=== PATIENT | male | born 1950 | race Caucasian/White ===

== ENCOUNTER 2018-08-16 22:58 | Inpatient (IN) ==
[2018-08-17] LABS: Basophils # 0.1 K/mcL (0.0-0.2); Basophils % 0.5 %; Eosinophils # 0.3 K/mcL (0.0-0.6); Eosinophils % 2.2 %; Hematocrit 41.7 % (37.5-50.1); Hemoglobin 14.4 g/dL (12.9-16.9); Immature Granulocytes % 0.6 % (0-4); Lymphocytes # 2.1 K/mcL (0.6-4.6); Lymphocytes % 16.5 %; Mean Corpuscular HGB Conc 34.5 g/dL (31.6-35.5); Mean Corpuscular Hemoglobin 29.8 pg (28.0-33.3); Mean Corpuscular Volume 86.3 fL (83.0-100.0); Mean Platelet Volume 9.1 fL (9.4-12.4); Monocytes # 1.1 K/mcL (0.0-1.3); Monocytes % 8.7 %; Neutrophils # 9.3 K/mcL (1.6-8.9); Platelet Count 305 K/mcL (140-400); Red Blood Count 4.83 M/mcL (4.19-5.50); Red Cell Distribution Width 12.6 % (11.5-14.5); Segmented Neutrophils % 71.5 %
[2018-08-17 00:06] LABS: Prothrombin Time 11.3 Seconds (9.4-12.1)
[2018-08-17 00:09] LABS: Activated Partial Thrombo Time 36.3 Seconds (26.0-36.0)
[2018-08-17] MEDS ORDERED: Aspirin 325 MG TABLET PO ONE (00:11)
[2018-08-17] MEDS ORDERED: Isovue-370 500 ML BOTTLE IVP ONE (00:12)
[2018-08-17 00:19] LABS: BUN/Creatinine Ratio 14 (6-26); Blood Urea Nitrogen 13 mg/dL (8-23); Calcium 9.4 mg/dL (8.6-10.3); Carbon Dioxide 23 mEq/L (23-29); Chloride 102 mEq/L (98-107); Glucose 218 mg/dL (70-105); Osmolality,Calculated 285 (280-300); Sodium 134 mEq/L (136-145); eGFR For Non-African Americans > 60 (> 60)
[2018-08-17 00:24] LABS: Troponin I 0.05 ng/mL (< 0.04)
--- NOTE | 2018-08-17 00:48 | Emergency Department Note ---
Disposition Clinical Impression: Chest pain Qualifiers: Chest pain type: unspecified Qualified Code(s): R07.9 - Chest pain, unspecified COPD (chronic obstructive pulmonary disease) Qualifiers: COPD type: unspecified COPD Qualified Code(s): J44.9 - Chronic obstructive pulmonary disease, unspecified Disposition: Admitted As Inpatient Condition: Good Chest Pain HPI - General Chief Complaint: ED Chest Pain Stated Complaint: CP/SOB Time Seen by Provider: 08/16/18 23:10 Source: patient, family Limitations: no limitations Vital Signs Reviewed: Yes Nursing Notes Reviewed: Yes - History of Present Illness HPI Narrative: 67-year-old male history of hypertension, diabetes, and coronary arterial disease presents to the emergency department with chest pain and shortness of breath. Patient reports earlier this evening around 2100 experiencing left chest pain. Prior to the episode he was feeling short of breath. 10 minutes later he took 1 nitro which completely resolved his symptoms. He reports a heaviness over the left chest without any radiation. Denies any recent illness fever cough or congestion. 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 He was recently evaluated here the emergency department and found to have elevated troponin with a heart catheterization sh owing severe vessel disease. No intervention was performed at that time. He took an 81 mg aspirin earlier this morning. Denies history of blood clots. Pt complaint: chest pain Severity scale (1-10): 2 - Related Data Home Medications Medication Instructions Recorded Confirmed Diltiazem HCl [Diltiazem 24Hr Cd] 240 mg PO DAILY 08/04/18 08/04/18 Etodolac 400 mg PO BID 08/04/18 08/04/18 Lisinopril [Zestril] 20 mg PO DAILY 08/04/18 08/04/18 Metformin HCl 1,000 mg PO BID 08/04/18 08/04/18 Ranitidine HCl [Acid Auto Refinisher] 150 mg PO BID 08/04/18 08/04/18 Simvastatin [Zocor] 40 mg PO DAILY 08/04/18 08/04/18 Tamsulosin [Flomax] 0.4 mg PO DAILY 08/04/18 08/04/18 glipiZIDE [Glipizide] 10 mg PO DAILY 08/04/18 08/04/18 Previous Rx's Medication Instructions Recorded Aspirin 81 mg PO DAILY 30 Days #30 tab.chew 08/05/18 Clopidogrel [Plavix] 75 mg PO DAILY 30 Days #30 tablet 08/05/18 Metoprolol [Lopressor] 12.5 mg PO BID 30 Days #30 tablet 08/05/18 Nitroglycerin 0.4 mg SL Q8HR PRN 30 Days #90 08/05/18 tab.subl Allergies Allergy/AdvReac Type Severity Reaction Status Date / Time No Known Allergies Allergy Verified 08/16/18 23:08 All systems ED: reviewed and negative except as stated. Review of Systems: As Per HPI Constitutional: Denies: fever, chills ENT ED: Denies: congestion Cardiovascular: Reports: chest pain Respiratory: Reports: dyspnea. Denies: cough Gastrointestinal: Denies: abdominal pain, nausea, vomiting Musculoskeletal: Denies: back pain Integumentary: Denies: rash, abrasion Neurological: Denies: headache, confusion Chest Pain PMH - Past Medical History Medical history: Reports: diabetes, hypertension, other - Social History Smoking Status: Former smoker Alcohol use: Reports: rarely Drug use: Reports: none Physical Exam - General Limitations: no limitations General appearance: alert, in no apparent distress - Head Head exam: atraumatic, normocephalic, normal inspection - Eye Eye exam: Present: normal appearance, PERRL, EOMI - ENT ENT exam: normal exam, normal oropharynx, mucous membranes moist - Neck Neck exam: Present: normal inspection, full ROM, trachea midline - Chest Chest inspection: Present: symmetric chest wall rise, tenderness (Left chest wall) - Respiratory Respiratory exam: Present: normal lung sounds bilaterally. Absent: respiratory distress, wheezes - Cardiovascular Cardiovascular exam: Present: regular rate, normal rhythm, normal heart sounds - Abdominal Exam Abdominal exam: Present: soft, Non-Tender, normal bowel sounds. Absent: tenderness, distention, guarding, rebound, rigidity - Extremities Exam Extremities exam: Present: normal inspection, full ROM, normal capillary refill. Absent: tenderness, pedal edema, calf tenderness - Neurological Exam Neurological exam: Present: alert, oriented X3 - Psychiatric Psychiatric exam: Present: normal affect, normal mood - Skin Skin exam: Present: warm, dry, intact, normal color. Absent: rash, cyanosis, diaphoresis Course Course Narrative: Patient with history of cardiac ischemic disease presenting with chest pain or shortness of breath. Chest pain workup initiated here. EKG without any ischemic findings. Review of his prior hospitalization which showed severe 3 vessel disease including up to 100% occlusion with collaterals. There was no mention of any additional interventions. He denies history of stent placement. Aspirin here. - Reevaluation(s) Reevaluation #1: Chest x-ray with concern for pneumonia. CT scan to evaluate for possible pulmonary embolism was negative. He did have elevated troponin 0.5. BNP was not significantly elevated. Given the associated shortness of breath will treat him for possible healthcare associated pneumonia as he does have a leukocytosis. She will be given IV vancomycin and Zosyn. He will also be admitted for his elevated troponin and chest pain. Patients in agreement with this plan. - Consultations Consultation #1: Spoke with on-call hospitalist sivakumar Reese to admit for HCAP and elevated trop. No further orders at this time Vital Signs Temperature 97.4 F L 08/16/18 23:10 Pulse Rate 93 08/16/18 23:10 Respiratory Rate 16 08/16/18 23:10 Blood Pressure 167/79 08/16/18 23:10 O2 Sat by Pulse Oximetry 98 08/16/18 23:10 Temperature 97.4 F L 08/16/18 23:10 Pulse Rate 67 08/17/18 04:04 Respiratory Rate 19 08/17/18 04:04 Blood Pressure 137/81 08/17/18 04:04 O2 Sat by Pulse Oximetry 97 08/17/18 04:04 Oxygen Delivery Oxygen Delivery Room Air Chest Pain - MDM Narrative Medical decision making narrative: Patient was discussed with my attending physician who agrees with ED management and final disposition. They independently evaluated the patient. Please refer to their attestation to this encounter for additional information. This note was generated by [employer] voice recognition software and as a result grammatical or spelling errors may occur using this program. - Medical Records Medical records reviewed: Yes I reviewed the patient's medical records. - Lab Data Lab results reviewed: Yes I reviewed the patient's lab results. Result diagrams: 08/17/18 04:13 08/16/18 23:48 Lab Results 08/16/18 08/16/18 08/16/18 Range/Units 23:48 23:48 23:48 WBC 13.0 H (4.3-11.1) K/mcL RBC 4.83 (4.19-5.50) M/mcL Hgb 14.4 (12.9-16.9) g/dL Hct 41.7 (37.5-50.1) % MCV 86.3 (83.0-100.0) fL MCH 29.8 (28.0-33.3) pg MCHC 34.5 (31.6-35.5) g/dL RDW 12.6 (11.5-14.5) % Plt Count 305 (140-400) K/mcL MPV 9.1 L (9.4-12.4) fL Immature Gran % 0.6 (0-4) % Seg Neutrophils % 71.5 % Lymphocytes % 16.5 % Monocytes % 8.7 % Eosinophils % 2.2 % Basophils % 0.5 % Neutrophils # 9.3 H (1.6-8.9) K/mcL Lymphocytes # 2.1 (0.6-4.6) K/mcL Monocytes # 1.1 (0.0-1.3) K/mcL Eosinophils # 0.3 (0.0-0.6) K/mcL Basophils # 0.1 (0.0-0.2) K/mcL PT 11.3 (9.4-12.1) Seconds INR 1.0 APTT 36.3 H (26.0-36.0) Seconds Sodium 134 L (136-145) mEq/L Potassium 4.0 (3.5-5.1) mEq/L Chloride 102 (98-107) mEq/L Carbon Dioxide 23 (23-29) mEq/L BUN 13 (8-23) mg/dL Creatinine 0.95 (0.70-1.30) mg/dL Est GFR ( Amer) > 60 (> 60) Est GFR (Non-Af Amer) > 60 (> 60) BUN/Creatinine Ratio 14 (6-26) Glucose 218 H (70-105) mg/dL Calculated Osmolality 285 (280-300) Calcium 9.4 (8.6-10.3) mg/dL Troponin I 0.05 H* (< 0.04) ng/mL B-Natriuretic Peptide (Less than 100) pg/mL 08/17/18 Range/Units 00:39 WBC (4.3-11.1) K/mcL RBC (4.19-5.50) M/mcL Hgb (12.9-16.9) g/dL Hct (37.5-50.1) % MCV (83.0-100.0) fL MCH (28.0-33.3) pg MCHC (31.6-35.5) g/dL RDW (11.5-14.5) % Plt Count (140-400) K/mcL MPV (9.4-12.4) fL Immature Gran % (0-4) % Seg Neutrophils % % Lymphocytes % % Monocytes % % Eosinophils % % Basophils % % Neutrophils # (1.6-8.9) K/mcL Lymphocytes # (0.6-4.6) K/mcL Monocytes # (0.0-1.3) K/mcL Eosinophils # (0.0-0.6) K/mcL Basophils # (0.0-0.2) K/mcL PT (9.4-12.1) Seconds INR APTT (26.0-36.0) Seconds Sodium (136-145) mEq/L Potassium (3.5-5.1) mEq/L Chloride (98-107) mEq/L Carbon Dioxide (23-29) mEq/L BUN (8-23) mg/dL Creatinine (0.70-1.30) mg/dL Est GFR ( Amer) (> 60) Est GFR (Non-Af Amer) (> 60) BUN/Creatinine Ratio (6-26) Glucose (70-105) mg/dL Calculated Osmolality (280-300) Calcium (8.6-10.3) mg/dL Troponin I (< 0.04) ng/mL B-Natriuretic Peptide 31 (Less than 100) pg/mL - Radiology Data Radiology results reviewed: Yes I reviewed the patient's radiology results. Chest X-Ray 08/16/18 23:10 IMPRESSION: Left basilar pulmonary opacity may represent atelectasis, and/or pneumonia. Recommend radiographic follow-up to complete resolution. RECOMMENDATION: Consider follow-up chest radiograph in 6 weeks. D/ / Jeffrey Spencer MD / Jeffrey Spencer MD Interpreting Provider: Jeffrey Spencer MD Chest CTA 08/17/18 00:12 IMPRESSION: No evidence of pulmonary embolism or acute pulmonary abnormality. Coronary artery disease. D/ / Rivera Cameron MD / Rivera Cameron MD Interpreting Provider: Rivera Cameron MD - EKG Data EKG attestation: Yes I reviewed and interpreted this EKG. EKG results narrative: EKG performed 07/16/1990 beats per minute, good R wave progression, no ST elevation or depression, T wave inversion seen in the lateral leads. Compared to prior EKG performed 08/03/2018 with similar consistent findings. No acute ischemic changes. Heart Score - Score History: Moderately Suspicious EKG: Normal Age: Greater than 65 Risk Factors: Equal/Greater than 3 risk factor or history of atherosclerotic disease Troponin: 1-3x normal limit HEART Score Total: 6
[2018-08-17] MEDS ORDERED: Piperacillin/Tazobactam 3.375 GM in 0.9 % Sodium Chloride Mini Bag 100 ML IVPB ONE (03:01)
[2018-08-17] MEDS ORDERED: *HR* Heparin 5,000 UNIT/ML VIAL IVP PRN ×3 (03:15→13:56)
[2018-08-17] MEDS ORDERED: *HR* Heparin 5,000 UNIT/ML VIAL IVP ONE ×2 (03:15→13:56)
[2018-08-17] MEDS ORDERED: Heparin 25,000 UNIT/250 ML D5W 25,000 UNIT/250 ML IV.SOLN IVC SCH (03:15)
--- NOTE | 2018-08-17 03:20 | Emergency Department Note ---
Disposition Clinical Impression: Chest pain Qualifiers: Chest pain type: unspecified Qualified Code(s): R07.9 - Chest pain, unspecified COPD (chronic obstructive pulmonary disease) Qualifiers: COPD type: unspecified COPD Qualified Code(s): J44.9 - Chronic obstructive pulmonary disease, unspecified Disposition: Admitted As Inpatient Condition: Good Forms: ED Satisfaction Letter General Adult HPI - General Chief complaint: ED Chest Pain Stated complaint: CP/SOB Time Seen by Provider: 08/16/18 23:10 Source: patient, family Limitations: no limitations - History of Present Illness Pain Scale: 2 - Related Data Home Medications Medication Instructions Recorded Confirmed Diltiazem HCl [Diltiazem 24Hr Cd] 240 mg PO DAILY 08/04/18 08/04/18 Etodolac 400 mg PO BID 08/04/18 08/04/18 Lisinopril [Zestril] 20 mg PO DAILY 08/04/18 08/04/18 Metformin HCl 1,000 mg PO BID 08/04/18 08/04/18 Ranitidine HCl [Acid Middleware Solutions Architect] 150 mg PO BID 08/04/18 08/04/18 Simvastatin [Zocor] 40 mg PO DAILY 08/04/18 08/04/18 Tamsulosin [Flomax] 0.4 mg PO DAILY 08/04/18 08/04/18 glipiZIDE [Glipizide] 10 mg PO DAILY 08/04/18 08/04/18 Previous Rx's Medication Instructions Recorded Aspirin 81 mg PO DAILY 30 Days #30 tab.chew 08/05/18 Clopidogrel [Plavix] 75 mg PO DAILY 30 Days #30 tablet 08/05/18 Metoprolol [Lopressor] 12.5 mg PO BID 30 Days #30 tablet 08/05/18 Nitroglycerin 0.4 mg SL Q8HR PRN 30 Days #90 08/05/18 tab.subl Allergies Allergy/AdvReac Type Severity Reaction Status Date / Time No Known Allergies Allergy Verified 08/16/18 23:08 Constitutional: Denies: fever, chills ENT ED: Denies: congestion Cardiovascular: Reports: chest pain Respiratory: Reports: dyspnea. Denies: cough Gastrointestinal: Denies: abdominal pain, nausea, vomiting Musculoskeletal: Denies: back pain Integumentary: Denies: rash, abrasion Neurological: Denies: headache, confusion Past Medical History - Past Medical History Medical history: Reports: diabetes, hypertension, other - Social History Smoking Status: Former smoker Smokeless Tobacco Status: Yes (dip) Alcohol use: Reports: rarely Drug use: Reports: none Physical Exam - General Limitations: no limitations General appearance: alert, in no apparent distress Course Vital Signs Temperature 97.4 F L 08/16/18 23:10 Pulse Rate 93 08/16/18 23:10 Respiratory Rate 16 08/16/18 23:10 Blood Pressure 167/79 08/16/18 23:10 O2 Sat by Pulse Oximetry 98 08/16/18 23:10 Temperature 97.4 F L 08/16/18 23:10 Pulse Rate 78 08/17/18 01:45 Respiratory Rate 20 08/17/18 01:45 Blood Pressure 144/73 08/17/18 01:45 O2 Sat by Pulse Oximetry 96 08/17/18 01:45 Oxygen Delivery Oxygen Delivery Room Air Medical Decision Making - Lab Data Result diagrams: 08/16/18 23:48 08/16/18 23:48 Lab Results 08/16/18 08/16/18 08/16/18 Range/Units 23:48 23:48 23:48 WBC 13.0 H (4.3-11.1) K/mcL RBC 4.83 (4.19-5.50) M/mcL Hgb 14.4 (12.9-16.9) g/dL Hct 41.7 (37.5-50.1) % MCV 86.3 (83.0-100.0) fL MCH 29.8 (28.0-33.3) pg MCHC 34.5 (31.6-35.5) g/dL RDW 12.6 (11.5-14.5) % Plt Count 305 (140-400) K/mcL MPV 9.1 L (9.4-12.4) fL Immature Gran % 0.6 (0-4) % Seg Neutrophils % 71.5 % Lymphocytes % 16.5 % Monocytes % 8.7 % Eosinophils % 2.2 % Basophils % 0.5 % Neutrophils # 9.3 H (1.6-8.9) K/mcL Lymphocytes # 2.1 (0.6-4.6) K/mcL Monocytes # 1.1 (0.0-1.3) K/mcL Eosinophils # 0.3 (0.0-0.6) K/mcL Basophils # 0.1 (0.0-0.2) K/mcL PT 11.3 (9.4-12.1) Seconds INR 1.0 APTT 36.3 H (26.0-36.0) Seconds Sodium 134 L (136-145) mEq/L Potassium 4.0 (3.5-5.1) mEq/L Chloride 102 (98-107) mEq/L Carbon Dioxide 23 (23-29) mEq/L BUN 13 (8-23) mg/dL Creatinine 0.95 (0.70-1.30) mg/dL Est GFR ( Amer) > 60 (> 60) Est GFR (Non-Af Amer) > 60 (> 60) BUN/Creatinine Ratio 14 (6-26) Glucose 218 H (70-105) mg/dL Calculated Osmolality 285 (280-300) Calcium 9.4 (8.6-10.3) mg/dL Troponin I 0.05 H* (< 0.04) ng/mL B-Natriuretic Peptide (Less than 100) pg/mL 08/17/18 Range/Units 00:39 WBC (4.3-11.1) K/mcL RBC (4.19-5.50) M/mcL Hgb (12.9-16.9) g/dL Hct (37.5-50.1) % MCV (83.0-100.0) fL MCH (28.0-33.3) pg MCHC (31.6-35.5) g/dL RDW (11.5-14.5) % Plt Count (140-400) K/mcL MPV (9.4-12.4) fL Immature Gran % (0-4) % Seg Neutrophils % % Lymphocytes % % Monocytes % % Eosinophils % % Basophils % % Neutrophils # (1.6-8.9) K/mcL Lymphocytes # (0.6-4.6) K/mcL Monocytes # (0.0-1.3) K/mcL Eosinophils # (0.0-0.6) K/mcL Basophils # (0.0-0.2) K/mcL PT (9.4-12.1) Seconds INR APTT (26.0-36.0) Seconds Sodium (136-145) mEq/L Potassium (3.5-5.1) mEq/L Chloride (98-107) mEq/L Carbon Dioxide (23-29) mEq/L BUN (8-23) mg/dL Creatinine (0.70-1.30) mg/dL Est GFR ( Amer) (> 60) Est GFR (Non-Af Amer) (> 60) BUN/Creatinine Ratio (6-26) Glucose (70-105) mg/dL Calculated Osmolality (280-300) Calcium (8.6-10.3) mg/dL Troponin I (< 0.04) ng/mL B-Natriuretic Peptide 31 (Less than 100) pg/mL Attestation Statement - Attestation Attestation: I examined this patient and my medical decision-making was reviewed with the R amol Physician. I agree with the documented findings, disposition and treatment plan as described except to the extent set forth below. 67 year old male presnts to the ED with complanits of chest pain and SOB and has a histroy fo known blockages which have been determind for medial management although there is consideration for him to be a candidate for CABG. PAtinet has a possible pnuemoina which we have covered with HAP ABX, in addition to hperain therpay for his elevated troponin which is down trending from 2.1. admitted to [facility] accepted by Dr. Delaney
[2018-08-17 04:23] LABS: Hematocrit 43.1 % (37.5-50.1); Hemoglobin 14.7 g/dL (12.9-16.9); Mean Corpuscular HGB Conc 34.1 g/dL (31.6-35.5); Mean Corpuscular Hemoglobin 29.8 pg (28.0-33.3); Mean Corpuscular Volume 87.4 fL (83.0-100.0); Mean Platelet Volume 9.1 fL (9.4-12.4); Platelet Count 312 K/mcL (140-400); Red Blood Count 4.93 M/mcL (4.19-5.50); Red Cell Distribution Width 12.6 % (11.5-14.5)
[2018-08-17 04:31] LABS: Prothrombin Time 10.9 Seconds (9.4-12.1)
[2018-08-17] MEDS ORDERED: MOM Conc 10 ML UD.LIQ PO PRN (08:00)
[2018-08-17] MEDS ORDERED: traMADol 50 MG TABLET PO PRN (08:00)
[2018-08-17] MEDS ORDERED: Mag Hydrox/Al Hydrox/Simeth 30 ML UDC PO PRN (08:00)
[2018-08-17] MEDS ORDERED: Naloxone 0.4 MG/ML INJ IVP PRN (08:00)
[2018-08-17] MEDS ORDERED: Ondansetron 4 MG/2 ML VIAL IVP PRN (08:00)
[2018-08-17] MEDS ORDERED: Acetaminophen 325 MG TABLET PO PRN (08:00)
[2018-08-17] MEDS ORDERED: D5% in Water 1,000 ML IVC PRN (08:04)
[2018-08-17] MEDS ORDERED: Dextrose Gel 15 GM/37.5 ML TUBE PO PRN ×2 (08:04)
[2018-08-17] MEDS ORDERED: *HR* Dextrose 50 % in Water (Syg) 50 ML SYRINGE IVP PRN (08:04)
--- NOTE | 2018-08-17 08:15 | Internal Med History&Physical ---
Date of Encounter: 08/17/18 Time of Encounter: 08:07 Internal Medicine - H&P: HPI Admitted From: Home Plans for Post Hospital Care: Home History of present illness: Mr. Rogers is a 67 year old male with past medical history of hypertension, hyper lipidemia, diabetes, recent diagnosed non-STEMI status post [facility] presented with intermittent chest pain. He was admitted to this hospital on 08/04 for chest pain, troponin was elevated at that time, he underwent cardiac catheter on 08/05 which revealed 35% proximal LAD stenosis, 70% distal LAD stenosis, 90% proximal circumflex stenosis with left to left collateral, 90% OM1, 100% proximal RCA stenosis with left to right collateralization. Echocardiogram that time showed preserved ejection fraction with mild diastolic dysfunction, LV apical outpouching representing diverticulum, no wall motion abnormalities noted. Patient was seen by cardiology and medical management was recommended at that time. He was discharged home with aspirin and Plavix. Patient reported that his chest pain never went away completely after discharge, he still suffering intermittent mild left-sided chest pain, worsened with exertion, relieved by Nitrol, he presented to the ED today, his VS were stable, labs showed mild troponin elevation at 0.05, non-STEMI was suspected, heparin drip was started, patient is admitted for further evaluation and management. CODE STATUS discussed with patient, he wishes for code. Past Med Surg Social Fam HX - Past Medical History Medical history: diabetes, hypertension, other Additional medical history: chronic back pain - Past Surgical History Additional surgical history: bilateral knee replacement, heart cath, - Social History Smoking Status: Former smoker Smokeless Tobacco Status: Yes (dip) Alcohol use: rarely Drug use: none - Family History Mother Family Member Ethnicity: Non- Living Status: Cause of : cancer Hx Family Cancer: Yes (Reproductive cancer) Hx Family Endocrine Disorder: Yes (DM) Father Family Member Ethnicity: Non- Living Status: Cause of : heart attack Hx Family Cardiac Disorders: Yes (OK) Brother Age: 78 Family Member Ethnicity: Non- Living Status: Still Living Hx Family Cardiac Disorders: Yes (Open heart, stents) Hx Family Cancer: Yes (Bone, brain, lung) Hx Family Endocrine Disorder: Yes (DM) Sister Family Member Ethnicity: Non- Living Status: Hx Family Respiratory Disorders: Yes (Asthma) Hx Family Endocrine Disorder: Yes (DM) Internal Medicine - H&P: Meds Diltiazem HCl [Diltiazem 24Hr Cd] 240 mg PO DAILY 08/04/18 [History] Etodolac 400 mg PO BID 08/04/18 [History] Lisinopril [Zestril] 20 mg PO DAILY 08/04/18 [History] Metformin HCl 1,000 mg PO BID 08/04/18 [History] Ranitidine HCl [Acid Society Editor] 150 mg PO BID 08/04/18 [History] Simvastatin [Zocor] 40 mg PO DAILY 08/04/18 [History] Tamsulosin [Flomax] 0.4 mg PO DAILY 08/04/18 [History] glipiZIDE [Glipizide] 10 mg PO DAILY 08/04/18 [History] Aspirin 81 mg PO DAILY 30 Days #30 tab.chew 08/05/18 [Rx] Clopidogrel [Plavix] 75 mg PO DAILY 30 Days #30 tablet 08/05/18 [Rx] Metoprolol [Lopressor] 12.5 mg PO BID 30 Days #30 tablet 08/05/18 [Rx] Nitroglycerin 0.4 mg SL Q8HR PRN 30 Days #90 tab.subl 08/05/18 [Rx] Allergy/AdvReac Type Severity Reaction Status Date / Time No Known Allergies Allergy Verified 08/16/18 23:08 All Systems PM: A 10-system review of systems was performed and is negative for pertinent findings except as documented above in the HPI. Review of systems: REVIEW OF SYSTEMS: CONSTITUTIONAL: No weight loss, fever, chills, weakness or fatigue. HEENT: Eyes: No visual loss, blurred vision, double vision or yellow sclerae. Ears, Nose, Throat: No hearing loss, sneezing, congestion, runny nose or sore throat. SKIN: No rash or itching. CARDIOVASCULAR: see HPI. RESPIRATORY: No shortness of breath, cough or sputum. GASTROINTESTINAL: No anorexia, nausea, vomiting or diarrhea. No abdominal pain or blood. GENITOURINARY: No dysuria, urgency, or frequency. NEUROLOGICAL: No headache, dizziness, syncope, paralysis, ataxia, numbness or tingling in the extremities. No change in bowel or bladder control. MUSCULOSKELETAL: No muscle, back pain, joint pain or stiffness. HEMATOLOGIC: No anemia, bleeding or bruising. LYMPHATICS: No enlarged nodes. No history of splenectomy. PSYCHIATRIC: No history of depression or anxiety. ENDOCRINOLOGIC: No reports of sweating, cold or heat intolerance. No polyuria or polydipsia. - Constitutional Vitals: Temp Pulse Resp BP Pulse Ox 98.1 F 71 18 147/84 94 08/17/18 07:37 08/17/18 07:37 08/17/18 07:37 08/17/18 07:37 08/17/18 07:37 General appearance: Present: A&O X 3 Exam: PHYSICAL EXAMINATION: GENERAL APPEARANCE: The patient is alert, oriented and in no acute distress. HEENT: Head is normocephalic. The sinuses are nontender. Pupils are equal and reactive. The nares are patent. Oropharynx clear without lesions. NECK: Supple without lymphadenopathy. HEART: Regular rate and rhythm. LUNGS: No crackles or wheezes are heard. ABDOMEN: Soft, nontender, nondistended with good bowel sounds heard. Inguinal area is normal. EXTREMITIES: Without cyanosis, clubbing or edema. NEUROLOGICAL: Gross nonfocal. SKIN: Warm and dry without any rash. Internal Med - H&P Results - Labs CBC & Chem 7: 08/17/18 04:13 08/16/18 23:48 Labs: Short CBC 08/16/18 08/17/18 Range/Units 23:48 04:13 WBC 13.0 H 10.9 (4.3-11.1) K/mcL Hgb 14.4 14.7 (12.9-16.9) g/dL Hct 41.7 43.1 (37.5-50.1) % Plt Count 305 312 (140-400) K/mcL Neutrophils # 9.3 H (1.6-8.9) K/mcL BMP 08/16/18 23:48 Sodium 134 L Potassium 4.0 Chloride 102 Carbon Dioxide 23 BUN 13 Creatinine 0.95 Glucose 218 H Calcium 9.4 Cardiac Enzymes 08/16/18 Range/Units 23:48 Troponin I 0.05 H* (< 0.04) ng/mL - Impressions ITS Impressions Chest X-Ray 08/16/18 23:10 IMPRESSION: Left basilar pulmonary opacity may represent atelectasis, and/or pneumonia. Recommend a radiographic follow-up to complete resolution. RECOMMENDATION: Consider follow-up chest radiograph in 6 weeks. D/ / 08/17/2018 07:08:10 Jeffrey Spencer MD / [email or web address] Interpreting Provider: Jeffrey Spencer MD Chest CTA 08/17/18 00:12 IMPRESSION: No evidence of pulmonary embolism or acute pulmonary abnormality. Coronary artery disease. D/ / Rivera Cameron MD / Rivera Cameron MD Interpreting Provider: Rivera Cameron MD - Assessment and Plan (1) Chest pain Current Visit: Yes Status: Acute Assessment and plan: 67-year-old old male with past medical history of diabetes, hypertension, hyperlipidemia, and recent diagnosis nonsystemic presented with intermittent chest pain. His recent LHC showed diffuse vessel disease with good collaterals, stent was placed, medical management was recommended. Per patient, after discharge, his chest pain never completely went away, typically it lasted 5 minutes, exacerbated by exertion, and relieved by nitroglycerin. Given his risk factors for CAD, microvascular disease is likely. Based on the history, this is chest pain is more chronic rather than acute. The borderline elevation of troponin is most likely the residual of recent non- STEMI. Therefore heparin drip was DC'd. Continue cycling troponin, telemetry monitoring, and EKG as needed. Cardiology was consulted, appreciate help. Qualifiers: Chest pain type: chest pain due to myocardial ischemia Ischemic chest pain type: unspecified angina pectoris type Qualified Code(s): I25.9 - Chronic ischemic heart disease, unspecified (2) NSTEMI (non-ST elevated myocardial infarction) Current Visit: No Status: Chronic Assessment and plan: Patient was recently diagnosed with non-STEMI, cardiac catheter showed diffused coronary artery stenosis with good collaterals. No stent was placed at that time, patient was placed on aspirin and Plavix. We will continue cycle troponin, telemetry monitoring. (3) Diabetes Current Visit: No Status: Chronic Assessment and plan: Hold metformin for now, started patient on insulin sliding scale. Qualifiers: Diabetes mellitus type: type 2 Diabetes mellitus intermediate insulin use: without intermediate use Diabetes mellitus complication status: with unspecified complications Qualified Code(s): E11.8 - Type 2 diabetes mellitus with unspecified complications (4) HTN (hypertension) Current Visit: No Status: Chronic Assessment and plan: BP controlled, continue home medications. Qualifiers: Hypertension type: essential hypertension Qualified Code(s): I10 - Essential (primary) hypertension (5) HLD (hyperlipidemia) Current Visit: No Status: Chronic Assessment and plan: Continue home medications. Qualifiers: Hyperlipidemia type: pure hypercholesterolemia Qualified Code(s): E78.00 - Pure hypercholesterolemia, unspecified; E78.0 - Pure hypercholesterolemia (6) COPD (chronic obstructive pulmonary disease) Current Visit: Yes Status: Acute Assessment and plan: Respiratory status stable, continue home medications. Qualifiers: COPD type: unspecified COPD Qualified Code(s): J44.9 - Chronic obstructive pulmonary disease, unspecified (7) DVT prophylaxis Current Visit: No Status: Chronic Assessment and plan: Heparin subcutaneous. - Time Spent With Patient Total time spent is greater than 50% in coordination of care (as documented) at patient's floor/unit and/or counseling patient: Greater than 35 minutes
[2018-08-17] MEDS: Aspirin 81 MG TAB.CHEW PO SCH (08:50)
[2018-08-17] MEDS: Insulin LISPRO 300 UNITS/3 ML VIAL SQ SCH ×3 (13:04→20:25)
[2018-08-17 14:45] LABS: Hematocrit 43.2 % (37.5-50.1); Hemoglobin 14.9 g/dL (12.9-16.9); Mean Corpuscular HGB Conc 34.5 g/dL (31.6-35.5); Mean Corpuscular Volume 87.1 fL (83.0-100.0); Mean Platelet Volume 9.1 fL (9.4-12.4); Platelet Count 318 K/mcL (140-400); Red Blood Count 4.96 M/mcL (4.19-5.50); Red Cell Distribution Width 12.7 % (11.5-14.5)
[2018-08-17 14:53] LABS: Prothrombin Time 11.3 Seconds (9.4-12.1)
--- NOTE | 2018-08-17 14:55 | Cardiology Consult Note ---
<Ezequiel Carbajal Brittanie - Last Filed: 08/17/18 14:48> Date of Encounter: 08/17/18 Time of Encounter: 14:48 Assessment and Plan (1) NSTEMI (non-ST elevated myocardial infarction) Current Visit: No Status: Chronic S/p recent [place] and [facility] 08/04/18 with no intervention medical management recommended. [facility] 08/04/18 35% prox LAD, 70% distal LAD, 90% prox circ, with left to left collaterals, 90% OM1, 100% prox RCA with Left to right collaterals. Medical man agement was recommended. TTE with LVEF preserved, mild diastolic dysfunction, LV apical outpouching representing diverticulum, no wall motion abnormalities noted. EKG this admission wih no acute ST changes. Troponin elevated at 0.05, 0.76. Continue to trend. We will continue to optimize medical management. Increase imdur. We will have interventionalist review films in the morning to discuss continued medical management or possible PCI. NPO after midnight. Patient and family agree with plan. Continue asa, plavix, lopressor. Heparin gtt. Discussion w patient/family: The assessment and plan as outlined above was discussed with the patient and/or family members who expressed understanding and agreement. All questions were answered. Thank you for involving us in the care of your patient. Please call with any questions. History of Present Illness Consult date: 08/17/18 Requesting physician: Darius Lindsey Consult reason: recurrent chest pain, elevated troponin Chief complaint: Intermittent chest pain History of present illness: Mr. Rogers is a 67 year old male s/p recent NSTEMI troponin up to 2.51 on 08/04/18, DM, HTN, and CVA who presents with recurrent chest pain. C/o intermittent chest pain since discharge. Pain is left sided radiating to his back and usually occurs at night or after eating. [facility] 08/04/18 35% prox LAD, 70% distal LAD, 90% prox circ, with left to left collaterals, 90% OM1, 100% prox RCA with Left to right collaterals. Medical management was recommended. He was seen in the cardiology office last and started on imdur 30 mg daily for his symptoms. He unfortunately continued to have symptoms and used his SL NTG last night for increasing pain. Past Med Surg Social Fam HX - Past Medical History Medical history: coronary artery disease, CVA, diabetes, hypertension, myocardial infarction, other Additional medical history: chronic back pain - Past Surgical History Additional surgical history: bilateral knee replacement, heart cath, - Social History Smoking Status: Former smoker Smokeless Tobacco Status: Yes (dip) Alcohol use: rarely Drug use: none - Family History Brother Age: 78 Family Member Ethnicity: Non- Living Status: Still Living Hx Family Cardiac Disorders: Yes (Open heart, stents) Hx Family Cancer: Yes (Bone, brain, lung) Hx Family Endocrine Disorder: Yes (DM) Father Family Member Ethnicity: Non- Living Status: Cause of : heart attack Hx Family Cardiac Disorders: Yes (NC) Mother Family Member Ethnicity: Non- Living Status: Cause of : cancer Hx Family Cancer: Yes (Reproductive cancer) Hx Family Endocrine Disorder: Yes (DM) Sister Family Member Ethnicity: Non- Living Status: Hx Family Respiratory Disorders: Yes (Asthma) Hx Family Endocrine Disorder: Yes (DM) Medications and Allergies RX: Diltiazem HCl [Diltiazem 24Hr Cd] 240 mg PO DAILY 08/04/18 [History] RX: Etodolac 400 mg PO BID 08/04/18 [History] RX: Lisinopril [Zestril] 20 mg PO DAILY 08/04/18 [History] RX: Metformin HCl 1,000 mg PO BID 08/04/18 [History] RX: Ranitidine HCl [Acid Storage Manager] 150 mg PO BID 08/04/18 [History] RX: Simvastatin [Zocor] 40 mg PO DAILY 08/04/18 [History] RX: Tamsulosin [Flomax] 0.4 mg PO BID 08/04/18 [History] RX: glipiZIDE [Glipizide] 10 mg PO DAILY 08/04/18 [History] RX: Aspirin 81 mg PO DAILY 30 Days #30 tab.chew 08/05/18 [Rx] RX: Clopidogrel [Plavix] 75 mg PO DAILY 30 Days #30 tablet 08/05/18 [Rx] Isosorbide MONOnitrate [Isosorbide Mononitrate ER] 30 mg PO DAILY 08/18/18 [History] RX: Metoprolol [Lopressor] 25 mg PO DAILY 08/18/18 [History] RX: Nitroglycerin 0.4 mg SL Q5M PRN 08/18/18 [History] Allergy/AdvReac Type Severity Reaction Status Date / Time No Known Allergies Allergy Verified 08/18/18 10:09 All Systems Review: The remainder of the systems were reviewed and are negative Physical Examination Vital Signs, Last 4 Hours Temp Pulse Resp BP Pulse Ox 08/17/18 11:14 97.4 F L 78 17 151/85 95 General: Conversant, No Apparent Distress HEENT: Atraumatic, Normocephaly, Mucus Membranes Moist Neck: No JVD, Normal carotid pulses Cardiac: Reg Rate and Rhythm, Normal S1 and S2, No Murmur Lungs: Normal Breath Sounds, No Wheeze, Rales, Rhonchi Neuro: Alert and responsive, No focal deficits noted Abdomen: Soft, Non-Tender Skin: No rashes noted on visualized skin Musculoskeletal: No Chest Wall Tenderness Extremities: No Clubbing, No Cyanosis, No Edema, Normal Pulses Results 08/17/18 14:14 08/16/18 23:48 Lab Results 08/16/18 08/16/18 08/16/18 23:48 23:48 23:48 WBC 13.0 H Hgb 14.4 Hct 41.7 Plt Count 305 INR 1.0 APTT 36.3 H Sodium 134 L Potassium 4.0 Chloride 102 Carbon Dioxide 23 BUN 13 Creatinine 0.95 Glucose 218 H Calcium 9.4 Troponin I 0.05 H* B-Natriuretic Peptide 08/17/18 08/17/18 08/17/18 00:39 04:13 04:13 WBC 10.9 Hgb 14.7 Hct 43.1 Plt Count 312 INR 1.0 APTT Sodium Potassium Chloride Carbon Dioxide BUN Creatinine Glucose Calcium Troponin I B-Natriuretic Peptide 31 08/17/18 08/17/18 12:16 14:14 WBC 9.5 Hgb 14.9 Hct 43.2 Plt Count 318 INR APTT Sodium Potassium Chloride Carbon Dioxide BUN Creatinine Glucose Calcium Troponin I 0.76 H* B-Natriuretic Peptide - Imaging and Cardiology Echo: report reviewed Cardiac cath: report reviewed Consult Discharge Plan - Plan Referrals: Kendall Garcia DO [Primary Care Provider] - 08/24/18 1:00 pm (You will see Elly Blanco due to appointment availability) <Get Griffiths - Last Filed: 08/18/18 16:07> Date of Encounter: 08/18/18 - Attending Attestation I have personally performed a face to face evaluation on this patient. I have reviewed and agree with the care plan. History and Exam by me shows: 67-year-old male presents to the emergency department with chest pain. Patient had recent LHC found to have severe disease of the proximal circumflex and 100% occlusion of the RCA both receiving collaterals from the LAD. Discussed options with the patient including optimization of medical management versus possible CABG and Dr. Zamorano from cardiothoracic surgery will discuss further with the patient. Assessment and Plan Discussion w patient/family: The assessment and plan as outlined above was discussed with the patient and/or family members who expressed understanding and agreement. All questions were answered. Thank you for involving us in the care of your patient. Please call with any questions. History of Present Illness History of present illness: Mr. Rogers is a 67 year old male All Systems Review: The remainder of the systems were reviewed and are negative Results 08/18/18 05:02 08/18/18 05:02 Lab Results 08/17/18 08/17/18 08/18/18 18:02 20:59 05:02 WBC 8.3 Hgb 14.0 Hct 41.5 Plt Count 291 Sodium Potassium Chloride Carbon Dioxide BUN Creatinine Glucose Calcium Troponin I 0.57 H* 0.40 H* 08/18/18 05:02 WBC Hgb Hct Plt Count Sodium 136 Potassium 4.1 Chloride 101 Carbon Dioxide 25 BUN 11 Creatinine 0.97 Glucose 157 H Calcium 9.5 Troponin I
[2018-08-17] MEDS: Heparin 25,000 UNIT/250 ML D5W 25,000 UNIT/250 ML IV.SOLN IVC SCH (14:57)
[2018-08-17] MEDS: Isosorbide MONOnitrate (24 HR) 60 MG TAB.ER.24H PO SCH (14:58)
--- NOTE | 2018-08-17 16:17 | Electrocardiograph Report ---
[employer] Test Date: 2018-08-16 Pat Name: Leo Rogers Department: [id number] Room: 3B49 Gender: M Learning Support Specialist: Ivone : 1950 Requested By: Angela Carvalho Order Number: [id number] Reading MD: Toribio Brannon Measurements Intervals [place] Rate: 91 P: 37 OR: 184 QRS: -12 QRSD: 98 T: 85 QT: 351 QTc: 399 Interpretive Statements SINUS RHYTHM MODERATE ST DEPRESSION Electronically Signed On 08-17-2018 16:16:00 EDT by Toribio Brannon
[2018-08-17] MEDS ORDERED: *HR* Heparin 5,000 UNIT/ML VIAL SQ SCH (18:00)
[2018-08-18 05:43] LABS: Hematocrit 41.5 % (37.5-50.1); Mean Corpuscular HGB Conc 33.7 g/dL (31.6-35.5); Mean Corpuscular Hemoglobin 29.5 pg (28.0-33.3); Mean Corpuscular Volume 87.6 fL (83.0-100.0); Mean Platelet Volume 9.4 fL (9.4-12.4); Platelet Count 291 K/mcL (140-400); Red Blood Count 4.74 M/mcL (4.19-5.50); Red Cell Distribution Width 12.7 % (11.5-14.5)
[2018-08-18] MEDS: Heparin 25,000 UNIT/250 ML D5W 25,000 UNIT/250 ML IV.SOLN IVC SCH (05:56)
[2018-08-18 06:03] LABS: BUN/Creatinine Ratio 11 (6-26); Blood Urea Nitrogen 11 mg/dL (8-23); Calcium 9.5 mg/dL (8.6-10.3); Carbon Dioxide 25 mEq/L (23-29); Chloride 101 mEq/L (98-107); Glucose 157 mg/dL (70-105); Osmolality,Calculated 285 (280-300); Potassium 4.1 mEq/L (3.5-5.1); Sodium 136 mEq/L (136-145); eGFR For Non-African Americans > 60 (> 60)
[2018-08-18] MEDS: Insulin LISPRO 300 UNITS/3 ML VIAL SQ SCH ×4 (07:58→20:35)
[2018-08-18] MEDS: Isosorbide MONOnitrate (24 HR) 60 MG TAB.ER.24H PO SCH (10:04)
[2018-08-18] MEDS: Aspirin 81 MG TAB.CHEW PO SCH (10:04)
--- NOTE | 2018-08-18 14:26 | Cardiology Progress Note ---
Date of Encounter: 08/18/18 Time of Encounter: 12:30 Assessment and Plan (1) NSTEMI (non-ST elevated myocardial infarction) Current Visit: No Status: Chronic Per cardiology: -S/p recent [place] and [facility] 08/04/18 with no intervention medical management recommend ed. -[facility] 08/04/18 35% prox LAD, 70% distal LAD, 90% prox circ, with left to left collaterals, 90% OM1, 100% prox RCA with Left to right collaterals. Medical management was recommended. -TTE with LVEF preserved, mild diastolic dysfunction, LV apical outpouching representing diverticulum, no wall motion abnormalities noted. -EKG this admission wih no acute ST changes. -Troponin elevated at 0.05, 0.76, 0.57, 0.4. -[facility] films were reviewed by interventionalist, who recommended consult to CT surgery. Consult order placed, spoke with . Discussed and reviewed with patient and family. Will hold plavix, until evaluated by CT surgery. Discussion w patient/family: The assessment and plan as outlined above was discussed with the patient and/or family members who expressed understanding and agreement. All questions were answered. Thank you for involving us in the care of your patient. Please call with any questions. Discussed and reviewed with Subjective Principal diagnosis: NSTEMI Interval history: Patient denies chest pain. Reports he is has been up walking today without chest pain. Objective Vital Signs, Last 4 Hours Temp Pulse Resp BP Pulse Ox 08/18/18 10:34 98.0 F 79 16 135/91 96 General: Conversant, No Apparent Distress HEENT: Atraumatic, Normocephaly, Mucus Membranes Moist Neck: No JVD, Normal carotid pulses Cardiac: Reg Rate and Rhythm, Normal S1 and S2, No Murmur Lungs: Normal Breath Sounds, No Wheeze, Rales, Rhonchi Neuro: Alert and responsive, No focal deficits noted Abdomen: Soft, Non-Tender Skin: No rashes noted on visualized skin Musculoskeletal: No Chest Wall Tenderness Extremities: No Clubbing, No Cyanosis, No Edema, Normal Pulses Results 08/18/18 05:02 08/18/18 05:02 Lab Results Impressions Chest X-Ray 08/16/18 23:10 IMPRESSION: Left basilar pulmonary opacity may represent atelectasis, and/or pneumonia. Recommend a radiographic follow-up to complete resolution. RECOMMENDATION: Consider follow-up chest radiograph in 6 weeks. D/ / 08/17/2018 07:08:10 Jeffrey Spencer MD / [email or web address] Interpreting Provider: Jeffrey Spencer MD Active Medications Acetaminophen (Tylenol) 650 mg PO Q6HR PRN PRN Reason: Mild Pain/Fever Stop: 02/16/19 08:01 Al Hydrox/Mg Hydrox/Simethicone (Maalox) 15 ml PO Q6HR PRN PRN Reason: Dyspepsia Stop: 02/16/19 08:01 Aspirin (Aspirin) 81 mg PO DAILY NAMRATA Stop: 02/16/19 09:01 Last Admin: 08/18/18 10:04 Dose: 81 mg Clopidogrel Bisulfate (Plavix) 75 mg PO DAILY NAMRATA Stop: 02/16/19 09:01 Last Admin: 08/18/18 10:05 Dose: 75 mg Dextrose/Water (Dextrose 50% (Syg)) 25 ml IVP AD PRN PRN Reason: Hypoglycemia Stop: 02/16/19 08:05 Glucagon (Glucagen) 1 mg IM ONCE PRN PRN Reason: Hypoglycemia Stop: 02/16/19 08:05 Glucose (Gluctose) 15 gm PO ONCE PRN PRN Reason: Hypoglycemia Stop: 02/16/19 08:05 Glucose (Gluctose) 30 gm PO ONCE PRN PRN Reason: Hypoglycemia Stop: 02/16/19 08:05 Heparin Sodium (Porcine) (Heparin) 8,700 unit 70 unit/kg (8700 unit) IVP Q6HR PRN PRN Reason: SEE COMMENTS Stop: 02/16/19 13:57 Heparin Sodium (Porcine) (Heparin) 4,300 unit 35 unit/kg (4300 unit) IVP Q6H PRN PRN Reason: SEE COMMENTS Stop: 02/16/19 13:57 Dextrose (Dextrose 5%) 1,000 mls @ 100 mls/hr IVC .Q10H PRN PRN Reason: HYPOGLYCEMIA Stop: 02/16/19 08:05 Heparin Sodium/Dextrose (Heparin 25,000 Unit/250 Ml D5w) 25,000 unit in 250 mls @ 17.318 mls/hr IVC .[id number] [facility]; Protocol Stop: 02/16/19 14:01 Last Admin: 08/18/18 05:56 Dose: 10.99 unit/kg/hr, 13.6 mls/hr Insulin Human Lispro (Humalog) 0 units SQ HS [facility]; Protocol Stop: 02/16/19 21:01 Last Admin: 08/17/18 20:25 Dose: Not Given Insulin Human Lispro (Humalog) 0 units SQ TIDAC [facility]; Protocol Stop: 02/16/19 11:31 Last Admin: 08/18/18 12:24 Dose: Not Given Isosorbide Mononitrate (Imdur) 60 mg PO DAILY [facility] Stop: 02/16/19 15:01 Last Admin: 08/18/18 10:04 Dose: 60 mg Magnesium Hydroxide (Milk Of Magnesia Conc) 10 ml PO DAILY PRN PRN Reason: Constipation Stop: 02/16/19 08:01 Metoprolol Tartrate (Lopressor) 12.5 mg PO BID [facility] Stop: 02/16/19 09:01 Last Admin: 08/18/18 10:04 Dose: 12.5 mg Naloxone HCl (Narcan) 0.4 mg IVP Q2M PRN PRN Reason: SEE COMMENTS Stop: 02/16/19 08:01 Ondansetron HCl (Zofran) 4 mg IVP Q8HR PRN PRN Reason: Nausea And Vomiting Stop: 02/16/19 08:01 Promethazine HCl (Phenergan) 12.5 mg PO Q6HR PRN PRN Reason: Nausea And Vomiting Stop: 02/16/19 08:01 Tramadol HCl (Ultram) 50 mg PO Q6HR PRN PRN Reason: Moderate Pain Stop: 02/16/19 08:01 Laboratory Tests 08/16/18 08/17/18 08/17/18 23:48 12:16 18:02 Hgb Creatinine Troponin I 0.05 H* 0.76 H* 0.57 H* 08/17/18 08/18/18 08/18/18 20:59 05:02 05:02 Hgb 14.0 Creatinine 0.97 Troponin I 0.40 H* - Imaging and Cardiology Chest Xray: report reviewed Echo: report reviewed Cardiac cath: report reviewed - EKG Interpretation EKG results cardiology: other (Telemetry reviewed with average HR previous 12 hours noted to be 67, SR. PVCs and PACs noted.) Consult Discharge Plan - Plan Referrals: Kendall Garcia DO [Primary Care Provider] - 08/24/18 1:00 pm (You will see Elly Blanco due to appointment availability)
--- NOTE | 2018-08-18 15:00 | Internal Med Progress Note ---
Hospitalist Progress Note - Encounter Date of Encounter: 08/18/18 Time of Encounter: 15:00 - Subjective Interval History: Patient was seen and examined at bedside. Currently patient is a bleeding around any difficulty denies any chest pain or shortness of breath. I did discuss this case with cardiology recommending evaluation by cardiothoracic surgeon. Discussed cardiothoracic consult with patient and family were bedside verbalized understanding. - Exam Vitals: Temp Pulse Resp BP Pulse Ox 98.0 F 79 16 135/91 96 08/18/18 10:34 08/18/18 10:34 08/18/18 10:34 08/18/18 10:34 08/18/18 10:34 Exam: PHYSICAL EXAMINATION: GENERAL APPEARANCE: The patient is alert, oriented and in no acute distress. HEENT: Head is normocephalic. The sinuses are nontender. Pupils are equal and reactive. The nares are patent. Oropharynx clear without lesions. NECK: Supple without lymphadenopathy. HEART: Regular rate and rhythm. LUNGS: No crackles or wheezes are heard. ABDOMEN: Soft, nontender, nondistended with good bowel sounds heard. Inguinal area is normal. EXTREMITIES: Without cyanosis, clubbing or edema. NEUROLOGICAL: Gross nonfocal. SKIN: Warm and dry without any rash. - Assessment and Plan (1) Chest pain Current Visit: Yes Status: Acute Assessment and Plan: 67-year-old old male with past medical history of diabetes, hypertension, h yperlipidemia, and recent diagnosis nonsystemic presented with intermittent chest pain. His recent LHC showed diffuse vessel disease with good collaterals, stent was placed, medical management was recommended. Per patient, after discharge, his chest pain never completely went away, typically it lasted 5 minutes, exacerbated by exertion, and relieved by nitroglycerin. Given his risk factors for CAD, microvascular disease is likely. Currently denies any chest pain troponin has been [id number] currently on heparin drip cardiology has been consulted recommending cardio thoracic consultation for possible open heart Continue cardiac monitoring-nitroglycerin as needed for chest pain (2) Diabetes Current Visit: No Status: Chronic Assessment and Plan: Hold metformin for now, started patient on insulin sliding scale. Accu-Cheks before meals at bedtime (3) HTN (hypertension) Current Visit: No Status: Chronic Assessment and Plan: BP controlled, continue home medications. (4) HLD (hyperlipidemia) Current Visit: No Status: Chronic Assessment and Plan: Continue home medications. (5) DVT prophylaxis Current Visit: No Status: Chronic Assessment and Plan: Heparin drip (6) NSTEMI (non-ST elevated myocardial infarction) Current Visit: No Status: Chronic Assessment and Plan: Patient was recently diagnosed with non-STEMI, cardiac catheter showed diffused coronary artery stenosis with good collaterals. No stent was placed at that time, patient was placed on aspirin and Plavix. Troponins continue to be elevated cardiology has been consulted awaiting cardiothoracic recommendations Continue with heparin drip (7) COPD (chronic obstructive pulmonary disease) Current Visit: Yes Status: Acute Assessment and Plan: Respiratory status stable, continue home medications. - Time Spent with Patient Total time spent is greater than 50% in coordination of care (as documented) at patient's floor/unit and/or counseling patient: Internal Medicine: Result - Labs CBC & Chem 7: 08/18/18 05:02 08/18/18 05:02 Labs: Short CBC 08/18/18 Range/Units 05:02 WBC 8.3 (4.3-11.1) K/mcL Hgb 14.0 (12.9-16.9) g/dL Hct 41.5 (37.5-50.1) % Plt Count 291 (140-400) K/mcL BMP 08/18/18 05:02 Sodium 136 Potassium 4.1 Chloride 101 Carbon Dioxide 25 BUN 11 Creatinine 0.97 Glucose 157 H Calcium 9.5 Cardiac Enzymes 08/17/18 08/17/18 Range/Units 18:02 20:59 Troponin I 0.57 H* 0.40 H* (< 0.04) ng/mL - ABG Interpretation ABG results: PT/INR, D-dimer PT 11.3 Seconds (9.4-12.1) 08/17/18 14:14 - Impressions Impressions Chest X-Ray 08/16/18 23:10 IMPRESSION: Left basilar pulmonary opacity may represent atelectasis, and/or pneumonia. Recommend a radiographic follow-up to complete resolution. RECOMMENDATION: Consider follow-up chest radiograph in 6 weeks. D/ / 08/17/2018 07:08:10 Jeffrey Spencer MD / kimmie Interpreting Provider: Jeffrey Spencer MD Consult Discharge Plan - Plan Referrals: Kendall Garcia DO [Primary Care Provider] - 08/24/18 1:00 pm (You will see Elly Blanco due to appointment availability) (1) Chest pain Qualifiers: Chest pain type: chest pain due to myocardial ischemia Ischemic chest pain type: unspecified angina pectoris type Qualified Code(s): I25.9 - Chronic ische wili heart disease, unspecified (2) Diabetes Qualifiers: Diabetes mellitus type: type 2 Diabetes mellitus alf insulin use: without case manager specialist use Diabetes mellitus complication status: with unspecified complications Qualified Code(s): E11.8 - Type 2 diabetes mellitus with unspecified complications (3) HTN (hypertension) Qualifiers: Hypertension type: essential hypertension Qualified Code(s): I10 - Essential (primary) hypertension (4) HLD (hyperlipidemia) Qualifiers: Hyperlipidemia type: pure hypercholesterolemia Qualified Code(s): E78.00 - Pure hypercholesterolemia, unspecified; E78.0 - Pure hypercholesterolemia (7) COPD (chronic obstructive pulmonary disease) Qualifiers: COPD type: unspecified COPD Qualified Code(s): J44.9 - Chronic obstructive pulmonary disease, unspecified
[2018-08-19] MEDS: Heparin 25,000 UNIT/250 ML D5W 25,000 UNIT/250 ML IV.SOLN IVC SCH ×2 (01:00→20:30)
[2018-08-19 06:02] LABS: Basophils # 0.1 K/mcL (0.0-0.2); Basophils % 0.6 %; Eosinophils # 0.3 K/mcL (0.0-0.6); Eosinophils % 3.6 %; Hematocrit 42.5 % (37.5-50.1); Hemoglobin 14.4 g/dL (12.9-16.9); Immature Granulocytes % 0.5 % (0-4); Lymphocytes # 2.1 K/mcL (0.6-4.6); Mean Corpuscular HGB Conc 33.9 g/dL (31.6-35.5); Mean Corpuscular Hemoglobin 29.6 pg (28.0-33.3); Mean Corpuscular Volume 87.4 fL (83.0-100.0); Mean Platelet Volume 9.3 fL (9.4-12.4); Monocytes # 0.9 K/mcL (0.0-1.3); Monocytes % 10.9 %; Platelet Count 305 K/mcL (140-400); Red Blood Count 4.86 M/mcL (4.19-5.50); Red Cell Distribution Width 12.6 % (11.5-14.5); Segmented Neutrophils % 59.4 %
[2018-08-19 06:23] LABS: BUN/Creatinine Ratio 10 (6-26); Blood Urea Nitrogen 9 mg/dL (8-23); Calcium 9.6 mg/dL (8.6-10.3); Carbon Dioxide 25 mEq/L (23-29); Chloride 100 mEq/L (98-107); Glucose 130 mg/dL (70-105); Osmolality,Calculated 282 (280-300); Potassium 3.8 mEq/L (3.5-5.1); Sodium 136 mEq/L (136-145); eGFR For Non-African Americans > 60 (> 60)
[2018-08-19] MEDS: Insulin LISPRO 300 UNITS/3 ML VIAL SQ SCH ×4 (08:52→22:13)
[2018-08-19] MEDS: Aspirin 81 MG TAB.CHEW PO SCH (08:53)
[2018-08-19] MEDS: Isosorbide MONOnitrate (24 HR) 60 MG TAB.ER.24H PO SCH (08:53)
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
--- NOTE | 2018-08-19 12:37 | Cardiology Progress Note ---
Date of Encounter: 08/19/18 Time of Encounter: 12:35 Assessment and Plan (1) NSTEMI (non-ST elevated myocardial infarction) Current Visit: No Status: Chronic Per cardiology: -S/p recent [place] [facility] 08/04/18 with no intervention medical management recommend ed. -C 08/04/18 35% prox LAD, 70% distal LAD, 90% prox circ, with left to left collaterals, 90% OM1, 100% prox RCA with Left to right collaterals. Medical management was recommended. -TTE with LVEF preserved, mild diastolic dysfunction, LV apical outpouching representing diverticulum, no wall motion abnormalities noted. -EKG this admission wih no acute ST changes. -Troponin elevated at 0.05, 0.76, 0.57, 0.4. -CT surgery was consulted and recommend CABG. Plan for CABG Thursday to allow plavix wash out. -Discussed and reviewed with , recommend inpatient CABG with recurrent NSTEMI. Continue heparin drip. -Cardiology will sign off, will arrange follow up after CABG. Discussion w patient/family: The assessment and plan as outlined above was discussed with the patient and/or family members who expressed understanding and agreement. All questions were answered. Thank you for involving us in the care of your patient. Please call with any questions. Discussed and reviewed with Subjective Principal diagnosis: NSTEMI Interval history: Patient denies chest pain. Reports he is has been up walking today without chest pain. Objective Vital Signs, Last 4 Hours Temp Pulse Resp BP Pulse Ox 08/19/18 10:48 97.7 F 78 20 148/82 99 General: Conversant, No Apparent Distress HEENT: Atraumatic, Normocephaly, Mucus Membranes Moist Neck: No JVD, Normal carotid pulses Cardiac: Reg Rate and Rhythm, Normal S1 and S2, No Murmur Lungs: Normal Breath Sounds, No Wheeze, Rales, Rhonchi Neuro: Alert and responsive, No focal deficits noted Abdomen: Soft, Non-Tender Skin: No rashes noted on visualized skin Musculoskeletal: No Chest Wall Tenderness Extremities: No Clubbing, No Cyanosis, No Edema, Normal Pulses Results 08/19/18 05:13 08/19/18 05:13 Lab Results 08/19/18 08/19/18 05:13 05:13 WBC 8.4 Hgb 14.4 Hct 42.5 Plt Count 305 Sodium 136 Potassium 3.8 Chloride 100 Carbon Dioxide 25 BUN 9 Creatinine 0.93 Glucose 130 H Calcium 9.6 Active Medications Acetaminophen (Tylenol) 650 mg PO Q6HR PRN PRN Reason: Mild Pain/Fever Stop: 02/16/19 08:01 Al Hydrox/Mg Hydrox/Simethicone (Maalox) 15 ml PO Q6HR PRN PRN Reason: Dyspepsia Stop: 02/16/19 08:01 Aspirin (Aspirin) 81 mg PO DAILY NAMRATA Stop: 02/16/19 09:01 Last Admin: 08/19/18 08:53 Dose: 81 mg Atorvastatin Calcium (Lipitor) 40 mg PO HS [facility] Stop: 02/17/19 21:01 Last Admin: 08/18/18 20:33 Dose: 40 mg Clopidogrel Bisulfate (Plavix) 75 mg PO DAILY [facility] Stop: 02/16/19 09:01 Last Admin: 08/18/18 10:05 Dose: 75 mg Dextrose/Water (Dextrose 50% (Syg)) 25 ml IVP AD PRN PRN Reason: Hypoglycemia Stop: 02/16/19 08:05 Glucagon (Glucagen) 1 mg IM ONCE PRN PRN Reason: Hypoglycemia Stop: 02/16/19 08:05 Glucose (Gluctose) 15 gm PO ONCE PRN PRN Reason: Hypoglycemia Stop: 02/16/19 08:05 Glucose (Gluctose) 30 gm PO ONCE PRN PRN Reason: Hypoglycemia Stop: 02/16/19 08:05 Heparin Sodium (Porcine) (Heparin) 8,700 unit 70 unit/kg (8700 unit) IVP Q6HR PRN PRN Reason: SEE COMMENTS Stop: 02/16/19 13:57 Heparin Sodium (Porcine) (Heparin) 4,300 unit 35 unit/kg (4300 unit) IVP Q6H PRN PRN Reason: SEE COMMENTS Stop: 02/16/19 13:57 Dextrose (Dextrose 5%) 1,000 mls @ 100 mls/hr IVC .Q10H PRN PRN Reason: HYPOGLYCEMIA Stop: 02/16/19 08:05 Heparin Sodium/Dextrose (Heparin 25,000 Unit/250 Ml D5w) 25,000 unit in 250 mls @ 17.318 mls/hr IVC .[id number] NAMRATA; Protocol Stop: 02/16/19 14:01 Last Admin: 08/19/18 01:00 Dose: 10.99 unit/kg/hr, 13.6 mls/hr Insulin Human Lispro (Humalog) 0 units SQ HS [facility]; Protocol Stop: 02/16/19 21:01 Last Admin: 08/18/18 20:35 Dose: Not Given Insulin Human Lispro (Humalog) 0 units SQ TIDAC [facility]; Protocol Stop: 02/16/19 11:31 Last Admin: 08/19/18 08:52 Dose: Not Given Isosorbide Mononitrate (Imdur) 60 mg PO DAILY [facility] Stop: 02/16/19 15:01 Last Admin: 08/19/18 08:53 Dose: 60 mg Magnesium Hydroxide (Milk Of Magnesia Conc) 10 ml PO DAILY PRN PRN Reason: Constipation Stop: 02/16/19 08:01 Metoprolol Tartrate (Lopressor) 12.5 mg PO BID [facility] Stop: 02/16/19 09:01 Last Admin: 08/19/18 08:53 Dose: 12.5 mg Naloxone HCl (Narcan) 0.4 mg IVP Q2M PRN PRN Reason: SEE COMMENTS Stop: 02/16/19 08:01 Ondansetron HCl (Zofran) 4 mg IVP Q8HR PRN PRN Reason: Nausea And Vomiting Stop: 02/16/19 08:01 Promethazine HCl (Phenergan) 12.5 mg PO Q6HR PRN PRN Reason: Nausea And Vomiting Stop: 02/16/19 08:01 Tramadol HCl (Ultram) 50 mg PO Q6HR PRN PRN Reason: Moderate Pain Stop: 02/16/19 08:01 Laboratory Tests 08/19/18 08/19/18 05:13 05:13 Hgb 14.4 Creatinine 0.93 - Imaging and Cardiology Chest Xray: report reviewed Echo: report reviewed Cardiac cath: report reviewed - EKG Interpretation EKG results cardiology: other (Telemetry reviewed with average HR previous 12 hours noted to be 71, SR. PVCs and PACs noted.) Consult Discharge Plan - Plan Referrals: Kendall Garcia DO [Primary Care Provider] - 08/24/18 1:00 pm (You will see Elly Blanco due to appointment availability)
[2018-08-19] MEDS: *HR* Heparin 5,000 UNIT/ML VIAL IVP PRN (15:33)
--- NOTE | 2018-08-19 16:18 | Internal Med Progress Note ---
Hospitalist Progress Note - Encounter Date of Encounter: 08/19/18 Time of Encounter: 16:14 - Subjective Interval History: His sodium was seen and examined at bedside currently denies any chest pain patient's evaluated by cardiothoracic surgery recommending open heart surgery which will be completed on Thursday. Patient will continue inpatient status on he khoa drip. Patient verbalized understanding - Exam Vitals: Temp Pulse Resp BP Pulse Ox 98.0 F 75 20 147/76 96 08/19/18 15:53 08/19/18 15:53 08/19/18 15:53 08/19/18 15:53 08/19/18 15:53 Exam: PHYSICAL EXAMINATION: GENERAL APPEARANCE: The patient is alert, oriented and in no acute distress. HEENT: Head is normocephalic. The sinuses are nontender. Pupils are equal and reactive. The nares are patent. Oropharynx clear without lesions. NECK: Supple without lymphadenopathy. HEART: Regular rate and rhythm. LUNGS: No crackles or wheezes are heard. ABDOMEN: Soft, nontender, nondistended with good bowel sounds heard. Inguinal area is normal. EXTREMITIES: Without cyanosis, clubbing or edema. NEUROLOGICAL: Gross nonfocal. SKIN: Warm and dry without any rash. - Assessment and Plan (1) Chest pain Current Visit: Yes Status: Acute Assessment and Plan: S/p recent NH and LHC 08/04/18 with no intervention medical management recommended. -C 08/04/18 35% prox LAD, 70% distal LAD, 90% prox circ, with left to left collaterals, 90% OM1, 100% prox RCA with Left to right collaterals. Medical management was recommended. -TTE with LVEF preserved, mild diastolic dysfunction, LV apical outpouching representing diverticulum, no wall motion abnormalities noted. -Presented with chest pain and seen by cardiology -EKG this admission wih no acute ST changes. -Troponin elevated at 0.05, 0.76, 0.57, 0.4. -CT surgery was consulted and recommend CABG. Plan for CABG Thursday to allow plavix wash out. (2) Diabetes Current Visit: No Status: Chronic Assessment and Plan: Hold metformin for now, started patient on insulin sliding scale. Accu-Cheks before meals at bedtime (3) HTN (hypertension) Current Visit: No Status: Chronic Assessment and Plan: BP controlled, continue home medications. (4) HLD (hyperlipidemia) Current Visit: No Status: Chronic Assessment and Plan: Continue home medications. (5) DVT prophylaxis Current Visit: No Status: Chronic Assessment and Plan: Heparin drip (6) NSTEMI (non-ST elevated myocardial infarction) Current Visit: No Status: Chronic Assessment and Plan: S/p recent NH and [facility] 08/04/18 with no intervention medical management recommended. -[facility] 08/04/18 35% prox LAD, 70% distal LAD, 90% prox circ, with left to left collaterals, 90% OM1, 100% prox RCA with Left to right collaterals. Medical management was recommended. -TTE with LVEF preserved, mild diastolic dysfunction, LV apical outpouching representing diverticulum, no wall motion abnormalities noted. -EKG this admission wih no acute ST changes. -Troponin elevated at 0.05, 0.76, 0.57, 0.4. -CT surgery was consulted and recommend CABG. Plan for CABG Thursday to allow plavix wash out. (7) COPD (chronic obstructive pulmonary disease) Current Visit: Yes Status: Acute Assessment and Plan: Respiratory status stable, continue home medications. Oxygen as needed - Time Spent with Patient Total time spent is greater than 50% in coordination of care (as documented) at patient's floor/unit and/or counseling patient: Internal Medicine: Result - Labs CBC & Chem 7: 08/19/18 05:13 08/19/18 05:13 Labs: Short CBC 08/19/18 Range/Units 05:13 WBC 8.4 (4.3-11.1) K/mcL Hgb 14.4 (12.9-16.9) g/dL Hct 42.5 (37.5-50.1) % Plt Count 305 (140-400) K/mcL Neutrophils # 5.0 (1.6-8.9) K/mcL BMP 08/19/18 05:13 Sodium 136 Potassium 3.8 Chloride 100 Carbon Dioxide 25 BUN 9 Creatinine 0.93 Glucose 130 H Calcium 9.6 - ABG Interpretation ABG results: PT/INR, D-dimer PT 11.3 Seconds (9.4-12.1) 08/17/18 14:14 Consult Discharge Plan - Plan Referrals: Kendall Garcia DO [Primary Care Provider] - 08/24/18 1:00 pm (You will see Elly Blanco due to appointment availability) __ (1) Chest pain Qualifiers: Chest pain type: chest pain due to myocardial ischemia Ischemic chest pain type: unspecified angina pectoris type Qualified Code(s): I25.9 - Chronic ischemic heart disease, unspecified (2) Diabetes Qualifiers: Diabetes mellitus type: type 2 Diabetes mellitus shelter insulin use: without coater slate use Diabetes mellitus complication status: with unspecified complications Qualified Code(s): E11.8 - Type 2 diabetes mellitus with unspecified complications (3) HTN (hypertension) Qualifiers: Hypertension type: essential hypertension Qualified Code(s): I10 - Essential (primary) hypertension (4) HLD (hyperlipidemia) Qualifiers: Hyperlipidemia type: pure hypercholesterolemia Qualified Code(s): E78.00 - Pure hypercholesterolemia, unspecified; E78.0 - Pure hypercholesterolemia (7) COPD (chronic obstructive pulmonary disease) Qualifiers: COPD type: unspecified COPD Qualified Code(s): J44.9 - Chronic obstructive pulmonary disease, unspecified
[2018-08-19] MEDS: Famotidine 20 MG TABLET PO SCH (20:34)
[2018-08-20] MEDS: Insulin LISPRO 300 UNITS/3 ML VIAL SQ SCH ×4 (07:35→21:39)
[2018-08-20] MEDS: Famotidine 20 MG TABLET PO SCH ×2 (09:10→21:39)
[2018-08-20] MEDS: Aspirin 81 MG TAB.CHEW PO SCH (09:10)
[2018-08-20] MEDS: Isosorbide MONOnitrate (24 HR) 60 MG TAB.ER.24H PO SCH (09:11)
[2018-08-20] MEDS: Lisinopril 20 MG TABLET PO SCH (09:11)
--- NOTE | 2018-08-20 09:42 | Cardiothoracic Progress Note ---
Date of Encounter: 08/20/18 Time of Encounter: 09:39 - Assessment and plan (1) NSTEMI (non-ST elevated myocardial infarction) Current Visit: No Status: Chronic The assessment and plan as outlined above was discussed with the patient and/or family members who expressed understanding and agreement. All questions were answered. I will check a carotid duplex as the patient states that he has had a prior stroke. He has been on Plavix and this has been stopped. He is presently on a heparin drip. Open heart surgery is scheduled for Thursday. Risks of surgery include , infection, stroke, myocardial infarction, clots around the heart, renal or respiratory failure, acute or chronic graft closure, phrenic nerve injury and sternal dehiscence. The procedure, its risks, benefits and alternatives were explained and he does wish to proceed. He has no questions. I will stop the heparin drip at 05 100 on Thursday - Subjective Interval history: The patient has had no angina. Vital Signs, Last 4 Hours Temp Pulse Resp BP Pulse Ox 08/20/18 07:49 98.4 F 88 17 145/85 94 Oxgyen Flow Rate Oxygen Flow Rate (LPM) 2 Weight 08/18/18 08/19/18 08/20/18 23:59 23:59 23:59 Weight 123.7 kg 122.8 kg Lungs are clear to percussion and auscultation. Heart is in a normal sinus rhythm. - Labs 08/19/18 05:13 08/19/18 05:13 Consult Discharge Plan - Plan Referrals: Kendall Garcia DO [Primary Care Provider] - 08/24/18 1:00 pm (You will see Elly Blanco due to appointment availability)
[2018-08-20] MEDS ORDERED: CeFAZolin Syr 3,000MG/30 ML 3,000 MG/30 ML SYRINGE IVPB ONE (09:43)
[2018-08-20 10:35] LABS: Chol/HDL Ratio 2.5 (0-4.9)
--- NOTE | 2018-08-20 11:03 | Anesthesia Evaluation PreOp ---
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: CVA Other Medical History: Diabetes Type II Anesthesia History: No Prior Anesthetic Complications, Past Anesthesia (bilateral TKA, cataracts) Alcohol Use: rarely Drug use: none Medications and Allergies Diltiazem HCl [Diltiazem 24Hr Cd] 240 mg PO DAILY 08/04/18 [History] Etodolac 400 mg PO BID 08/04/18 [History] Lisinopril [Zestril] 20 mg PO DAILY 08/04/18 [History] Metformin HCl 1,000 mg PO BID 08/04/18 [History] Ranitidine HCl [Acid Margin Trimmer] 150 mg PO BID 08/04/18 [History] Simvastatin [Zocor] 40 mg PO DAILY 08/04/18 [History] Tamsulosin [Flomax] 0.4 mg PO BID 08/04/18 [History] glipiZIDE [Glipizide] 10 mg PO DAILY 08/04/18 [History] Aspirin 81 mg PO DAILY 30 Days #30 tab.chew 08/05/18 [Rx] Clopidogrel [Plavix] 75 mg PO DAILY 30 Days #30 tablet 08/05/18 [Rx] Isosorbide MONOnitrate [Isosorbide Mononitrate ER] 30 mg PO DAILY 08/18/18 [History] Metoprolol [Lopressor] 25 mg PO DAILY 08/18/18 [History] Nitroglycerin 0.4 mg SL Q5M PRN 08/18/18 [History] Allergy/AdvReac Type Severity Reaction Status Date / Time No Known Allergies Allergy Verified 08/18/18 10:09 - Meds/Allergy Pre-op Review Medications Reviewed: Yes Allergies Reviewed: Yes Beta Blockers on Current Med List: Yes If Beta Blockers taken, Date/Time (Last Dose taken): today 517 Anesthesia Results - Labs 08/23/18 04:39 08/23/18 04:39 - Imaging Additional studies: Cath report: Procedures Performed: LEFT HEART CATH Indications: Non-Stemi Impressions: There is severe three vessel coronary artery disease. The left ventricle is normal and has normal contractility EF 55%. Diverticulum noted. There is good quality collateral vessel/vessels from the Mid LAD to the Circumflex that are visualized. There is good quality collateral vessel/vessels from the Distal LAD to the RCA that are visualized. Recommendations: Optimal medical therapy of patient's disease. Aggressive risk factor modification. LV Ventriculography Ejection Method: LV Gram Ejection Fraction: 50% Wall Motion: WOODRUFF Anterobasal Normal Anterolateral Normal Apical: Normal Inferoapical Akinesis Inferobasal Severe Hypokinesis Coronary Dominance: right Lesion Findings/Interventions * Left Main Coronary Artery The LMCA is angiographically free of disease. * Left Anterior Descending There is a 35% stenosis in the Proximal LAD. The lesion has a RAYNA flow of 3 and has severely calcification noted. There is a 70% stenosis in the Distal LAD. The lesion has a RAYNA flow of 3. * Circumflex There is a 90% stenosis in the Proximal Circumflex. The lesion has a RAYNA flow of 3 and has collaterals which feed from left to left. There is a 90% stenosis in the Mid Circumflex. The lesion has a RAYNA flow of 3. There is a 90% stenosis in the 1st Marginal. The lesion has a RAYNA flow of 3. * Right Coronary Artery There is a 100% stenosis in the Proximal RCA. The lesion has a RAYNA flow of 0 and has collaterals which feed from left to right. Echo: Impressions: LVEF 55-60%. Mild left ventricular diastolic dysfunction. Definity echo contrast was used. Small LV apical outpouching may represent diverticulum (reported on [facility] 08/04/2018). RV is not optimally visualized. Size and function grossly normal. No significant valvular dysfunction. No pulmonary hypertension. Anesthesia Exam Selected Entries 08/23/18 06:35 Temperature 97.8 F Pulse Rate 78 Respiratory Rate 19 Blood Pressure 146/73 O2 Sat by Pulse Oximetry 95 Oxygen Delivery Method Room Air Weight: 121kg BMI 37 NPO (# of Hours): 8 - HEENT Pupil (Motor): EOMI Mallampati: II Teeth: Missing Oral Opening: Greater than 3 - BIT SHAVER LOC: Oriented BIT SHAVER Motor: Normal RUE, Normal LUE, Normal RLE, Normal LLE, Normal Face BIT SHAVER Sensory: Normal: RUE, LUE, RLE, LLE, Face - Cardiac Rhythm: Regular Murmur: None - Pulmonary Breath Sounds: bilateral Clear Respiratory Effort: Symmetrical Anesthesia Assess/Plan ASA Score: 4 Level of consciousness: Cooperative, Oriented, Tranquil Anesthetic Plan: General Monitoring Plan: Standard Monitors, A-Line, PAC, MONIQUE Recovery Plan: ICU (agrees to GA, lines, MONIQUE and blood products)
[2018-08-20 11:12] LABS: Estimated Average Glucose 194 mg/dl; Hemoglobin A1C 8.4 %
[2018-08-20] MEDS: Heparin 25,000 UNIT/250 ML D5W 25,000 UNIT/250 ML IV.SOLN IVC SCH (13:24)
--- NOTE | 2018-08-20 16:23 | Internal Med Progress Note ---
Hospitalist Progress Note - Encounter Date of Encounter: 08/20/18 Time of Encounter: 16:23 - Subjective Interval History: She was seen and examined at bedside currently denies any chest pain or shortness of breath. He is scheduled to undergo CABG on Thursday. Cardiothoracic surgery recommending carotid duplex this patient does have a history of stroke in the past - Exam Vitals: Temp Pulse Resp BP Pulse Ox 98.0 F 103 19 119/76 96 08/20/18 10:50 08/20/18 10:50 08/20/18 10:50 08/20/18 10:50 08/20/18 10:50 Exam: PHYSICAL EXAMINATION: GENERAL APPEARANCE: The patient is alert, oriented and in no acute distress. HEENT: Head is normocephalic. The sinuses are nontender. Pupils are equal and reactive. The nares are patent. Oropharynx clear without lesions. NECK: Supple without lymphadenopathy. HEART: Regular rate and rhythm. LUNGS: No crackles or wheezes are heard. ABDOMEN: Soft, nontender, nondistended with good bowel sounds heard. Inguinal area is normal. EXTREMITIES: Without cyanosis, clubbing or edema. NEUROLOGICAL: Gross nonfocal. SKIN: Warm and dry without any rash. - Assessment and Plan (1) Chest pain Current Visit: Yes Status: Acute Assessment and Plan: S/p recent [place] and [facility] 08/04/18 with no intervention medical management recommended. -C 08/04/18 35% prox LAD, 70% distal LAD, 90% prox circ, with left to left col laterals, 90% OM1, 100% prox RCA with Left to right collaterals. Medical management was recommended. -TTE with LVEF preserved, mild diastolic dysfunction, LV apical outpouching representing diverticulum, no wall motion abnormalities noted. -Presented with chest pain and seen by cardiology -EKG this admission wih no acute ST changes. -Troponin elevated at 0.05, 0.76, 0.57, 0.4. -CT surgery was consulted and recommend CABG. Plan for CABG Thursday to allow plavix wash out. -Carotid duplex history of CVA (2) Diabetes Current Visit: No Status: Chronic Assessment and Plan: Hold metformin for now, started patient on insulin sliding scale. Accu-Cheks before meals at bedtime (3) HTN (hypertension) Current Visit: No Status: Chronic Assessment and Plan: BP controlled, continue home medications. (4) HLD (hyperlipidemia) Current Visit: No Status: Chronic Assessment and Plan: Continue home medications. (5) DVT prophylaxis Current Visit: No Status: Chronic Assessment and Plan: Heparin drip (6) NSTEMI (non-ST elevated myocardial infarction) Current Visit: No Status: Chronic Assessment and Plan: S/p recent [place] and [facility] 08/04/18 with no intervention medical management recommended. -[facility] 08/04/18 35% prox LAD, 70% distal LAD, 90% prox circ, with left to left collaterals, 90% OM1, 100% prox RCA with Left to right collaterals. Medical management was recommended. -TTE with LVEF preserved, mild diastolic dysfunction, LV apical outpouching representing diverticulum, no wall motion abnormalities noted. -EKG this admission wih no acute ST changes. -Troponin elevated at 0.05, 0.76, 0.57, 0.4. -CT surgery was consulted and recommend CABG. Plan for CABG Thursday to allow plavix wash out. (7) COPD (chronic obstructive pulmonary disease) Current Visit: Yes Status: Acute Assessment and Plan: Respiratory status stable, continue home medications. Oxygen as needed - Time Spent with Patient Total time spent is greater than 50% in coordination of care (as documented) at patient's floor/unit and/or counseling patient: Internal Medicine: Result - Labs CBC & Chem 7: 08/19/18 05:13 08/19/18 05:13 - ABG Interpretation ABG results: PT/INR, D-dimer PT 11.3 Seconds (9.4-12.1) 08/17/18 14:14 Consult Discharge Plan - Plan Referrals: Kendall Garcia DO [Primary Care Provider] - 08/24/18 1:00 pm (You will see Elly Blanco due to appointment availability) (1) Chest pain Qualifiers: Chest pain type: chest pain due to myocardial ischemia Ischemic chest pain type: unspecified angina pectoris type Qualified Code(s): I25.9 - Chronic ischemic heart disease, unspecified (2) Diabetes Qualifiers: Diabetes mellitus type: type 2 Diabetes mellitus fdc insulin use: without intermediate manager use Diabetes mellitus complication status: with unspecified complications Qualified Code(s): E11.8 - Type 2 diabetes mellitus with unspecified complications (3) HTN (hypertension) Qualifiers: Hypertension type: essential hypertension Qualified Code(s): I10 - Essential (primary) hypertension (4) HLD (hyperlipidemia) Qualifiers: Hyperlipidemia type: pure hypercholesterolemia Qualified Code(s): E78.00 - Pure hypercholesterolemia, unspecified; E78.0 - Pure hypercholesterolemia (7) COPD (chronic obstructive pulmonary disease) Qualifiers: COPD type: unspecified COPD Qualified Code(s): J44.9 - Chronic obstructive pulmonary disease, unspecified
[2018-08-20] MEDS: Chlorhexidine Rinse 15 ML MOUTHWASH MM SCH (23:29)
[2018-08-21] MEDS: Heparin 25,000 UNIT/250 ML D5W 25,000 UNIT/250 ML IV.SOLN IVC SCH ×3 (04:10→20:17)
[2018-08-21] MEDS: Insulin LISPRO 300 UNITS/3 ML VIAL SQ SCH ×4 (08:02→21:17)
[2018-08-21] MEDS: Isosorbide MONOnitrate (24 HR) 60 MG TAB.ER.24H PO SCH (10:15)
[2018-08-21] MEDS: Famotidine 20 MG TABLET PO SCH ×2 (10:16→21:17)
[2018-08-21] MEDS: Aspirin 81 MG TAB.CHEW PO SCH (10:16)
[2018-08-21] MEDS: Lisinopril 20 MG TABLET PO SCH (10:17)
--- NOTE | 2018-08-21 12:02 | Internal Med Progress Note ---
Hospitalist Progress Note - Encounter Date of Encounter: 08/21/18 Time of Encounter: 12:02 - Subjective Interval History: Patient was seen and examined at bedside currently denies any chest pain he is awaiting CABG scheduled for Thursday continue to hold Plavix for Plavix washout - Exam Vitals: Temp Pulse Resp BP Pulse Ox 97.5 F L 76 14 114/72 96 08/21/18 06:31 08/21/18 06:31 08/21/18 06:31 08/21/18 06:31 08/21/18 06:31 Exam: PHYSICAL EXAMINATION: GENERAL APPEARANCE: The patient is alert, oriented and in no acute distress. HEENT: Head is normocephalic. The sinuses are nontender. Pupils are equal and reactive. The nares are patent. Oropharynx clear without lesions. NECK: Supple without lymphadenopathy. HEART: Regular rate and rhythm. LUNGS: No crackles or wheezes are heard. ABDOMEN: Soft, nontender, nondistended with good bowel sounds heard. Inguinal area is normal. EXTREMITIES: Without cyanosis, clubbing or edema. NEUROLOGICAL: Gross nonfocal. SKIN: Warm and dry without any rash. - Assessment and Plan (1) Chest pain Current Visit: Yes Status: Acute Assessment and Plan: S/p recent [place] and [facility] 08/04/18 with no intervention medical management recommended. -[facility] 08/04/18 35% prox LAD, 70% distal LAD, 90% prox circ, with left to left collaterals, 90% OM1, 100% prox RCA with Left to right collaterals. Medical management was recommended. -TTE with LVEF preserved, mild diastolic dysfunction, LV apical outpouching representing diverticulum, no wall motion abnormalities noted. -Presented with chest pain and seen by cardiology -EKG this admission wih no acute ST changes. -Troponin elevated at 0.05, 0.76, 0.57, 0.4. -CT surgery was consulted and recommend CABG. Plan for CABG Thursday to allow plavix wash out. -Carotid duplex history of CVA (2) Diabetes Current Visit: No Status: Chronic Assessment and Plan: Hold metformin for now, started patient on insulin sliding scale. Accu-Cheks before meals at bedtime (3) HTN (hypertension) Current Visit: No Status: Chronic Assessment and Plan: BP controlled, continue home medications. (4) HLD (hyperlipidemia) Current Visit: No Status: Chronic Assessment and Plan: Continue home medications. (5) DVT prophylaxis Current Visit: No Status: Chronic Assessment and Plan: Heparin drip (6) NSTEMI (non-ST elevated myocardial infarction) Current Visit: No Status: Chronic Assessment and Plan: S/p recent [place] and [facility] 08/04/18 with no intervention medical management recommended. -[facility] 08/04/18 35% prox LAD, 70% distal LAD, 90% prox circ, with left to left collaterals, 90% OM1, 100% prox RCA with Left to right collaterals. Medical management was recommended. -TTE with LVEF preserved, mild diastolic dysfunction, LV apical outpouching representing diverticulum, no wall motion abnormalities noted. -EKG this admission wih no acute ST changes. -Troponin elevated at 0.05, 0.76, 0.57, 0.4. -CT surgery was consulted and recommend CABG. Plan for CABG Thursday to allow plavix wash out. (7) COPD (chronic obstructive pulmonary disease) Current Visit: Yes Status: Acute Assessment and Plan: Respiratory status stable, continue home medications. Oxygen as needed - Time Spent with Patient Total time spent is greater than 50% in coordination of care (as documented) at patient's floor/unit and/or counseling patient: Internal Medicine: Result - Labs CBC & Chem 7: 08/19/18 05:13 08/19/18 05:13 - ABG Interpretation ABG results: PT/INR, D-dimer PT 11.3 Seconds (9.4-12.1) 08/17/18 14:14 Consult Discharge Plan - Plan Referrals: Kendall Garcia DO [Primary Care Provider] - 08/24/18 1:00 pm (You will see Elly Blanco due to appointment availability) (1) Chest pain Qualifiers: Chest pain type: chest pain due to myocardial ischemia Ischemic chest pain type: unspecified angina pectoris type Qualified Code(s): I25.9 - Chronic ischemic heart disease, unspecified (2) Diabetes Qualifiers: Diabetes mellitus type: type 2 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: without ad terminal makeup operator use Diabetes mellitus complication status: with unspecified complications Qualified Code(s): E11.8 - Type 2 diabetes mellitus with unspecified complications (3) HTN (hypertension) Qualifiers: Hypertension type: essential hypertension Qualified Code(s): I10 - Essential (primary) hypertension (4) HLD (hyperlipidemia) Qualifiers: Hyperlipidemia type: pure hypercholesterolemia Qualified Code(s): E78.00 - Pure hypercholesterolemia, unspecified; E78.0 - Pure hypercholesterolemia (7) COPD (chronic obstructive pulmonary disease) Qualifiers: COPD type: unspecified COPD Qualified Code(s): J44.9 - Chronic obstructive pulmonary disease, unspecified
[2018-08-21] MEDS: Chlorhexidine Rinse 15 ML MOUTHWASH MM SCH (20:06)
[2018-08-22] MEDS: *HR* Heparin 5,000 UNIT/ML VIAL IVP PRN ×2 (06:57→16:36)
[2018-08-22] MEDS: Nitroglycerin 0.4 MG TAB.SUBL SL PRN ×4 (09:32→21:16)
[2018-08-22] MEDS: Lisinopril 20 MG TABLET PO SCH (09:35)
[2018-08-22] MEDS: Isosorbide MONOnitrate (24 HR) 60 MG TAB.ER.24H PO SCH (09:35)
[2018-08-22] MEDS: Famotidine 20 MG TABLET PO SCH ×2 (09:35→21:26)
[2018-08-22] MEDS: Aspirin 81 MG TAB.CHEW PO SCH (09:41)
[2018-08-22] MEDS: Insulin LISPRO 300 UNITS/3 ML VIAL SQ SCH ×4 (09:42→21:25)
--- NOTE | 2018-08-22 09:47 | Cardiothoracic Progress Note ---
Date of Encounter: 08/22/18 Time of Encounter: 09:45 - Assessment and plan (1) NSTEMI (non-ST elevated myocardial infarction) Current Visit: No Status: Chronic The assessment and plan as outlined above was discussed with the patient and/or family members who expressed understanding and agreement. All questions were answered. surgery scheduled for tomorrow. - Subjective Interval history: remains chest pain free yesterday and today Vital Signs, Last 4 Hours Temp Pulse Resp BP Pulse Ox 08/22/18 07:08 98.0 F 73 13 115/77 97 Oxgyen Flow Rate Oxygen Flow Rate (LPM) 2 Clinical Data, last 8 Hours Output, Urine Amount 550 Output, Urine Amount 200 Weight 08/20/18 08/21/18 08/22/18 23:59 23:59 23:59 Weight 122.8 kg 124.738 kg 122.8 kg - Physical Examination General: Conversant, No Apparent Distress, Well developed, Well nourished HEENT: Atraumatic, Normocephaly Neuro: Alert and responsive, No focal deficits noted, Cranial nerves intact, Motor nerves intact Musculoskeletal: Other (ambulated with patient in the henry 5/5mm strength ) Extremities: No Clubbing, No Cyanosis, No Edema - Labs 08/19/18 05:13 08/19/18 05:13 Consult Discharge Plan - Plan Referrals: Kendall Garcia DO [Primary Care Provider] - 08/24/18 1:00 pm (You will see Elly Blanco due to appointment availability)
[2018-08-22 11:38] LABS: Basophils % 0.4 %; Eosinophils # 0.1 K/mcL (0.0-0.6); Eosinophils % 1.2 %; Hematocrit 41.3 % (37.5-50.1); Hemoglobin 14.2 g/dL (12.9-16.9); Immature Granulocytes % 0.6 % (0-4); Lymphocytes # 1.7 K/mcL (0.6-4.6); Lymphocytes % 17.9 %; Mean Corpuscular HGB Conc 34.4 g/dL (31.6-35.5); Mean Corpuscular Hemoglobin 30.1 pg (28.0-33.3); Mean Corpuscular Volume 87.5 fL (83.0-100.0); Mean Platelet Volume 9.3 fL (9.4-12.4); Monocytes # 0.8 K/mcL (0.0-1.3); Monocytes % 8.1 %; Neutrophils # 6.7 K/mcL (1.6-8.9); Platelet Count 266 K/mcL (140-400); Red Blood Count 4.72 M/mcL (4.19-5.50); Red Cell Distribution Width 12.5 % (11.5-14.5); Segmented Neutrophils % 71.8 %
[2018-08-22 11:57] LABS: BUN/Creatinine Ratio 10 (6-26); Blood Urea Nitrogen 11 mg/dL (8-23); Calcium 9.8 mg/dL (8.6-10.3); Carbon Dioxide 26 mEq/L (23-29); Chloride 100 mEq/L (98-107); Glucose 230 mg/dL (70-105); Osmolality,Calculated 283 (280-300); Sodium 133 mEq/L (136-145); eGFR For Non-African Americans > 60 (> 60)
[2018-08-22] MEDS: Heparin 25,000 UNIT/250 ML D5W 25,000 UNIT/250 ML IV.SOLN IVC SCH (14:04)
--- NOTE | 2018-08-22 15:09 | Internal Med Progress Note ---
Hospitalist Progress Note - Encounter Date of Encounter: 08/22/18 Time of Encounter: 15:06 - Subjective Interval History: Patient seen and examined at bedside-he did have some chest pain this morning which was relieved with nitroglycerin. He is to undergo a CABG in the a.m.- patient will be nothing by mouth after midnight - Exam Vitals: Temp Pulse Resp BP Pulse Ox 97.5 F L 75 14 99/58 96 08/22/18 12:43 08/22/18 12:43 08/22/18 12:43 08/22/18 12:43 08/22/18 12:43 Exam: PHYSICAL EXAMINATION: GENERAL APPEARANCE: The patient is alert, oriented and in no acute distress. HEENT: Head is normocephalic. The sinuses are nontender. Pupils are equal and reactive. The nares are patent. Oropharynx clear without lesions. NECK: Supple without lymphadenopathy. HEART: Regular rate and rhythm. LUNGS: No crackles or wheezes are heard. ABDOMEN: Soft, nontender, nondistended with good bowel sounds heard. Inguinal area is normal. EXTREMITIES: Without cyanosis, clubbing or edema. NEUROLOGICAL: Gross nonfocal. SKIN: Warm and dry without any rash. - Assessment and Plan (1) Chest pain Current Visit: Yes Status: Acute Assessment and Plan: S/p recent [place] and [facility] 08/04/18 with no intervention medical management recommended. -C 08/04/18 35% prox LAD, 70% distal LAD, 90% prox circ, with left to left collaterals, 90% OM1, 100% prox RCA with Left to right collaterals. Medical management was recommended. -TTE with LVEF preserved, mild diastolic dysfunction, LV apical outpouching representing diverticulum, no wall motion abnormalities noted. -Presented with chest pain and seen by cardiology -EKG this admission wih no acute ST changes. -Troponin elevated at 0.05, 0.76, 0.57, 0.4. -CT surgery was consulted and recommend CABG. Plan for CABG Thursday05/25/2018 to allow plavix wash out. Patient will be nothing by mouth after midnight-heparin drip will be stopped at 5 AM per cardiothoracic recommendations (2) Diabetes Current Visit: No Status: Chronic Assessment and Plan: Hold metformin for now, started patient on insulin sliding scale. Accu-Cheks before meals at bedtime (3) HTN (hypertension) Current Visit: No Status: Chronic Assessment and Plan: BP controlled, continue home medications. (4) HLD (hyperlipidemia) Current Visit: No Status: Chronic Assessment and Plan: Continue home medications. (5) DVT prophylaxis Current Visit: No Status: Chronic Assessment and Plan: Heparin drip (6) NSTEMI (non-ST elevated myocardial infarction) Current Visit: No Status: Chronic Assessment and Plan: S/p recent [place] and [facility] 08/04/18 with no intervention medical management recommended. -C 08/04/18 35% prox LAD, 70% distal LAD, 90% prox circ, with left to left col laterals, 90% OM1, 100% prox RCA with Left to right collaterals. Medical management was recommended. -TTE with LVEF preserved, mild diastolic dysfunction, LV apical outpouching representing diverticulum, no wall motion abnormalities noted. -EKG this admission wih no acute ST changes. -Troponin elevated at 0.05, 0.76, 0.57, 0.4. -CT surgery was consulted and recommend CABG. Plan for CABG Thursday to allow plavix wash out. (7) COPD (chronic obstructive pulmonary disease) Current Visit: Yes Status: Acute Assessment and Plan: Respiratory status stable, continue home medications. Oxygen as needed - Time Spent with Patient Total time spent is greater than 50% in coordination of care (as documented) at patient's floor/unit and/or counseling patient: Internal Medicine: Result - Labs CBC & Chem 7: 08/22/18 11:29 08/22/18 11:29 Labs: Short CBC 08/22/18 Range/Units 11:29 WBC 9.4 (4.3-11.1) K/mcL Hgb 14.2 (12.9-16.9) g/dL Hct 41.3 (37.5-50.1) % Plt Count 266 (140-400) K/mcL Neutrophils # 6.7 (1.6-8.9) K/mcL BMP 08/22/18 11:29 Sodium 133 L Potassium 4.0 Chloride 100 Carbon Dioxide 26 BUN 11 Creatinine 1.14 Glucose 230 H Calcium 9.8 - ABG Interpretation ABG results: PT/INR, D-dimer PT 11.3 Seconds (9.4-12.1) 08/17/18 14:14 Consult Discharge Plan - Plan Referrals: Kendall Garcia DO [Primary Care Provider] - 08/24/18 1:00 pm (You will see Elly Blanco due to appointment availability) (1) Chest pain Qualifiers: Chest pain type: chest pain due to myocardial ischemia Ischemic chest pain type: unspecified angina pectoris type Qualified Code(s): I25.9 - Chronic ischemic heart disease, unspecified (2) Diabetes Qualifiers: Diabetes mellitus type: type 2 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 insulin use: without half-way use Diabetes mellitus complication status: with unspecified complications Qualified Code(s): E11.8 - Type 2 diabetes mellitus with unspecified complications (3) HTN (hypertension) Qualifiers: Hypertension type: essential hypertension Qualified Code(s): I10 - Essential (primary) hypertension (4) HLD (hyperlipidemia) Qualifiers: Hyperlipidemia type: pure hypercholesterolemia Qualified Code(s): E78.00 - Pure hypercholesterolemia, unspecified; E78.0 - Pure hypercholesterolemia (7) COPD (chronic obstructive pulmonary disease) Qualifiers: COPD type: unspecified COPD Qualified Code(s): J44.9 - Chronic obstructive pulmonary disease, unspecified
[2018-08-22] MEDS: Chlorhexidine Rinse 15 ML MOUTHWASH MM SCH (21:25)
[2018-08-23] MEDS: Heparin 25,000 UNIT/250 ML D5W 25,000 UNIT/250 ML IV.SOLN IVC SCH (00:31)
[2018-08-23 05:30] LABS: Basophils # 0.1 K/mcL (0.0-0.2); Basophils % 0.7 %; Eosinophils # 0.3 K/mcL (0.0-0.6); Eosinophils % 2.8 %; Hematocrit 39.7 % (37.5-50.1); Hemoglobin 13.5 g/dL (12.9-16.9); Immature Granulocytes % 0.7 % (0-4); Mean Corpuscular Hemoglobin 29.9 pg (28.0-33.3); Mean Corpuscular Volume 87.8 fL (83.0-100.0); Mean Platelet Volume 9.5 fL (9.4-12.4); Monocytes # 0.9 K/mcL (0.0-1.3); Monocytes % 9.8 %; Neutrophils # 4.8 K/mcL (1.6-8.9); Platelet Count 283 K/mcL (140-400); Red Blood Count 4.52 M/mcL (4.19-5.50); Red Cell Distribution Width 12.9 % (11.5-14.5)
[2018-08-23 05:49] LABS: BUN/Creatinine Ratio 11 (6-26); Blood Urea Nitrogen 10 mg/dL (8-23); Calcium 9.6 mg/dL (8.6-10.3); Carbon Dioxide 25 mEq/L (23-29); Chloride 101 mEq/L (98-107); Glucose 186 mg/dL (70-105); Osmolality,Calculated 280 (280-300); Potassium 4.2 mEq/L (3.5-5.1); Sodium 133 mEq/L (136-145); eGFR For Non-African Americans > 60 (> 60)
[2018-08-23] MEDS ORDERED: Aspirin 81 MG TAB.CHEW PO ONE (06:00)
[2018-08-23] MEDS ORDERED: NiCARdipine 2.5 MG/10 ML Syringe IVPB ONE (06:18)
[2018-08-23] MEDS ORDERED: Nitroglycerin 25 MG/250 ML INFUS..BTL IVC ONE (06:18)
[2018-08-23] MEDS ORDERED: *HR* PHENYLEPHRINE 1,000 MCG/10 ML SYRINGE IVP ONE ×2 (06:26→09:58)
[2018-08-23] MEDS ORDERED: *HR* Rocuronium Bromide 50 MG/5 ML VIAL ONE (06:26)
[2018-08-23] MEDS ORDERED: *HR* Etomidate 20 MG/10 ML AMPUL IVP ONE (06:27)
[2018-08-23] MEDS ORDERED: Famotidine 20 MG/2 ML VIAL ONE (06:27)
[2018-08-23] MEDS ORDERED: *HR* Midazolam HCl 5 MG/5 ML VIAL IVP ONE (06:33)
[2018-08-23] MEDS ORDERED: *HR* FentaNYL (PF) 1,000 MCG/20 ML VIAL ONE (06:33)
[2018-08-23] MEDS ORDERED: Verapamil 5 MG/2 ML VIAL ONE (06:41)
[2018-08-23] MEDS ORDERED: CeFAZolin Syr 3,000MG/30 ML 3,000 MG/30 ML SYRINGE IVPB ONE (07:00)
--- NOTE | 2018-08-23 08:06 | Event Note ---
Date of Encounter: 08/23/18 Time of Encounter: 08:04 Patient was taken to preop for CABG prior to my arrival to floor. He will be transferred over to the care of cardiothoracic postoperatively
[2018-08-23] MEDS ORDERED: Heparin 15,000 UNIT in 0.9 % Sodium Chloride 500 ML IV ONE (08:15)
[2018-08-23] MEDS ORDERED: Norepinephrine 4 MG in D5% in Water 250 ML IVC PRN (08:15)
[2018-08-23] MEDS ORDERED: Dextrose 50 % in Water (Vial) 30 ML, Sodium Bicarbonate 20 MEQ, Potassium Chloride 15 M... TH ONE (08:15)
[2018-08-23] MEDS ORDERED: Dextrose 50 % in Water (Vial) 30 ML, Sodium Bicarbonate 20 MEQ, Lidocaine 1% 5 ML, Insu... TH ONE ×3 (08:15)
[2018-08-23] MEDS ORDERED: Insulin Human Regular 100 UNIT in 0.9 % Sodium Chloride 100 ML IV PRN (08:15)
[2018-08-23 08:31] LABS: ABG Base Excess -1 mEq/L (-2 to 3); ABG Chloride 102 mEq/L (98-107); ABG Glucose 210 mg/dL (60-95); ABG HCO3 27 mEq/L (21-27); ABG Ionized Calcium 1.25 mmol/L (1.15-1.35); ABG Oxygen Saturation 100 % (95-98); ABG PCO2 54 mmHg (35-45); ABG PO2 390 mmHg (85-104); ABG TCO2 28 mEq/L (20-26)
[2018-08-23] MEDS ORDERED: Tranexamic Acid 1,000 MG/10 ML VIAL ONE (09:13)
[2018-08-23 09:54] LABS: ABG Base Excess -2 mEq/L (-2 to 3); ABG Chloride 102 mEq/L (98-107); ABG Glucose 223 mg/dL (60-95); ABG HCO3 23 mEq/L (21-27); ABG Ionized Calcium 1.22 mmol/L (1.15-1.35); ABG Oxygen Saturation 100 % (95-98); ABG PCO2 39 mmHg (35-45); ABG PH 7.38 pH Units (7.32-7.45); ABG PO2 174 mmHg (85-104); ABG TCO2 24 mEq/L (20-26)
--- NOTE | 2018-08-23 10:11 | Anesthesia Procedures ---
Date of Encounter: 08/23/18 Time of Encounter: 08:15 Procedures: Anesthesia - Arterial Line Consent obtained: verbal consent Time out performed: Yes Sedation: Versed (mg): 2 Sedation: Fentanyl (mcg): 100 Supplemental Oxygen via Nasal Cannula (L/min): 2 Local Anesthetic: Lidocaine 1% Amount of Anesthetic used (mls): 1 Size (Gauge): 20 Length (inches): 5 Technique Used: sterile prep, guide wire technique, direct puncture technique Post-Procedure: line taped into place, dry sterile dressing placed Patient tolerated procedure: well, no complications Complications: none Site: Radial L - Central Line Placement Right IJ Consent obtained: written consent Time out performed: Yes Patient placed on monitor/pulse ox: Yes prep: mask, gown, gloves Central line prep: Chlorhexidine scrub Ultrasound used for placement: Yes Technique: Seldinger Lumen Inserted: Introducer Post procedure: sutured in place, good blood return, all ports aspirated, flushed, capped, sterile dressing applied Patient tolerated procedure: well, no complications Complications: none Comments: introducer placed easily, swan placed without arrythmia, wedge approx 55cm
[2018-08-23 10:28] LABS: ABG Base Excess -1 mEq/L (-2 to 3); ABG Chloride 102 mEq/L (98-107); ABG Glucose 249 mg/dL (60-95); ABG HCO3 23 mEq/L (21-27); ABG Ionized Calcium 1.07 mmol/L (1.15-1.35); ABG Oxygen Saturation 100 % (95-98); ABG PCO2 38 mmHg (35-45); ABG PO2 348 mmHg (85-104); ABG TCO2 25 mEq/L (20-26)
[2018-08-23 10:59] LABS: ABG Base Excess -2 mEq/L (-2 to 3); ABG Chloride 96 mEq/L (98-107); ABG Glucose 237 mg/dL (60-95); ABG HCO3 23 mEq/L (21-27); ABG Ionized Calcium 1.09 mmol/L (1.15-1.35); ABG Oxygen Saturation 100 % (95-98); ABG PCO2 40 mmHg (35-45); ABG PH 7.36 pH Units (7.32-7.45); ABG PO2 173 mmHg (85-104); ABG TCO2 24 mEq/L (20-26)
[2018-08-23 11:34] LABS: ABG Base Excess -3 mEq/L (-2 to 3); ABG Chloride 103 mEq/L (98-107); ABG Glucose 198 mg/dL (60-95); ABG HCO3 22 mEq/L (21-27); ABG Ionized Calcium 1.29 mmol/L (1.15-1.35); ABG Oxygen Saturation 98 % (95-98); ABG PCO2 35 mmHg (35-45); ABG PO2 99 mmHg (85-104); ABG TCO2 23 mEq/L (20-26)
[2018-08-23] MEDS ORDERED: Potassium Chloride 40 MEQ/200 ML BAG IVPB PRN (11:46)
[2018-08-23] MEDS ORDERED: Insulin Regular, Human 100 UNIT/ML IV PRN (11:46)
[2018-08-23] MEDS ORDERED: *HR* Promethazine 25 MG/ML VIAL IVP PRN (11:46)
[2018-08-23] MEDS ORDERED: *HR* Dextrose 50 % in Water (Syg) 50 ML SYRINGE IVP PRN (11:46)
[2018-08-23] MEDS ORDERED: niCARdipine 40 MG/200 ML MLS IVC SCH (12:00)
[2018-08-23] MEDS ORDERED: Norepinephrine 4 MG in D5% in Water 250 ML IVC SCH (12:00)
[2018-08-23 12:14] LABS: ABG Base Excess 0 mEq/L (-2 to 3); ABG HCO3 26 mEq/L (21-27); ABG Oxygen Saturation 98 % (95-98); ABG PCO2 48 mmHg (35-45); ABG PH 7.34 pH Units (7.32-7.45); ABG PO2 120 mmHg (85-104); ABG TCO2 27 mEq/L (20-26)
[2018-08-23 12:25] LABS: Basophils # 0.1 K/mcL (0.0-0.2); Basophils % 0.3 %; Eosinophils # 0.3 K/mcL (0.0-0.6); Eosinophils % 1.8 %; Hematocrit 34.7 % (37.5-50.1); Immature Granulocytes % 0.8 % (0-4); Lymphocytes % 12.9 %; Mean Corpuscular HGB Conc 34.6 g/dL (31.6-35.5); Mean Corpuscular Hemoglobin 30.2 pg (28.0-33.3); Mean Corpuscular Volume 87.4 fL (83.0-100.0); Monocytes # 1.2 K/mcL (0.0-1.3); Monocytes % 6.1 %; Neutrophils # 14.8 K/mcL (1.6-8.9); Platelet Count 156 K/mcL (140-400); Red Blood Count 3.97 M/mcL (4.19-5.50); Red Cell Distribution Width 12.7 % (11.5-14.5); Segmented Neutrophils % 78.1 %
[2018-08-23] MEDS ORDERED: niCARdipine 40 MG/200 ML MLS IVC ONE (12:25)
[2018-08-23 12:26] LABS: Lymphocytes # 2.4 K/mcL (0.6-4.6)
[2018-08-23] MEDS: *HR* FentaNYL (PF) 100 MCG/2 ML VIAL IVP PRN ×3 (12:40→17:07)
[2018-08-23 12:42] LABS: BUN/Creatinine Ratio 9 (6-26); Blood Urea Nitrogen 8 mg/dL (8-23); Calcium 9.5 mg/dL (8.6-10.3); Carbon Dioxide 26 mEq/L (23-29); Chloride 103 mEq/L (98-107); Glucose 182 mg/dL (70-105); Magnesium 2.5 mg/dL (1.6-2.6); Osmolality,Calculated 283 (280-300); Potassium 3.8 mEq/L (3.5-5.1); Sodium 135 mEq/L (136-145); eGFR For Non-African Americans > 60 (> 60)
[2018-08-23 12:43] LABS: INR 1.4; Prothrombin Time 15.3 Seconds (9.4-12.1)
[2018-08-23 12:46] LABS: Activated Partial Thrombo Time 33.7 Seconds (26.0-36.0)
[2018-08-23] MEDS: 0.9 % Sodium Chloride 1,000 ML IVC SCH (13:00)
[2018-08-23] MEDS: ceFAZolin 3,000 MG in 0.9 % Sodium Chloride 100 ML IVPB SCH ×2 (13:00→23:10)
[2018-08-23] MEDS: Insulin Human Regular 100 UNIT in 0.9 % Sodium Chloride 100 ML IVC SCH (13:00)
[2018-08-23] MEDS ORDERED: *HR* LORazepam 2 MG/ML VIAL ONE (13:12)
[2018-08-23] MEDS ORDERED: *HR* Metoprolol 5 MG/5 ML VIAL IVP ONE (13:13)
[2018-08-23] MEDS ORDERED: *HR* Metoprolol 5 MG/5 ML VIAL IVP SCH (13:15)
[2018-08-23] MEDS ORDERED: *HR* Metoprolol 5 MG/5 ML VIAL IVP PRN (14:21)
--- NOTE | 2018-08-23 14:37 | Operative Note ---
Date of procedure: 08/23/18 Pre-op diagnosis: Coronary artery disease Post-op diagnosis: same Procedure: Coronary artery bypass grafting 2 with the left internal mammary artery to the LAD and the aorta to obtuse marginal branch #2 of the circumflex with saphenous vein. Also, excision of chest wall mass. Anesthesia: GETA Surgeon: Clarke Carmona Was there an production assistant present: Yes [employer] Roustabout: Raleigh Alfredo Estimated blood loss (cc): 500 Specimen: chest wall mass Condition: stable Disposition: ICU Procedure in Detail: The patient is a 67-year-old gentleman who underwent cardiac catheterization which revealed severe coronary artery disease. He had had stents in the past and was on Plavix, which was stopped preoperatively. Carotid duplex revealed bilateral 60-79% internal carotid artery lesions which were asymptomatic. No recent strokes or TIAs. He was brought to the operating room where he was prepped and draped in standard fashion. The right greater saphenous vein was harvested from the knee to the groin. This was done through 2 small incisions using a scope. These incisions were closed using a 2-0 Vicryl subcutaneous stitch and a 3-0 Vicryl subcuticular stitch. A standard median sternotomy was performed. The left internal mammary artery retractor was inserted in the left internal mammary artery was harvested in standard fashion using the Bovie electrocoagulation. The mammary retractor was removed and the standard sternal enterprise systems engineer was inserted. Pericardium was opened in the midline and suspended with 2-0 silk stay sutures. A double pursestring of 20 Surgilon was placed in the aorta for the aortic cannulation site. A pursestring of 20 Surgilon was placed in the right atrial appendage for the venous uptake. The patient was heparinized. The aorta was cannulated without difficulty. 2 stage venous uptake cannula was inserted through the right atrial appendage. A pursestring of 3-0 silk was placed in the aorta and the cardioplegia needle was inserted through here. This was also used is an active and passive aortic vent. The patient was placed on cardial pony bypass and cooled to 35.1 degrees. At this point the aorta was crossclamped and a liter of antegrade cardioplegia was given. Topical cooling with iced saline slush was also used. Attention was turned to the right coronary artery. The main right coronary artery and posterior descending branches were too small and diffusely diseased for grafting . Attention was turned to the circumflex. Obtuse marginal branch #1 was too small and diffusely diseased for grafting. Obtuse marginal branch #2 was dissected free with a [place] blade and opened with a [place] blade and the Wong scissors. This did have a lumen of 1-1/2 mm with moderate plaquing throughout. A standard end to side anastomosis was constructed using the saphenous vein and a 7-0 Prolene. When this is completed, the patient received an additional dose of antegrade cardioplegia. The LAD was dissected free with the [place] blade and found to have diffuse disease in its distal third. It was opened with the [place] blade and the Wong scissors. It had a lumen of 1-1-1/2 mm with diffuse disease. A standard end to side anastomosis was constructed using the mammary artery and a 7-0 Prolene. When this is completed, the previously placed bulldog clamp was removed and the hemostasis was good. We did place 2 sutures of 5-0 silk to tack the pedicle to the heart. We also placed some FloSeal and fibrillar around the FERRO distal anastomosis. Cross-clamp was removed and rewarming was begun. Total cross-clamp time was 27 minutes. A side-biting clamp was placed on the aorta and the cardioplegia needle was removed. A hole was made in the aorta using the [place] blade and the 4.0 mm aortic punch. A standard end-to-side anastomosis was constructed using the saphenous vein and a 5-0 Prolene. When this is completed, the side-biting clamp was removed. The graft was de-aired using a 25-gauge needle and the previously placed bulldog clamp was removed. Distal anastomoses were inspected and found to be hemostatic. Proximal anastomosis was marked with a marker from [employer]. A pair of ventricular pacing wires was left. A 32 right angle chest tube to the left pleural space. A 32 right angle chest tube to the pericardial well. A 32 right angle chest tube to the right pleural space. A 42 mediastinal chest tube. The patient was weaned from bypass and decannulated. Protamine was given. Hemostasis was good and the hemodynamics were good. Pericardium was left open. Sternum was closed with #7 sternal wires in simple and [id number] fashion. We did use platelet rich and platelet poor plasma to the sternum and tissues above the sternum. Fascia was closed with a #1 Vicryl. Subcutaneous tissues with a 2-0 Vicryl. Skin was closed with a 3-0 Vicryl subcuticular stitch. The patient tolerated the procedure well and was returned to intensive care unit in satisfactory and stable condition. Total bypass time 59 minutes. Total cross- clamp time 27 minutes. He was cooled to 35.1 degrees. it should be noted that when we entered the chest there was a mass in the subcutaneous tissues on the lower part of his sternum which appeared to be a lipoma. This was excised using the Bovie electrocoagulation and sent for permanent pathology.
[2018-08-23 15:31] LABS: ABG Base Excess -3 mEq/L (-2 to 3); ABG HCO3 24 mEq/L (21-27); ABG Oxygen Saturation 90 % (95-98); ABG PCO2 49 mmHg (35-45); ABG PO2 65 mmHg (85-104); ABG TCO2 26 mEq/L (20-26); Blood Gas Modality CPAP/PS; Blood Gas PEEP 5 cm H2O; Blood Gas Pressure Support 8 cm H2O
[2018-08-23 16:32] LABS: ABG Base Excess -2 mEq/L (-2 to 3); ABG HCO3 24 mEq/L (21-27); ABG Oxygen Saturation 97 % (95-98); ABG PCO2 43 mmHg (35-45); ABG PH 7.35 pH Units (7.32-7.45); ABG PO2 94 mmHg (85-104); ABG TCO2 25 mEq/L (20-26)
--- NOTE | 2018-08-23 16:50 | Electrocardiograph Report ---
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
[2018-08-23] MEDS: Isosorbide MONOnitrate (24 HR) 60 MG TAB.ER.24H PO SCH (17:18)
[2018-08-23] MEDS: Famotidine 20 MG TABLET PO SCH ×2 (17:18→21:04)
[2018-08-23] MEDS: Aspirin 81 MG TAB.CHEW PO SCH (17:18)
[2018-08-23] MEDS: Chlorhexidine Rinse 15 ML MOUTHWASH MM SCH (17:18)
[2018-08-23] MEDS: Lisinopril 20 MG TABLET PO SCH (17:18)
[2018-08-23] MEDS: Nitroglycerin 25 MG/250 ML INFUS..BTL IVC SCH ×2 (17:29→19:00)
[2018-08-23] MEDS ORDERED: Chlorhexidine Rinse 15 ML MOUTHWASH MM SCH (21:00)
[2018-08-23] MEDS: *HR* LORazepam 2 MG/ML VIAL IVP SCH (21:03)
[2018-08-23] MEDS: *HR* OxyCODONE/APAP 5/325 TABLET PO PRN (21:03)
[2018-08-24] MEDS: *HR* FentaNYL (PF) 100 MCG/2 ML VIAL IVP PRN ×4 (00:10→06:10)
[2018-08-24] MEDS: Nitroglycerin 25 MG/250 ML INFUS..BTL IVC SCH (01:19)
[2018-08-24] MEDS: *HR* OxyCODONE/APAP 5/325 TABLET PO PRN (01:23)
[2018-08-24] MEDS: *HR* LORazepam 2 MG/ML VIAL IVP SCH (01:23)
[2018-08-24] MEDS: Insulin Human Regular 100 UNIT in 0.9 % Sodium Chloride 100 ML IVC SCH (02:05)
[2018-08-24 03:50] LABS: Basophils % 0.1 %; Hematocrit 34.5 % (37.5-50.1); Hemoglobin 11.8 g/dL (12.9-16.9); Immature Granulocytes % 0.5 % (0-4); Lymphocytes # 0.8 K/mcL (0.6-4.6); Lymphocytes % 5.6 %; Mean Corpuscular HGB Conc 34.2 g/dL (31.6-35.5); Mean Corpuscular Hemoglobin 30.3 pg (28.0-33.3); Mean Corpuscular Volume 88.7 fL (83.0-100.0); Mean Platelet Volume 9.4 fL (9.4-12.4); Monocytes # 1.7 K/mcL (0.0-1.3); Monocytes % 11.6 %; Platelet Count 147 K/mcL (140-400); Red Blood Count 3.89 M/mcL (4.19-5.50); Red Cell Distribution Width 13.2 % (11.5-14.5); Segmented Neutrophils % 82.2 %
[2018-08-24 03:58] LABS: INR 1.2; Prothrombin Time 13.8 Seconds (9.4-12.1)
[2018-08-24 04:01] LABS: Activated Partial Thrombo Time 35.3 Seconds (26.0-36.0)
[2018-08-24 04:08] LABS: BUN/Creatinine Ratio 12 (6-26); Blood Urea Nitrogen 11 mg/dL (8-23); Calcium 8.9 mg/dL (8.6-10.3); Carbon Dioxide 24 mEq/L (23-29); Chloride 105 mEq/L (98-107); Glucose 187 mg/dL (70-105); Magnesium 1.9 mg/dL (1.6-2.6); Osmolality,Calculated 286 (280-300); Potassium 4.6 mEq/L (3.5-5.1); Sodium 136 mEq/L (136-145); eGFR For Non-African Americans > 60 (> 60)
[2018-08-24] MEDS: 0.9 % Sodium Chloride 1,000 ML IVC SCH (06:55)
[2018-08-24] MEDS ORDERED: Furosemide 20 MG/2 ML VIAL IVP ONE ×2 (07:57→08:55)
--- NOTE | 2018-08-24 08:03 | Cardiothoracic Progress Note ---
Date of Encounter: 08/24/18 Time of Encounter: 08:01 - Assessment and plan (1) NSTEMI (non-ST elevated myocardial infarction) Current Visit: No Status: Chronic I will add Toradol for pain control. We will discontinue his IV fluids, Alton- Cory catheter, arterial line and Gary. We will write transfer orders to the floor. - Subjective Interval history: The patient is extubated and has moderate postoperative pain. Vital Signs, Last 4 Hours Temp Pulse Resp BP Pulse Ox 08/24/18 07:45 93 08/24/18 07:32 12 153/59 95 08/24/18 06:00 99.7 F H 100 16 139/56 95 08/24/18 05:00 99.7 F H 94 16 138/56 95 08/24/18 04:02 16 95 Oxgyen Flow Rate Oxygen Flow Rate (LPM) 4 Clinical Data, last 8 Hours Output, Chest Tube Drainage 0 Amount [Mediastinal #1] Output, Chest Tube Drainage 0 Amount [Mediastinal #1] Output, Chest Tube Drainage 0 Amount [Mediastinal #1] Output, Chest Tube Drainage 0 Amount [Mediastinal #1] Output, Chest Tube Drainage 0 Amount [Mediastinal #1] Output, Chest Tube Drainage 0 Amount [Mediastinal #1] Output, Chest Tube Drainage 0 Amount [Mediastinal #2] Output, Chest Tube Drainage 0 Amount [Mediastinal #2] Output, Chest Tube Drainage 0 Amount [Mediastinal #2] Output, Chest Tube Drainage 0 Amount [Mediastinal #2] Output, Chest Tube Drainage 10 Amount [Mediastinal #2] Output, Chest Tube Drainage 0 Amount [Mediastinal #2] Output, Chest Tube Drainage 0 Amount [Mediastinal #3] Output, Chest Tube Drainage 20 Amount [Mediastinal #3] Output, Chest Tube Drainage 60 Amount [Mediastinal #3] Output, Chest Tube Drainage 0 Amount [Mediastinal #3] Output, Chest Tube Drainage 0 Amount [Mediastinal #3] Output, Chest Tube Drainage 0 Amount [Mediastinal #3] Output, Chest Tube Drainage 0 Amount [Mediastinal #4] Output, Chest Tube Drainage 0 Amount [Mediastinal #4] Output, Chest Tube Drainage 0 Amount [Mediastinal #4] Output, Chest Tube Drainage 0 Amount [Mediastinal #4] Output, Chest Tube Drainage 0 Amount [Mediastinal #4] Output, Chest Tube Drainage 0 Amount [Mediastinal #4] Weight 08/22/18 08/23/18 08/24/18 23:59 23:59 23:59 Weight 122.8 kg 121 kg 121 kg Lungs have scattered wheezes. Heart is in a normal sinus rhythm. All incisions are healing well without signs of infection and the sternum is stable. Chest tube drainage is minimal and there is no air leak. The chest tubes and pacing wires were removed. - Labs 08/24/18 03:34 08/24/18 03:34 Lab Results, Last 24 hours 08/23/18 08/23/18 08/23/18 Unknown Unknown Unknown WBC 18.9 H D Hgb 12.0 L D Hct 34.7 L Plt Count 156 INR 1.4 APTT 33.7 Sodium 135 L Potassium 3.8 Chloride 103 Carbon Dioxide 26 BUN 8 Creatinine 0.90 Glucose 182 H Calcium 9.5 Magnesium 2.5 08/24/18 08/24/18 08/24/18 03:34 03:34 03:34 WBC 14.5 H Hgb 11.8 L Hct 34.5 L Plt Count 147 INR 1.2 APTT 35.3 Sodium 136 Potassium 4.6 Chloride 105 Carbon Dioxide 24 BUN 11 Creatinine 0.95 Glucose 187 H Calcium 8.9 Magnesium 1.9 Consult Discharge Plan - Plan Referrals: Kendall Garcia DO [Primary Care Provider] - 08/24/18 1:00 pm (You will see Elly Blanco due to appointment availability)
[2018-08-24] MEDS ORDERED: Nitroglycerin 0.4 MG TAB.SUBL SL PRN (08:55)
[2018-08-24] MEDS ORDERED: Naloxone 0.4 MG/ML INJ IVP PRN (08:55)
[2018-08-24] MEDS ORDERED: *HR* FentaNYL (PF) 100 MCG/2 ML VIAL IVP PRN (08:55)
[2018-08-24] MEDS ORDERED: *HR* Promethazine 25 MG/ML VIAL IVP PRN (08:55)
[2018-08-24] MEDS ORDERED: Ondansetron 4 MG/2 ML VIAL IVP PRN (08:55)
[2018-08-24] MEDS ORDERED: Acetaminophen 325 MG TABLET PO PRN (08:55)
[2018-08-24] MEDS ORDERED: MOM Conc 10 ML UD.LIQ PO PRN (08:55)
[2018-08-24] MEDS ORDERED: D5% in Water 1,000 ML IVC PRN (08:55)
[2018-08-24] MEDS ORDERED: Dextrose Gel 15 GM/37.5 ML TUBE PO PRN ×2 (08:55)
[2018-08-24] MEDS ORDERED: Mag Hydrox/Al Hydrox/Simeth 30 ML UDC PO PRN (08:55)
[2018-08-24] MEDS ORDERED: traMADol 50 MG TABLET PO PRN (08:55)
[2018-08-24] MEDS ORDERED: *HR* Dextrose 50 % in Water (Syg) 50 ML SYRINGE IVP PRN (08:55)
[2018-08-24] MEDS ORDERED: Isosorbide MONOnitrate (24 HR) 60 MG TAB.ER.24H PO SCH (09:00)
[2018-08-24] MEDS ORDERED: Pantoprazole 40 MG VIAL IVP SCH (09:00)
[2018-08-24] MEDS ORDERED: Lisinopril 20 MG TABLET PO SCH (09:00)
[2018-08-24] MEDS ORDERED: *HR* Magnesium Sulfate 2 GM/50 ML PIGGYBACK IVPB ONE (09:35)
[2018-08-24] MEDS ORDERED: Lidocaine 2% Syringe 100 MG/5 ML IV ONE (09:35)
[2018-08-24] MEDS ORDERED: Sodium Bicarbonate 50 MEQ/50 ML VIAL IVC ONE (09:35)
[2018-08-24] MEDS ORDERED: *HR* Phenylephrine 10 MG/ML VIAL IVC ONE (09:35)
[2018-08-24] MEDS ORDERED: *HR* Heparin 10,000 UNIT/10 ML VIAL IV ONE (09:35)
[2018-08-24] MEDS ORDERED: Mannitol 25% vial 12.5 GM/50 ML VIAL IVP ONE (09:35)
[2018-08-24] MEDS ORDERED: Tranexamic Acid 1,000 MG/10 ML VIAL IVPB ONE (09:35)
[2018-08-24] MEDS ORDERED: Albumin Human 25% 25 GM/100 ML IV.SOLN IV ONE (09:35)
[2018-08-24] MEDS ORDERED: Ketorolac 15 MG/ML VIAL IVP SCH (12:00)
[2018-08-24] MEDS: Insulin LISPRO 300 UNITS/3 ML VIAL SQ SCH ×3 (12:57→19:56)
[2018-08-24] MEDS: Ketorolac 15 MG/ML VIAL IVP SCH ×2 (12:59→17:38)
[2018-08-24] MEDS: Chlorhexidine Rinse 15 ML MOUTHWASH MM SCH ×2 (14:08→19:55)
[2018-08-24] MEDS: Famotidine 20 MG TABLET PO SCH ×2 (14:09→19:54)
[2018-08-24] MEDS: Pantoprazole 40 MG VIAL IVP SCH (15:21)
[2018-08-24] MEDS: Aspirin 81 MG TAB.CHEW PO SCH (15:22)
[2018-08-24] MEDS: *HR* Heparin 5,000 UNIT/ML VIAL SQ SCH (17:38)
[2018-08-25] MEDS: Ketorolac 15 MG/ML VIAL IVP SCH ×4 (00:37→17:18)
[2018-08-25] MEDS: *HR* Heparin 5,000 UNIT/ML VIAL SQ SCH ×2 (05:22→17:19)
--- NOTE | 2018-08-25 07:24 | Cardiothoracic Progress Note ---
Date of Encounter: 08/25/18 Time of Encounter: 07:22 - Assessment and plan (1) NSTEMI (non-ST elevated myocardial infarction) Current Visit: No Status: Chronic We will start to ambulate the patient. I will add low-dose Lasix. - Subjective Interval history: The patient is tolerating his diet. He was able to urinate after his Gary catheter was removed. Vital Signs, Last 4 Hours Temp Pulse Resp BP Pulse Ox 08/25/18 05:15 80 08/25/18 03:54 97.7 F 86 20 94/51 98 08/25/18 03:37 16 98 Oxgyen Flow Rate Oxygen Flow Rate (LPM) 4.5 Clinical Data, last 8 Hours Output, Urine Amount 50 Output, Urine Amount 150 Weight 08/23/18 08/24/18 08/25/18 23:59 23:59 23:59 Weight 121 kg 121.8 kg 125.1 kg Lungs are clear to percussion and auscultation. Heart is in a normal sinus rhythm. All incisions are healing well without signs of infection and the sternum is stable. - Labs 08/24/18 03:34 08/24/18 03:34 Consult Discharge Plan - Plan Referrals: Elly Rubio CNP [Advanced Practice Nurse] - 09/03/18 9:30 am (Dr. Garcia is out of the office is the reason you are seeing Ramiro) Phoebe Bui CNP [Advanced Practice Nurse] - (sent web request on 08-24-18 @ [phone]) Clarke Carmona MD [Partnered Physician] - (Per Anila in Dr. Shaffer office they will call the patient at home with follow up appointment)
[2018-08-25] MEDS: Aspirin 81 MG TAB.CHEW PO SCH (08:22)
[2018-08-25] MEDS: Pantoprazole 40 MG VIAL IVP SCH (08:22)
[2018-08-25] MEDS: Chlorhexidine Rinse 15 ML MOUTHWASH MM SCH ×2 (08:22→21:14)
[2018-08-25] MEDS: Famotidine 20 MG TABLET PO SCH ×2 (08:23→21:14)
[2018-08-25] MEDS: Insulin LISPRO 300 UNITS/3 ML VIAL SQ SCH ×4 (08:25→21:15)
--- NOTE | 2018-08-25 08:57 | Anesthesia Evaluation Post Op ---
Date of Encounter: 08/25/18 Time of Encounter: 06:30 - Vital Signs Vital Signs: Selected Entries 08/25/18 03:54 08/25/18 05:15 Pulse Rate 80 Blood Pressure 94/51 O2 Sat by Pulse Oximetry 98 Oxygen Flow Rate (LPM) 2 - Lungs Lungs: Clear Ascult./Percussion - Airway Airway: Non-obstructed - Cardiovascular Regular Rate - Mental Status Mental Status: Alert & Oriented, Answers Appropriately - Pain Pain Scale: 3 Pain Scale used: Numeric (1 - 10) - Nausea Vomiting Nausea Vomiting: Not Present - Hydration Hydration: Tolerates oral liquids, Able to void (POD #2 s/p CABG, doing well, no apparent anesthesia issues)
[2018-08-25] MEDS ORDERED: Furosemide 20 MG/2 ML VIAL IVP SCH (09:00)
[2018-08-25] MEDS: *HR* OxyCODONE/APAP 5/325 TABLET PO PRN ×2 (11:38→21:13)
[2018-08-26] MEDS: Ketorolac 15 MG/ML VIAL IVP SCH ×5 (00:47→23:28)
[2018-08-26] MEDS: *HR* Heparin 5,000 UNIT/ML VIAL SQ SCH ×2 (05:06→17:17)
[2018-08-26 06:44] LABS: Basophils % 0.2 %; Eosinophils # 0.3 K/mcL (0.0-0.6); Eosinophils % 3.2 %; Hematocrit 30.5 % (37.5-50.1); Hemoglobin 10.4 g/dL (12.9-16.9); Immature Granulocytes % 0.6 % (0-4); Lymphocytes # 1.3 K/mcL (0.6-4.6); Lymphocytes % 12.4 %; Mean Corpuscular HGB Conc 34.1 g/dL (31.6-35.5); Mean Corpuscular Hemoglobin 30.1 pg (28.0-33.3); Mean Corpuscular Volume 88.2 fL (83.0-100.0); Mean Platelet Volume 9.8 fL (9.4-12.4); Monocytes % 9.2 %; Neutrophils # 7.7 K/mcL (1.6-8.9); Platelet Count 130 K/mcL (140-400); Red Blood Count 3.46 M/mcL (4.19-5.50); Red Cell Distribution Width 13.1 % (11.5-14.5); Segmented Neutrophils % 74.4 %
[2018-08-26 07:03] LABS: BUN/Creatinine Ratio 23 (6-26); Blood Urea Nitrogen 19 mg/dL (8-23); Calcium 8.9 mg/dL (8.6-10.3); Carbon Dioxide 25 mEq/L (23-29); Chloride 97 mEq/L (98-107); Glucose 171 mg/dL (70-105); Osmolality,Calculated 272 (280-300); Potassium 3.8 mEq/L (3.5-5.1); Sodium 128 mEq/L (136-145); eGFR For Non-African Americans > 60 (> 60)
--- NOTE | 2018-08-26 07:18 | Cardiothoracic Progress Note ---
Date of Encounter: 08/26/18 Time of Encounter: 07:16 - Assessment and plan (1) NSTEMI (non-ST elevated myocardial infarction) Current Visit: No Status: Chronic We will plan to discharge the patient tomorrow. - Subjective Interval history: The patient is tolerating his diet and ambulating. He has no complaints. Vital Signs, Last 4 Hours Temp Pulse Resp BP Pulse Ox 08/26/18 04:22 97.9 F 83 18 120/87 95 08/26/18 03:39 16 94 Oxgyen Flow Rate Oxygen Flow Rate (LPM) 2 Clinical Data, last 8 Hours Output, Urine Amount 0 Output, Urine Amount 200 Output, Urine Amount 0 Weight 08/24/18 08/25/18 08/26/18 23:59 23:59 23:59 Weight 121.8 kg 125.1 kg Lungs are clear to percussion and auscultation. Heart is in a normal sinus r hythm. All incisions are healing well without signs of infection and the sternum is stable. - Labs 08/26/18 06:14 08/26/18 06:14 Lab Results, Last 24 hours 08/26/18 08/26/18 06:14 06:14 WBC 10.3 Hgb 10.4 L Hct 30.5 L Plt Count 130 L Sodium 128 L Potassium 3.8 Chloride 97 L Carbon Dioxide 25 BUN 19 Creatinine 0.83 Glucose 171 H Calcium 8.9 - VTE Documentation of Mechanical Device: Graduated compression elastic hosiery Consult Discharge Plan - Plan Referrals: Elly Rubio CNP [Advanced Practice Nurse] - 09/03/18 9:30 am (Dr. Garcia is out of the office is the reason you are seeing Ramiro) Phoebe Bui CNP [Advanced Practice Nurse] - (sent web request on 08-24-18 @ [phone]) Clarke Carmona MD [Partnered Physician] - 09/23/18 1:00 pm ()
[2018-08-26] MEDS: Insulin LISPRO 300 UNITS/3 ML VIAL SQ SCH ×4 (08:57→21:31)
[2018-08-26] MEDS: Famotidine 20 MG TABLET PO SCH ×2 (08:58→19:29)
[2018-08-26] MEDS: Chlorhexidine Rinse 15 ML MOUTHWASH MM SCH ×2 (08:58→19:30)
[2018-08-26] MEDS: Aspirin 81 MG TAB.CHEW PO SCH (08:58)
[2018-08-26] MEDS: Pantoprazole 40 MG VIAL IVP SCH (08:58)
[2018-08-26] MEDS: *HR* OxyCODONE/APAP 5/325 TABLET PO PRN ×2 (14:43→19:30)
[2018-08-27 00:31] LABS: BUN/Creatinine Ratio 21 (6-26); Blood Urea Nitrogen 18 mg/dL (8-23); Calcium 8.7 mg/dL (8.6-10.3); Carbon Dioxide 27 mEq/L (23-29); Chloride 98 mEq/L (98-107); Glucose 124 mg/dL (70-105); Osmolality,Calculated 273 (280-300); Potassium 3.7 mEq/L (3.5-5.1); Sodium 130 mEq/L (136-145); eGFR For Non-African Americans > 60 (> 60)
[2018-08-27 00:40] LABS: Basophils % 0.4 %; Eosinophils # 0.5 K/mcL (0.0-0.6); Eosinophils % 4.9 %; Hematocrit 28.8 % (37.5-50.1); Hemoglobin 9.9 g/dL (12.9-16.9); Immature Granulocytes % 0.6 % (0-4); Lymphocytes % 20.8 %; Mean Corpuscular HGB Conc 34.4 g/dL (31.6-35.5); Mean Corpuscular Hemoglobin 29.9 pg (28.0-33.3); Mean Platelet Volume 9.8 fL (9.4-12.4); Monocytes % 10.5 %; Neutrophils # 6.1 K/mcL (1.6-8.9); Platelet Count 173 K/mcL (140-400); Red Blood Count 3.31 M/mcL (4.19-5.50); Red Cell Distribution Width 12.9 % (11.5-14.5); Segmented Neutrophils % 62.8 %
[2018-08-27] MEDS: Ketorolac 15 MG/ML VIAL IVP SCH (05:56)
[2018-08-27] MEDS: *HR* Heparin 5,000 UNIT/ML VIAL SQ SCH (05:56)
[2018-08-27] MEDS: *HR* OxyCODONE/APAP 5/325 TABLET PO PRN (05:56)
[2018-08-27 07:47] VITALS: BP 133/76
[2018-08-27] MEDS: Pantoprazole 40 MG VIAL IVP SCH (07:59)
[2018-08-27] MEDS: Insulin LISPRO 300 UNITS/3 ML VIAL SQ SCH (07:59)
[2018-08-27] MEDS: Chlorhexidine Rinse 15 ML MOUTHWASH MM SCH (07:59)
[2018-08-27] MEDS: Famotidine 20 MG TABLET PO SCH (07:59)
[2018-08-27] MEDS: Aspirin 81 MG TAB.CHEW PO SCH (07:59)
--- NOTE | 2018-08-27 09:40 | Discharge Summary ---
Orders not resulted at time of discharge: Pending orders 08/20/18 10:04 Red Blood Cells [BBK] Routine Type and Screen [BBK] Routine Date of Encounter: 08/27/18 Time of Encounter: 09:33 - Discharge Diagnosis (1) NSTEMI (non-ST elevated myocardial infarction) Priority: Primary Status: Chronic - Hospital Course Hospital course: Mr. Rogers is a 67 year old male The patient is a 67-year-old gentleman who has a history of diabetes, hypertension and hypercholesterolemia. He presented with elevated troponin and a non-ST elevation myocardial infarction. Cardiac catheterization revealed severe coronary artery disease and he was referred for surgery. He had been on Plavix and this was stopped. On 08/23/2018, I took the patient to the operating room for wearing artery bypass grafting 2, utilizing the left internal mammary artery. Also, we excised a chest wall mass. This was present over the lower end of the sternum. Pathology returned with a lipoma. On 08/24/2018, the chest tubes and pacing wires were removed. The patient was transferred to the floor. Patient otherwise did well with discharge on August 27. At that time he was afebrile. Lungs were clear to percussion and auscultation. Heart was in a normal sinus rhythm. All incisions were healing well without signs of infection and the sternum was stable. Discharge medications are on the med rec can include narcotics for pain. I did check the [place] automated Rx reporting system. The patient was postoperative and was given a one-week supply. Appropriate precautions were given. He was to return to his previous and regular diet. He was to avoid heavy lifting for a total of 3 months after surgery, but to walk as much as possible. He was to avoid driving for 1 month. He was to follow up and see me in the office in 4 weeks as directed. He was to follow-up with his primary care doctor and basin operator as directed. He was to call sooner for any difficulties. - Time Spent with Patient Total time spent providing and/or coordinating discharge services: - Discharge Medications Prescriptions: New OxyCODONE/APAP 5/325 [Percocet 5/325 MG] 1 each PO Q4HR PRN 7 Days #20 tablet PRN Reason: Severe Pain Metoprolol [Lopressor] 50 mg PO BID #60 tablet Continue Tamsulosin [Flomax] 0.4 mg PO BID Simvastatin [Zocor] 40 mg PO DAILY Ranitidine HCl [Acid Display And Banner Designer] 150 mg PO BID Metformin HCl 1,000 mg PO BID Lisinopril [Zestril] 20 mg PO DAILY glipiZIDE [Glipizide] 10 mg PO DAILY Etodolac 400 mg PO BID Diltiazem HCl [Diltiazem 24Hr Cd] 240 mg PO DAILY Aspirin 81 mg PO DAILY 30 Days #30 tab.chew Clopidogrel [Plavix] 75 mg PO DAILY 30 Days #30 tablet Nitroglycerin 0.4 mg SL Q5M PRN PRN Reason: Chest Pain Isosorbide MONOnitrate [Isosorbide Mononitrate ER] 30 mg PO DAILY Discontinued Metoprolol [Lopressor] 25 mg PO DAILY Home Medications: Diltiazem HCl [Diltiazem 24Hr Cd] 240 mg PO DAILY 08/04/18 [History] Etodolac 400 mg PO BID 08/04/18 [History] Lisinopril [Zestril] 20 mg PO DAILY 08/04/18 [History] Metformin HCl 1,000 mg PO BID 08/04/18 [History] Ranitidine HCl [Acid Display And Banner Designer] 150 mg PO BID 08/04/18 [History] Simvastatin [Zocor] 40 mg PO DAILY 08/04/18 [History] Tamsulosin [Flomax] 0.4 mg PO BID 08/04/18 [History] glipiZIDE [Glipizide] 10 mg PO DAILY 08/04/18 [History] Aspirin 81 mg PO DAILY 30 Days #30 tab.chew 08/05/18 [Rx] Clopidogrel [Plavix] 75 mg PO DAILY 30 Days #30 tablet 08/05/18 [Rx] Isosorbide MONOnitrate [Isosorbide Mononitrate ER] 30 mg PO DAILY 08/18/18 [History] Nitroglycerin 0.4 mg SL Q5M PRN 08/18/18 [History] Metoprolol [Lopressor] 50 mg PO BID #60 tablet 08/27/18 [Rx] OxyCODONE/APAP 5/325 [Percocet 5/325 MG] 1 each PO Q4HR PRN 7 Days #20 tablet 08/27/18 [Rx] Allergies/Adverse Reactions: Allergy/AdvReac Type Severity Reaction Status Date / Time No Known Allergies Allergy Verified 08/18/18 10:09 Date of admission: 08/18/18 15:37 Primary care physician: Kendall Garcia DO Consults: 08/17/18 14:16 Consult to Cardiology [CONS] Routine Comment: Consulting Provider: Cardiology Shereen Reason for Consult: NSTEMI Call Completed: Yes 08/18/18 14:18 Consult to Cardiothoracic Surgery [CONS] Routine Consulting Provider: Cardiothoracic Surgery Shereen Reason for Consult: NSTEMI, Known severe CAD Call Completed: Yes 08/23/18 11:47 Consult to Cardiac Rehabilitation-Phase1 [CONS] Routine Comment: Reason for Consult: Post open heart Call Completed: Yes Consult to Infantry Indirect Fire Crewmember [CONS] Routine Reason for SW Consult: open heart 08/24/18 08:55 Consult for Pharmacy Education [CONS] Routine Reason for Consult: Post-Op Heart Call Completed: Yes Consult to Occupational Therapy [CONS] Routine Comment: Evaluate, develop and implement POC Reason for Consult: Post-Op Heart Does patient have active BEDREST order?: No Is patient medically & hemodynamically stable?: Yes Consult to Physical Therapy [CONS] Routine Comment: Evaluate, develop and implement POC Reason for Consult: Post open heart Does patient have active BEDREST order?: No Is patient medically & hemodynamically stable?: Yes Procedure(s) Performed: 08/23/2018. Coronary artery bypass grafting 2, utilizing the left internal mammary artery. Also, excision of chest wall mass. Discharging clinician: Clarke Carmona Anticipated date of discharge: 08/27/18 Physical Examination Vital Signs, Last 4 Hours Temp Pulse Resp BP Pulse Ox 08/27/18 08:13 74 08/27/18 07:41 98.1 F 72 20 133/76 97 08/27/18 07:39 18 96 - Patient Status Disposition: Home, Self-Care Condition: Fair Functional capacity at discharge: independent ambulation Overall status at discharge: patient is progressing back to baseline - Discharge Instructions Follow Up With: Elly Rubio CNP [Advanced Practice Nurse] - 09/03/18 9:30 am (Dr. Garcia is out of the office is the reason you are seeing Ramiro) Phoebe Bui CNP [Advanced Practice Nurse] - (sent web request on 08-24-18 @ [phone]) Clarke Carmona MD [Partnered Physician] - 09/23/18 1:00 pm () Open Heart Registry Aspirin Cont/Prescribed at DC: Yes Beta Mekhi Cont/Prescribed at DC: Yes Statin Cont/Prescribed at DC: Yes ELBERT/ARB Cont/Prescribed at DC: Yes - VTE Documentation of Mechanical Device: Graduated compression elastic hosiery
== END 2018-08-27 10:34 | disposition home or self-care (01) | DRG 236 ==
LOC: EMEROOARM 22:58 → 3BNU 22:58 → SUATTDRO 08-18 15:37 → ICNU 08-23 08:21 → 2NNU 08-24 13:50
PROVIDERS: ADMIT Pediatrics; ATTEND Thoracic Surgery (Cardiothoracic Vascular Surgery)

== ENCOUNTER 2018-10-24 03:34 | Observation (INO) ==
[2018-10-24] MEDS ORDERED: Aspirin 81 MG TAB.CHEW PO ONE (03:53)
--- NOTE | 2018-10-24 04:09 | Emergency Department Note ---
Disposition Clinical Impression: Chest pain, CAD (coronary artery disease), Hyponatremia, Unstable angina pectoris, ACS (acute coronary syndrome) Disposition: Admitted As Inpatient Condition: Fair Time of Disposition: 06:45 Chest Pain HPI - General Chief Complaint: ED Chest Pain Stated Complaint: Chest Pain Time Seen by Provider: 10/24/18 03:37 Source: patient Mode of arrival: ambulatory Limitations: no limitations Vital Signs Reviewed: Yes Nursing Notes Reviewed: Yes - History of Present Illness HPI Narrative: 67-year-old male presents to the emergency department with chest pain. Patient had CABG done in August 2018 as well as left heart catheterization done 3 days ago due to having chest pain. He also had an upper endoscopy that did show gastric ulcers 2 days ago. He was discharged from the hospital 2 days ago after the upper endoscopy to follow-up. Patient said was discharged he was still having chest pain was not near as bad. He did have worsening chest pain yesterd ay did take one nitroglycerin and it went away. He said he is short of breath whenever he does have an chest pain. Today at 1:30 this morning he had chest pain said it was on his left side nonradiating describing it as 6 out 10 pressure said it felt the same as when he needed a CABG. He did take one nitroglycerin it is slightly lower at said then started get nauseous is accustomed come the emergency room. Did take one more nitroglycerin glycerin when he arrived here in the chest pain then went away when he arrived here to the emergency department. He is no longer having chest pain was due to him taking nitroglycerin. Patient again was nauseous but did not have any vomiting. Patient otherwise has no other complaints at this time. Severity scale (1-10): 5 - Related Data Home Medications Medication Instructions Recorded Confirmed Diltiazem HCl [Diltiazem 24Hr Cd] 240 mg PO DAILY 08/04/18 10/24/18 Lisinopril [Zestril] 20 mg PO DAILY 08/04/18 10/24/18 Metformin HCl 1,000 mg PO BID 08/04/18 10/24/18 Tamsulosin [Flomax] 0.4 mg PO BID 08/04/18 10/24/18 glipiZIDE [Glipizide] 10 mg PO DAILY 08/04/18 10/24/18 Nitroglycerin 0.4 mg SL Q5M PRN 08/18/18 10/24/18 Aspirin [Lo-Dose Aspirin EC] 81 mg PO DAILY 10/19/18 10/24/18 Previous Rx's Medication Instructions Recorded Metoprolol [Lopressor] 50 mg PO BID #60 tablet 08/27/18 Atorvastatin Calcium [Lipitor] 80 mg PO HS #30 tab 10/21/18 Clopidogrel [Plavix] 75 mg PO HS #0 10/21/18 Isosorbide MONOnitrate (24 HR) 90 mg PO DAILY #90 tab.er.24h 10/21/18 [Imdur] Pantoprazole Sodium [Protonix] 40 mg PO DAILY #30 tablet.dr 10/21/18 Ranolazine [Ranexa] 1,000 mg PO BID #120 tab.er.12h 10/21/18 Allergies Allergy/AdvReac Type Severity Reaction Status Date / Time No Known Allergies Allergy Verified 10/24/18 16:07 All systems ED: reviewed and negative except as stated. Review of Systems: As Per HPI Chest Pain PMH - Past Medical History Medical history: Reports: coronary artery disease, CVA, diabetes, hypertension, myocardial infarction, peripheral artery disease, other Surgical history: Reports: knee replacement (Left total knee replacement, right total knee replacement), other (Left cataract excision with intraocular lens implantation, right cataract excision with intraocular lens implantation) Psychiatric history: Reports: no psych history - Social History Smoking Status: Former smoker Alcohol use: Reports: occasionally Drug use: Reports: none Physical Exam - General Limitations: no limitations General appearance: alert - Head Head exam: atraumatic, normocephalic, normal inspection - Eye Eye exam: Present: normal appearance, PERRL, EOMI - ENT ENT exam: normal exam, normal oropharynx, mucous membranes moist - Neck Neck exam: Present: normal inspection, full ROM, trachea midline - Chest Chest inspection: Present: normal inspection, symmetric chest wall rise - Respiratory Respiratory exam: Present: normal lung sounds bilaterally - Cardiovascular Cardiovascular exam: Present: regular rate, normal rhythm, normal heart sounds - Abdominal Exam Abdominal exam: Present: soft, Non-Tender, normal bowel sounds. Absent: tenderness, distention, guarding, rebound, rigidity - Extremities Exam Extremities exam: Present: normal inspection, full ROM. Absent: tenderness, p edal edema - Back Exam Back exam: Present: normal inspection, full ROM. Absent: tenderness - Neurological Exam Neurological exam: Present: alert, oriented X3 - Skin Skin exam: Present: warm, dry, intact, normal color Course Course Narrative: Due to patient's recent cardiac history I do feel patient needs to be admitted to the hospital. We will get basic labs including CBC, BMP, troponin and EKG chest x-ray. We will give patient full dose aspirin. He is not having chest pain at this time so we will hold off on giving nitroglycerin until he is chest pain. Patient okay with this plan. Patient did have a CT angiogram of his chest which was negative troponin embolism back in August also got good use of the aorta which also was negative for pain aortic aneurysm. This very low likelyhood that is what is going on at this time. Vital Signs Temperature 97.6 F 10/24/18 03:40 Pulse Rate 73 10/24/18 03:40 Respiratory Rate 18 10/24/18 03:40 Blood Pressure 143/67 10/24/18 03:40 O2 Sat by Pulse Oximetry 98 10/24/18 03:40 Temperature 97.4 F L 10/24/18 16:13 Pulse Rate 67 10/24/18 16:13 Respiratory Rate 19 10/24/18 16:13 Blood Pressure 128/74 10/24/18 16:13 O2 Sat by Pulse Oximetry 97 10/24/18 16:13 Oxygen Delivery Oxygen Delivery Room Air Chest Pain - MDM Narrative Medical decision making narrative: Patient was given aspirin here was not given nitroglycerin as he did not have chest pain did take nitroglycerin just prior to his arrival he did take his chest pain completely away. When reviewing the EKG the EKG was better than previous one [address] depressions this one was showing no acute abnormalities no signs of STEMI. Patient's troponin was elevated to 0.36. It was 2.8 approximately 2 days ago. This is down from previously. He was mildly hyponatremic at 127. This was similar to when he was admitted back in August. We did give him 500 mL IV bolus of normal saline. Did not want to give him too much fluid as he does have history of CHF did not want to fluid overload the patient. I did admit the patient to the hospitalist as he does need further wor kup secondary to his chest pain as well as having recent endoscopy showing gastric ulcer recent heart catheterization and open-heart surgery in August. I spoke with Dr. Polanco who agreed to admit the patient to their service. Patient is admitted in stable condition. Chest X-Ray 10/24/18 03:38 IMPRESSION: No evidence for acute cardiopulmonary process. D/ / Eleazar Cardona MD / Eleazar Cardona MD Interpreting Provider: Eleazar Cardona MD - Medical Records Medical records reviewed: Yes I reviewed the patient's medical records. - Lab Data Lab results reviewed: Yes I reviewed the patient's lab results. Result diagrams: 10/24/18 05:15 10/24/18 04:16 Lab Results 10/24/18 10/24/18 10/24/18 Range/Units 04:16 04:33 05:15 WBC 9.2 (4.3-11.1) K/mcL RBC 4.42 (4.19-5.50) M/mcL Hgb 13.3 (12.9-16.9) g/dL Hct 38.9 (37.5-50.1) % MCV 88.0 (83.0-100.0) fL MCH 30.1 (28.0-33.3) pg MCHC 34.2 (31.6-35.5) g/dL RDW 12.9 (11.5-14.5) % Plt Count 308 (140-400) K/mcL MPV 8.9 L (9.4-12.4) fL Immature Gran % 0.7 (0-4) % Seg Neutrophils % 68.1 % Lymphocytes % 18.9 % Monocytes % 9.8 % Eosinophils % 2.2 % Basophils % 0.3 % Neutrophils # 6.3 (1.6-8.9) K/mcL Lymphocytes # 1.7 (0.6-4.6) K/mcL Monocytes # 0.9 (0.0-1.3) K/mcL Eosinophils # 0.2 (0.0-0.6) K/mcL Basophils # 0.0 (0.0-0.2) K/mcL Sodium 127 L (136-145) mEq/L Potassium 4.2 (3.5-5.1) mEq/L Chloride 97 L (98-107) mEq/L Carbon Dioxide 21 L (23-29) mEq/L BUN 18 (8-23) mg/dL Creatinine 1.06 (0.70-1.30) mg/dL Est GFR ( Amer) > 60 (> 60) Est GFR (Non-Af Amer) > 60 (> 60) BUN/Creatinine Ratio 17 (6-26) Glucose 266 H (70-105) mg/dL Calculated Osmolality 275 L (280-300) Calcium 9.6 (8.6-10.3) mg/dL Troponin I 0.36 H* (< 0.04) ng/mL Specimen Rejected Clotted - Radiology Data Radiology results reviewed: Yes I reviewed the patient's radiology results. - EKG Data EKG attestation: Yes I reviewed and interpreted this EKG. EKG results narrative: EKG done at 0 344 review myself and attending shows sinus rhythm at a rate of 71, OR interval to 30, QRS 110, QTc 426. There is no acute ST changes no acute T-wave changes no other signs of ischemia. No signs of hypertrophy, heart strain, heart block. No WPW/Brugada/HOCM. EKG is improved from previous EKG done 10/20/[address] depressions in the anterior leads with no reciprocal changes. The ST depressions are now gone. Heart Score - Score History: Moderately Suspicious EKG: Normal Age: Greater than 65 Risk Factors: Equal/Greater than 3 risk factor or history of atherosclerotic disease Troponin: Greater than 3x normal limit HEART Score Total: 7 Attestation Statement - Attestation Attestation: I have seen this patient with the resident physician, I have personally evaluated this patient. I had reviewed the chart and document dictation by the resident physician and aM in agreement with the information documented by the resident physician. Please see documentation by the resident physician for complete chart including past medical history, family medical history, review of systems, current history and physical and laboratory and imaging studies. I was present for all procedures, provided direct supervision for all procedures, was present for the entirety of all procedures and provided direct guidance during the procedures. Please see documentation by the resident physician for any procedures performed. I have reviewed all interpretations of EKGs, and reviewed all EKGs performed on patient's as well. I have also reviewed reports of imaging as provided by r kun.
[2018-10-24 04:53] LABS: BUN/Creatinine Ratio 17 (6-26); Blood Urea Nitrogen 18 mg/dL (8-23); Calcium 9.6 mg/dL (8.6-10.3); Carbon Dioxide 21 mEq/L (23-29); Chloride 97 mEq/L (98-107); Glucose 266 mg/dL (70-105); Osmolality,Calculated 275 (280-300); Potassium 4.2 mEq/L (3.5-5.1); Sodium 127 mEq/L (136-145); eGFR For African Americans > 60 (> 60); eGFR For Non-African Americans > 60 (> 60)
[2018-10-24 04:57] LABS: Troponin I 0.36 ng/mL (< 0.04)
[2018-10-24 05:26] LABS: Basophils % 0.3 %; Eosinophils # 0.2 K/mcL (0.0-0.6); Eosinophils % 2.2 %; Hematocrit 38.9 % (37.5-50.1); Hemoglobin 13.3 g/dL (12.9-16.9); Immature Granulocytes % 0.7 % (0-4); Lymphocytes # 1.7 K/mcL (0.6-4.6); Lymphocytes % 18.9 %; Mean Corpuscular HGB Conc 34.2 g/dL (31.6-35.5); Mean Corpuscular Hemoglobin 30.1 pg (28.0-33.3); Mean Platelet Volume 8.9 fL (9.4-12.4); Monocytes # 0.9 K/mcL (0.0-1.3); Monocytes % 9.8 %; Neutrophils # 6.3 K/mcL (1.6-8.9); Platelet Count 308 K/mcL (140-400); Red Blood Count 4.42 M/mcL (4.19-5.50); Red Cell Distribution Width 12.9 % (11.5-14.5); Segmented Neutrophils % 68.1 %; White Blood Count 9.2 K/mcL (4.3-11.1)
[2018-10-24] MEDS ORDERED: 0.9 % Sodium Chloride 500 ML IVC ONE (05:43)
--- NOTE | 2018-10-24 06:45 | Emergency Department Note ---
Disposition Clinical Impression: Chest pain, CAD (coronary artery disease), Hyponatremia Disposition: Admitted As Inpatient Condition: Fair Forms: ED Satisfaction Letter Time of Disposition: 06:45 General Adult HPI - General Chief complaint: ED Chest Pain Stated complaint: Chest Pain Time Seen by Provider: 10/24/18 03:37 Source: patient Mode of arrival: ambulatory Limitations: no limitations Nursing Notes Reviewed: Yes Vital Signs Reviewed: Yes - History of Present Illness Pain Scale: 5 - Related Data Home Medications Medication Instructions Recorded Confirmed Diltiazem HCl [Diltiazem 24Hr Cd] 240 mg PO DAILY 08/04/18 10/24/18 Lisinopril [Zestril] 20 mg PO DAILY 08/04/18 10/24/18 Metformin HCl 1,000 mg PO BID 08/04/18 10/24/18 Simvastatin [Zocor] 40 mg PO DAILY 08/04/18 10/24/18 Tamsulosin [Flomax] 0.4 mg PO BID 08/04/18 10/24/18 glipiZIDE [Glipizide] 10 mg PO DAILY 08/04/18 10/24/18 Nitroglycerin 0.4 mg SL Q5M PRN 08/18/18 10/24/18 Aspirin [Lo-Dose Aspirin EC] 81 mg PO DAILY 10/19/18 10/24/18 Previous Rx's Medication Instructions Recorded Metoprolol [Lopressor] 50 mg PO BID #60 tablet 08/27/18 Atorvastatin Calcium [Lipitor] 80 mg PO HS #30 tab 10/21/18 Clopidogrel [Plavix] 75 mg PO HS #0 10/21/18 Isosorbide MONOnitrate (24 HR) 90 mg PO DAILY #90 tab.er.24h 10/21/18 [Imdur] Pantoprazole Sodium [Protonix] 40 mg PO DAILY #30 tablet.dr 10/21/18 Ranolazine [Ranexa] 1,000 mg PO BID #120 tab.er.12h 10/21/18 Allergies Allergy/AdvReac Type Severity Reaction Status Date / Time No Known Allergies Allergy Verified 10/24/18 03:46 Past Medical History - Past Medical History Medical history: Reports: coronary artery disease, CVA, diabetes, hypertension, myocardial infarction, peripheral artery disease, other Surgical history: Reports: knee replacement (Left total knee replacement, right total knee replacement), other (Left cataract excision with intraocular lens implantation, right cataract excision with intraocular lens implantation) Psychiatric history: Reports: no psych history - Social History Smoking Status: Former smoker Smokeless Tobacco Status: Yes Alcohol use: Reports: occasionally Drug use: Reports: none Physical Exam - General Limitations: no limitations General appearance: alert Course Vital Signs Temperature 97.6 F 10/24/18 03:40 Pulse Rate 73 10/24/18 03:40 Respiratory Rate 18 10/24/18 03:40 Blood Pressure 143/67 10/24/18 03:40 O2 Sat by Pulse Oximetry 98 10/24/18 03:40 Temperature 97.6 F 10/24/18 03:40 Pulse Rate 71 10/24/18 04:02 Respiratory Rate 20 10/24/18 04:02 Blood Pressure 137/71 10/24/18 04:02 O2 Sat by Pulse Oximetry 99 10/24/18 04:02 Oxygen Delivery Oxygen Delivery Room Air Medical Decision Making - Lab Data Result diagrams: 10/24/18 05:15 10/24/18 04:16 Lab Results 10/24/18 10/24/18 10/24/18 Range/Units 04:16 04:33 05:15 WBC 9.2 (4.3-11.1) K/mcL RBC 4.42 (4.19-5.50) M/mcL Hgb 13.3 (12.9-16.9) g/dL Hct 38.9 (37.5-50.1) % MCV 88.0 (83.0-100.0) fL MCH 30.1 (28.0-33.3) pg MCHC 34.2 (31.6-35.5) g/dL RDW 12.9 (11.5-14.5) % Plt Count 308 (140-400) K/mcL MPV 8.9 L (9.4-12.4) fL Immature Gran % 0.7 (0-4) % Seg Neutrophils % 68.1 % Lymphocytes % 18.9 % Monocytes % 9.8 % Eosinophils % 2.2 % Basophils % 0.3 % Neutrophils # 6.3 (1.6-8.9) K/mcL Lymphocytes # 1.7 (0.6-4.6) K/mcL Monocytes # 0.9 (0.0-1.3) K/mcL Eosinophils # 0.2 (0.0-0.6) K/mcL Basophils # 0.0 (0.0-0.2) K/mcL Sodium 127 L (136-145) mEq/L Potassium 4.2 (3.5-5.1) mEq/L Chloride 97 L (98-107) mEq/L Carbon Dioxide 21 L (23-29) mEq/L BUN 18 (8-23) mg/dL Creatinine 1.06 (0.70-1.30) mg/dL Est GFR ( Amer) > 60 (> 60) Est GFR (Non-Af Amer) > 60 (> 60) BUN/Creatinine Ratio 17 (6-26) Glucose 266 H (70-105) mg/dL Calculated Osmolality 275 L (280-300) Calcium 9.6 (8.6-10.3) mg/dL Troponin I 0.36 H* (< 0.04) ng/mL Specimen Rejected Clotted Attestation Statement - Attestation Attestation: I have seen this patient with the resident physician, I have personally evaluated this patient. I had reviewed the chart and document dictation by the resident physician and aM in agreement with the information documented by the resident physician. Please see documentation by the resident physician for complete chart including past medical history, family medical history, review of systems, current history and physical and laboratory and imaging studies. I was present for all procedures, provided direct supervision for all proce dures, was present for the entirety of all procedures and provided direct guidance during the procedures. Please see documentation by the resident physician for any procedures performed. I have reviewed all interpretations of EKGs, and reviewed all EKGs performed on patient's as well. I have also reviewed reports of imaging as provided by radiology. Patient presented emergency department with chief complaint of chest pain. He was just discharged from the hospital about 3 days ago. He did have a non-ST segment elevation myocardial infarction at that time with a troponin upwards of 2.8. 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 He had an endoscopy performed which showed ulcer and gastritis but no bleeding no other acute findings. Patient states that he has had chest pain ever since going home but increased episodic symptoms her last 24 hours, he took nitroglycerin glycerin yesterday which may go away and took 2 nitroglycerin tonight which made it go away. No fevers no chills no pleuritic pain. EKG today demonstrated normal sinus rhythm, with actual significant improvement appearance to leads V1 through V3, with no evidence of acute ST elevation no evidence of ST depression with resolution of prior ST depression from prior EKG within leads V1 through V3, no evidence of abnormal rhythm worsening abnormal intervals. Chest x-ray as interpreted by radiology showed no acute findings. Basic laboratory studies chemistry hyponatremia 127 decreased from 135 from admission however he was 128 at admission in August of this year. He was given a small 500 mL bolus of IV fluids for this. Troponin was 0.36 decreased from 2.8, this is less than 0.6 and he is chest pain-free at this time with improved appearance of his EKG, I will not initiate heparin at this time, this will require trending. He remained chest pain-free throughout his stay in the emergency department, and he was admitted to the hospital for further evaluation and management. Hospitalist service accepted this patient.
[2018-10-24 09:14] LABS: Bilirubin,Urine Negative (Negative); Blood,Urine Negative (Negative); Clarity,Urine Clear (Clear); Color,Urine Yellow (Yellow); Glucose,Urine (UA) >=1000 mg/dL (Normal); Ketones,Urine Negative (Negative); Leukocyte Esterase,Urine Negative (Negative); Nitrite,Urine Negative (Negative); Protein,Urine Negative (Neg-Trace); Specific Gravity,Urine 1.018 (1.010-1.025); Urobilinogen,Urine Normal (Normal)
[2018-10-24] MEDS ORDERED: Nitroglycerin 0.4 MG TAB.SUBL SL PRN (09:26)
[2018-10-24] MEDS ORDERED: Dextrose Gel 15 GM/37.5 ML TUBE PO PRN ×2 (09:28)
[2018-10-24] MEDS ORDERED: *HR* Dextrose 50 % in Water (Syg) 50 ML SYRINGE IVP PRN (09:28)
[2018-10-24] MEDS ORDERED: D5% in Water 1,000 ML IVC PRN (09:28)
[2018-10-24] MEDS ORDERED: *HR* HYDROcodone/Acet 5/325 mg TABLET PO PRN (09:29)
[2018-10-24] MEDS ORDERED: Naloxone 0.4 MG/ML INJ IVP PRN (09:29)
[2018-10-24] MEDS ORDERED: Ondansetron 4 MG/2 ML VIAL IVP PRN (09:29)
--- NOTE | 2018-10-24 09:36 | Internal Med History&Physical ---
Date of Encounter: 10/24/18 Time of Encounter: 07:00 Internal Medicine - H&P: HPI Chief complaint: CP History of present illness: Mr. Rogers is a 67 year old male with history of diabetes, hypertension, coronary artery disease status post CABG who presented to the hospital with left sided chest pain that is radiating to the right side associated with shortness of breath. The patient denies palpitation diaphoresis, orthopnea, paroxysmal nocturnal dyspnea, or progressive forcing of lower extremity edema. The patient was evaluated by the ER staff and ECG and EKG revealed no ST T wave changes. His laboratory data indicated mildly elevated troponin. Reviewing the patient's record revealed that the patient was just D/C from the hospital after he was treated for non-ST elevation [place], he s/p heart catheterization and was found to have triple-vessel coronary artery disease. He underwent CTU or circumflex and right coronary arteries. Due the persistence of CP mainly after eating, gastroenterology was consulted and patient underwent upper GI endoscopy which showed gastritis and gastric ulcer and was placed on PPI. Decision was made to not start heparin drip as well as nitroglycerin drip given that the current troponin is actually is trending down from the prior troponin on his last admission. The patient will be admitted to trend troponin and for further evaluation and management. Past Med Surg Social Fam HX - Past Medical History Medical history: coronary artery disease, CVA, diabetes, hypertension, myocardial infarction, peripheral artery disease, other Additional medical history: chronic back pain Psychiatric history: no psych history - Past Surgical History Surgical History: knee replacement (Left total knee replacement, right total knee replacement), other (Left cataract excision with intraocular lens implantation, right cataract excision with intraocular lens implantation) Additional surgical history: bilateral knee replacement, heart cath, Duuble Bypass - Social History Smoking Status: Former smoker Smokeless Tobacco Status: Yes Alcohol use: occasionally Drug use: none - Family History Mother Family Member Ethnicity: Non- Living Status: Hx Family Cancer: Yes (Reproductive cancer) Hx Family Endocrine Disorder: Yes (DM) Father Family Member Ethnicity: Non- Living Status: Hx Family Cardiac Disorders: Yes ([place]) Brother Family Member Ethnicity: Non- Living Status: Still Living Hx Family Cardiac Disorders: Yes (Open heart, stents) Hx Family Cancer: Yes (Bone, brain, lung) Hx Family Endocrine Disorder: Yes (DM) Sister Family Member Ethnicity: Non- Living Status: Hx Family Respiratory Disorders: Yes (Asthma) Hx Family Endocrine Disorder: Yes (DM) Internal Medicine - H&P: Meds Diltiazem HCl [Diltiazem 24Hr Cd] 240 mg PO DAILY 08/04/18 [History] Lisinopril [Zestril] 20 mg PO DAILY 08/04/18 [History] Metformin HCl 1,000 mg PO BID 08/04/18 [History] Tamsulosin [Flomax] 0.4 mg PO BID 08/04/18 [History] glipiZIDE [Glipizide] 10 mg PO DAILY 08/04/18 [History] Nitroglycerin 0.4 mg SL Q5M PRN 08/18/18 [History] Metoprolol [Lopressor] 50 mg PO BID #60 tablet 08/27/18 [Rx] Aspirin [Lo-Dose Aspirin EC] 81 mg PO DAILY 10/19/18 [History] Atorvastatin Calcium [Lipitor] 80 mg PO HS #30 tab 10/21/18 [Rx] Clopidogrel [Plavix] 75 mg PO HS #0 10/21/18 [Rx] Isosorbide MONOnitrate (24 HR) [Imdur] 90 mg PO DAILY #90 tab.er.24h 10/21/18 [Rx] Pantoprazole Sodium [Protonix] 40 mg PO DAILY #30 tablet.dr 10/21/18 [Rx] Ranolazine [Ranexa] 1,000 mg PO BID #120 tab.er.12h 10/21/18 [Rx] Allergy/AdvReac Type Severity Reaction Status Date / Time No Known Allergies Allergy Verified 10/24/18 16:07 All Systems PM: A 10-system review of systems was performed and is negative for pertinent findings except as documented above in the HPI. - Constitutional Vitals: Temp Pulse Resp BP Pulse Ox 97.4 F L 58 16 127/53 98 10/24/18 08:20 10/24/18 08:20 10/24/18 08:20 10/24/18 08:20 10/24/18 08:20 General appearance: Present: A&O X 3 Exam: ` - Head Head exam: Present: atraumatic, normocephalic - Neck Neck exam general surgery: Present: supple, trachea midline. Absent: lymphadenopathy - Respiratory Respiratory exam: Present: CTAB. Absent: accessory muscle use, rales, rhonchi, wheezes - Cardiovascular Cardiovascular exam: Present: RRR, +S1, +S2. Absent: diastolic murmur, gallop, rubs, systolic murmur - GI/Abdominal GI/Abdominal exam: Present: normal bowel sounds, soft, no peritoneal signs. Absent: distended, tenderness - Extremities Exam Extremities exam: Present: warm, radial pulses palpable and symmetrical. Absent: calf tenderness, cyanotic, pedal edema Internal Med - H&P Results - Labs CBC & Chem 7: 10/24/18 05:15 10/24/18 04:16 Labs: Short CBC 10/24/18 Range/Units 05:15 WBC 9.2 (4.3-11.1) K/mcL Hgb 13.3 (12.9-16.9) g/dL Hct 38.9 (37.5-50.1) % Plt Count 308 (140-400) K/mcL Neutrophils # 6.3 (1.6-8.9) K/mcL BMP 10/24/18 04:16 Sodium 127 L Potassium 4.2 Chloride 97 L Carbon Dioxide 21 L BUN 18 Creatinine 1.06 Glucose 266 H Calcium 9.6 Cardiac Enzymes 10/24/18 Range/Units 04:16 Troponin I 0.36 H* (< 0.04) ng/mL Urine 10/24/18 Range/Units 09:04 Urine Color Yellow (Yellow) Urine Clarity Clear (Clear) Urine pH 6.0 (5.0-8.0) pH Units Ur Specific [place] 1.018 (1.010-1.025) Urine Protein Negative (Neg-Trace) mg/dL Urine Glucose (UA) >=1000 H (Normal) mg/dL - Impressions ITS Impressions Chest X-Ray 10/24/18 03:38 IMPRESSION: No evidence for acute cardiopulmonary process. D/ / Eleazar Cardona MD / Eleazar Cardona MD Interpreting Provider: Eleazar Cardona MD - Assessment and Plan (1) Chest pain Current Visit: No Status: Acute Assessment and plan: The patient was evaluated by the ER staff and ECG and EKG revealed no ST T wave changes. His laboratory data indicated mildly elevated troponin. Reviewing the patient's record revealed that the patient was just D/C from the hospital after he was treated for non-ST elevation [place], he s/p heart catheterization and was found to have triple-vessel coronary artery disease. He underwent CTU or circumflex and right coronary arteries. Due the persistence of CP mainly after eating, gastroenterology was consulted and patient underwent upper GI endoscopy which showed gastritis and gastric ulcer and was placed on PPI. Decision was made to not start heparin drip as well as nitroglycerin drip given that the current troponin is actually is trending down from the prior troponin on his last admission. The patient will be admitted to trend troponin and for further evaluation and management. Qualifiers: Qualified Code(s): R07.9 - Chest pain, unspecified (2) Diabetes Current Visit: No Status: Chronic Assessment and plan: We will start the patient on insulin sliding scale with moderate coverage. Qualifiers: Qualified Code(s): E11.9 - Type 2 diabetes mellitus without complications (3) HTN (hypertension) Current Visit: No Status: Chronic Assessment and plan: We will cont. home meds and continue to monitor blood pressure while inpatient and adjust regimen if indicated Qualifiers: Qualified Code(s): I10 - Essential (primary) hypertension (4) HLD (hyperlipidemia) Current Visit: No Status: Chronic Assessment and plan: We will continue home statin and obtain fasting lipid profile. Qualifiers: Qualified Code(s): E78.5 - Hyperlipidemia, unspecified (5) COPD (chronic obstructive pulmonary disease) Current Visit: No Status: Acute Qualifiers: Qualified Code(s): J44.9 - Chronic obstructive pulmonary disease, unspecified (6) CAD (coronary artery disease) Current Visit: Yes Status: Acute Assessment and plan: We will continue current aggressive medical management as recommended by cardiology team during the last admission. The patient stated that he is compliant with all of his medication Qualifiers: Qualified Code(s): I25.10 - Atherosclerotic heart disease of [place] coronary artery without angina pectoris (7) Hyponatremia Current Visit: Yes Status: Acute Assessment and plan: The patient is euvolemic on exam. We will obtain urine osmolality serum osmolality, and urine electrolytes - Time Spent With Patient Total time spent is greater than 50% in coordination of care (as documented) at patient's floor/unit and/or counseling patient:
[2018-10-24] MEDS: Insulin LISPRO 300 UNITS/3 ML VIAL SQ SCH ×3 (11:31→20:59)
[2018-10-24] MEDS: Ranolazine 500 MG TAB.ER.12H PO SCH ×2 (17:38→17:41)
[2018-10-24] MEDS: Isosorbide MONOnitrate (24 HR) 30 MG TAB.ER.24H PO SCH (17:40)
[2018-10-24] MEDS ORDERED: Ranolazine 500 MG TAB.ER.12H PO SCH (21:00)
[2018-10-25 06:20] LABS: Basophils % 0.6 %; Eosinophils # 0.3 K/mcL (0.0-0.6); Eosinophils % 3.9 %; Hematocrit 37.5 % (37.5-50.1); Hemoglobin 12.9 g/dL (12.9-16.9); Immature Granulocytes % 0.7 % (0-4); Lymphocytes # 2.2 K/mcL (0.6-4.6); Lymphocytes % 30.6 %; Mean Corpuscular HGB Conc 34.4 g/dL (31.6-35.5); Mean Corpuscular Hemoglobin 29.7 pg (28.0-33.3); Mean Corpuscular Volume 86.2 fL (83.0-100.0); Mean Platelet Volume 8.9 fL (9.4-12.4); Monocytes # 0.7 K/mcL (0.0-1.3); Monocytes % 9.8 %; Platelet Count 293 K/mcL (140-400); Red Blood Count 4.35 M/mcL (4.19-5.50); Red Cell Distribution Width 12.8 % (11.5-14.5); Segmented Neutrophils % 54.4 %; White Blood Count 7.3 K/mcL (4.3-11.1)
[2018-10-25 06:27] LABS: INR 1.1; Prothrombin Time 12.5 Seconds (9.4-12.1)
[2018-10-25 06:29] LABS: Activated Partial Thrombo Time 36.1 Seconds (26.0-36.0)
[2018-10-25 06:38] LABS: Alanine Aminotransferase 10 Units/L (7-52); Albumin 3.9 g/dL (3.5-5.7); Albumin/Globulin Ratio 1.4 (1.1-2.2); Alkaline Phosphatase 71 Units/L (34-104); Aspartate Amino Transferase 12 Units/L (13-39); BUN/Creatinine Ratio 12 (6-26); Blood Urea Nitrogen 11 mg/dL (8-23); Calcium 9.2 mg/dL (8.6-10.3); Carbon Dioxide 24 mEq/L (23-29); Chloride 98 mEq/L (98-107); Chol/HDL Ratio 2.2 (0-4.9); Cholesterol 74 mg/dL (< 200); Globulin 2.7 g/dL (2.4-3.5); Glucose 107 mg/dL (70-105); HDL Cholesterol 33 mg/dL (40-59); LDL Cholesterol,Calculated 23 mg/dL (0-99); Magnesium 1.6 mg/dL (1.6-2.6); Osmolality,Calculated 270 (280-300); Phosphorous 3.4 mg/dL (2.7-4.5); Potassium 4.2 mEq/L (3.5-5.1); Sodium 130 mEq/L (136-145); Total Protein 6.6 g/dL (6.4-8.9); Triglycerides 91 mg/dL (< 150); eGFR For African Americans > 60 (> 60); eGFR For Non-African Americans > 60 (> 60)
[2018-10-25 07:28] LABS: Estimated Average Glucose 151 mg/dl
[2018-10-25] MEDS: Insulin LISPRO 300 UNITS/3 ML VIAL SQ SCH ×4 (07:51→21:13)
[2018-10-25] MEDS: Ranolazine 500 MG TAB.ER.12H PO SCH ×2 (08:40→21:12)
[2018-10-25] MEDS: Aspirin Enteric Coated 81 MG Tablet PO SCH (08:40)
[2018-10-25] MEDS: Diltiazem CD (24hr) 240 MG CAPSULE PO SCH (08:40)
[2018-10-25] MEDS: Isosorbide MONOnitrate (24 HR) 30 MG TAB.ER.24H PO SCH (08:41)
[2018-10-25] MEDS ORDERED: Lisinopril 20 MG TABLET PO SCH ×2 (09:00→16:39)
[2018-10-25] MEDS ORDERED: Isosorbide MONOnitrate (24 HR) 30 MG TAB.ER.24H PO SCH (09:00)
--- NOTE | 2018-10-25 12:00 | Internal Med Progress Note ---
Hospitalist Progress Note - Encounter Date of Encounter: 10/25/18 Time of Encounter: 11:58 - Subjective Interval History: Pt still having discomfort, says it is exertional but also occurs when pt lying flat sleeping at home, a/w shortness of breath, and also L chest is tender to the touch throughout the chest from L sternum down toward nipple. Walked patient around and he did not have pain but belched a few times and said that this typically precedes his pain. - Exam Vitals: Temp Pulse Resp BP Pulse Ox 98.1 F 65 12 117/59 97 10/25/18 07:04 10/25/18 07:04 10/25/18 07:04 10/25/18 07:04 10/25/18 05:30 Exam: General: NAD, good eye contact, chronically ill appearing Thoracic: Normal breath sounds b/l, no wheezing or crackles Cardio: Normal S1 and S2, regular rate and rhythm Abdomen: Soft, nontender, obese Extremities: Warm, well perfused. DP pulses 2+ b/l. Skin: Intact. No rashes, bruises, or ulcers Neuro: Awake, fully oriented. Speech fluent. Gait normal. - Assessment and Plan (1) Chest pain Current Visit: No Status: Acute Assessment and Plan: Leo Rogers is a 67 M w hx CAD s/p 2vCABG 08/2018, HTN, HLD, DM2, COPD, morbid obesity, smoker, who re-presents with chest pain a few days after inpatient workup revealed patent CABG and new gastric ulcer. Chest pain: atypical, exertional and character suspicious for angina, and recently had CABG 2 months ago. C last week unremarkable for major vessel/bypass graft abnormality, and does have gastritis and ulcer for which PPI just started. - Cardio consult - increase imdur to 120 - continue anti-anginal meds - trial GI cocktail Euvolemic. Urine sodium high and osmoles high. Given small fluid bolus yesterday and repeat sodium today slightly improved, and repeat Uosm improved from 500s to 300s. - repeat sodium in AM PUD and gastritis: PPI bid CAD s/p CABG, HLD: HTN: controlled, home meds DM2 c/b CAD: SSI COPD: home inhalers Smoker: nicotine patch, cessation advised Morbid obesity: BMI 44 PPx: lovenox FEN: cardiac, no MIVF Lines: PIV Consults: Cardio Code: Full Dispo: obs for chest pain, anticipate 1-2 days. Will be homegoing (2) Hyponatremia Current Visit: Yes Status: Acute Internal Medicine: Result - Labs CBC & Chem 7: 10/25/18 05:58 10/25/18 05:58 Labs: Short CBC 10/25/18 Range/Units 05:58 WBC 7.3 (4.3-11.1) K/mcL Hgb 12.9 (12.9-16.9) g/dL Hct 37.5 (37.5-50.1) % Plt Count 293 (140-400) K/mcL Neutrophils # 4.0 (1.6-8.9) K/mcL BMP 10/25/18 05:58 Sodium 130 L Potassium 4.2 Chloride 98 Carbon Dioxide 24 BUN 11 Creatinine 0.95 Glucose 107 H Calcium 9.2 Cardiac Enzymes 10/24/18 10/24/18 Range/Units 15:57 21:52 Troponin I 0.30 H* 0.36 H* (< 0.04) ng/mL Liver Function 10/25/18 Range/Units 05:58 Total Bilirubin 1.0 (0.3-1.0) mg/dL AST 12 L (13-39) Units/L ALT 10 (7-52) Units/L Alkaline Phosphatase 71 (34-104) Units/L Albumin 3.9 (3.5-5.7) g/dL - ABG Interpretation ABG results: PT/INR, D-dimer PT 12.5 Seconds (9.4-12.1) H 10/25/18 05:58 Consult Discharge Plan - Plan Referrals: Kendall Garcia DO [Primary Care Provider] - (1) Chest pain Qualifiers: Qualified Code(s): R07.9 - Chest pain, unspecified
--- NOTE | 2018-10-25 13:15 | Cardiology Consult Note ---
<Jewell Temple N - Last Filed: 10/25/18 14:08> Date of Encounter: 10/25/18 Time of Encounter: 13:01 Assessment and Plan (1) Chest pain Current Visit: Yes Status: Acute Patient reports persistent chest pain despite increase in his dose of imdur from 60mg to 90mg per day prior to hospital discharge last week. Unclear if etiology is strictly cardiac as endoscopy performed on 10/21/2018 was significant for non-bleeding gastric ulcer and gastritis. Recommendations: - Agree with optimization of medical management, including increase in dose of imdur from 90mg to 120mg daily. - Optimize management of GI symptoms. GI cocktail ordered to see if symptoms are improved. - Can consider non-pharmacologic therapies for refractory angina on outpatient basis. Qualifiers: Chest pain type: unspecified Qualified Code(s): R07.9 - Chest pain, unspecified (2) CAD (coronary artery disease) Current Visit: Yes Status: Acute History of triple vessel disease. S/p 2 vessel CABG in August 2018. Continue aspirin, statin, and beta dale. Qualifiers: Coronary Disease-Associated Artery/Lesion type: unspecified vessel or lesion type [place] vs. transplanted heart: [place] heart Associated angina: angina presence unspecified Qualified Code(s): I25.10 - Atherosclerotic heart disease of [place] coronary artery without angina pectoris Discussion w patient/family: The assessment and plan as outlined above was discussed with the patient and/or family members who expressed understanding and agreement. All questions were answered. Thank you for involving us in the care of your patient. Please call with any questions. History of Present Illness Consult date: 10/25/18 Requesting physician: Eleazar Lr Consult reason: Chest pain, hx CABG August 2018 Chief complaint: Chest pain History of present illness: Mr. Rogers is a 67 year old male with a history of CAD s/p CABG in August 2018, DM, HTN, NC, and PAD. He presented to the emergency department on 10/24/2018 for evaluation of [id number] chest pain with radiation to the right side associated with shortness of breath. Patient was recently discharged from this facility on 10/21/2018, after admission for similar complaints. During that visit, patient was found to have an NSTEMI, and underwent LHC, which demonstrated triple-vessel CAD. Patient was evaluated by cardiology sercice during that admission, and home medication of imdur was increased due to persistent chest pain. Upon presentation to the ED yesterday, patient was noted to have an elevated troponin of 0.36; however, this was noted to be downtrending from prior; therefore, patient was not started on a heparin gtt. Cardiology consult placed for recommendations regarding recurrent chest pain. On evaluation, patient reports intermittent chest pain which is identical in nature to his previous angina. He states that it occurs intermittently at rest or with exertion, and is associated with shortness of breath. He denies any diaphoresis, nasuea, or vomiting. He says that his symptoms have worsened since his CABG in August of this year. He reports that he was discharged from the hospital on , and began experiencing chest pain again on Thursday. He states that his pain is alleviated with nitroglycerin, though he still has persistence of chest discomfort after taking that medication. He states that his symptoms are improved after taking his home medications in the morning; however, he had chest pain that was not alleviated after taking 2 nitroglycerin, prompting him to return to the ED for evaluation. Previous cardiac testing/interventions: * Limited echocardiogram 10/20/2018: LVEF 60%. Definity echo contrast used. Normal LV chamber size, wall thickness, and function. LV diverticulum seen on prior studies (08/04/2018) not well visualized on this limited echocardiogram. * [facility] 10/19/2018: Triple vessel coronary artery disease. 50% distal LM, 40% prox LAD, 50% distal LAD distal to FERRO to LAD anastamosis, 100% ostial/proximal circumflex VISUAL DEVELOPER, 100% ramus VISUAL DEVELOPER with left to left collaterals, 100% proximal RCA VISUAL DEVELOPER with left to right collaterals, FERRO to LAD patent, SVG to OM2 patent. S/p CABG 2/2 patent bypass grafts. Low-normal LV systolic function with segmental dysfunction. EF 50%. * CABG 08/23/2018: Coronary artery bypass grafting 2 with the left internal mammary artery to the LAD and the aorta to obtuse marginal branch #2 of the circumflex with saphenous vein. * [facility] 08/04/2018: There is severe three vessel coronary artery disease. The left ventricle is normal and has normal contractility EF 55%. Diverticulum noted. There is good quality collateral vessel/vessels from the Mid LAD to the Circumflex that are visualized. There is good quality collateral vessel/vessels from the Distal LAD to the RCA that are visualized. * Echocardiogram 08/04/2018: LVEF 55-60%. Mild left ventricular diastolic dysfunction. Definity echo contrast was used. Small LV apical outpouching may represent diverticulum (reported on [facility] 08/04/2018). RV is not optimally visualized. Size and function grossly normal. No significant valvular dysfunction. No pulmonary hypertension. Past Med Surg Social Fam HX - Past Medical History Medical history: coronary artery disease, CVA, diabetes, hypertension, myocardial infarction, peripheral artery disease, other Additional medical history: chronic back pain Psychiatric history: no psych history - Past Surgical History Surgical History: knee replacement (Left total knee replacement, right total knee replacement), other (Left cataract excision with intraocular lens implantation, right cataract excision with intraocular lens implantation) Additional surgical history: bilateral knee replacement, heart cath, Duuble Bypass - Social History Smoking Status: Former smoker Smokeless Tobacco Status: Yes Alcohol use: occasionally Drug use: none - Family History Mother Family Member Ethnicity: Non- Living Status: Hx Family Cancer: Yes (Reproductive cancer) Hx Family Endocrine Disorder: Yes (DM) Father Family Member Ethnicity: Non- Living Status: Hx Family Cardiac Disorders: Yes ([place]) Brother Family Member Ethnicity: Non- Living Status: Still Living Hx Family Cardiac Disorders: Yes (Open heart, stents) Hx Family Cancer: Yes (Bone, brain, lung) Hx Family Endocrine Disorder: Yes (DM) Sister Family Member Ethnicity: Non- Living Status: Hx Family Respiratory Disorders: Yes (Asthma) Hx Family Endocrine Disorder: Yes (DM) Medications and Allergies Diltiazem HCl [Diltiazem 24Hr Cd] 240 mg PO DAILY 08/04/18 [History] Lisinopril [Zestril] 20 mg PO DAILY 08/04/18 [History] Metformin HCl 1,000 mg PO BID 08/04/18 [History] Tamsulosin [Flomax] 0.4 mg PO BID 08/04/18 [History] glipiZIDE [Glipizide] 10 mg PO DAILY 08/04/18 [History] Nitroglycerin 0.4 mg SL Q5M PRN 08/18/18 [History] Metoprolol [Lopressor] 50 mg PO BID #60 tablet 08/27/18 [Rx] Aspirin [Lo-Dose Aspirin EC] 81 mg PO DAILY 10/19/18 [History] Atorvastatin Calcium [Lipitor] 80 mg PO HS #30 tab 10/21/18 [Rx] Clopidogrel [Plavix] 75 mg PO HS #0 10/21/18 [Rx] Isosorbide MONOnitrate (24 HR) [Imdur] 90 mg PO DAILY #90 tab.er.24h 10/21/18 [Rx] Pantoprazole Sodium [Protonix] 40 mg PO DAILY #30 tablet.dr 10/21/18 [Rx] Ranolazine [Ranexa] 1,000 mg PO BID #120 tab.er.12h 10/21/18 [Rx] Allergy/AdvReac Type Severity Reaction Status Date / Time No Known Allergies Allergy Verified 10/24/18 16:07 All Systems Review: The remainder of the systems were reviewed and are negative - Cardiovascular Cardiovascular: chest pain at rest, chest pain with exertion, dyspnea at rest, dyspnea on exertion, no irregular heart rhythm, no radiating jaw, neck or arm pain, no leg edema, no palpitations, no syncope Physical Examination General: Conversant, No Apparent Distress HEENT: Atraumatic, Normocephaly, Mucus Membranes Moist Cardiac: Reg Rate and Rhythm, Normal S1 and S2, No Murmur Lungs: Normal Breath Sounds, No Wheeze, Rales, Rhonchi Neuro: Alert and responsive, No focal deficits noted Abdomen: Soft, Non-Tender Skin: No rashes noted on visualized skin Musculoskeletal: No Chest Wall Tenderness Extremities: No Clubbing, No Cyanosis, No Edema, Normal Pulses Results 10/25/18 05:58 10/25/18 05:58 Lab Results 10/24/18 10/24/18 10/25/18 15:57 21:52 05:58 WBC 7.3 Hgb 12.9 Hct 37.5 Plt Count 293 INR APTT Sodium Potassium Chloride Carbon Dioxide BUN Creatinine Glucose Calcium Magnesium Total Bilirubin AST ALT Alkaline Phosphatase Troponin I 0.30 H* 0.36 H* 10/25/18 10/25/18 05:58 05:58 WBC Hgb Hct Plt Count INR 1.1 APTT 36.1 H Sodium 130 L Potassium 4.2 Chloride 98 Carbon Dioxide 24 BUN 11 Creatinine 0.95 Glucose 107 H Calcium 9.2 Magnesium 1.6 Total Bilirubin 1.0 AST 12 L ALT 10 Alkaline Phosphatase 71 Troponin I Consult Discharge Plan - Plan Referrals: Kendall Garcia DO [Primary Care Provider] - <DanaminhHallie - Last Filed: 10/25/18 17:05> Date of Encounter: 10/25/18 - Attending Attestation I examined this patient and my medical decision-making was reviewed with the Resident Physician. I agree with the documented findings, disposition and treatment plan as described. Mr. Rogers presents for chest pain. Troponins x4 adynamic and downtrending from recent hospitalization. ECG with nonspecific ST, non-acute findings. Symptoms of chest pain reproducible on palpation of anterior chest wall. Recent [facility] 10/19/2018 - recommended medical management. LV systolic function normal. Impression/Plan: 1. Atypical chest pain: Symptoms are reproducible on anterior wall palpation. Presentation not consistent with ACS. Will defer management of musculoskeletal chest pain to primary team. 2. CAD: On optimal medical therapy - asa/plavix, statin, bb, imdur, ranexa. 3. Gastritis: Recommend optimizing medical management. Will sign off. Please call with questions. Assessment and Plan Discussion w patient/family: The assessment and plan as outlined above was discussed with the patient and/or family members who expressed understanding and agreement. All questions were answered. Thank you for involving us in the care of your patient. Please call wi th any questions. History of Present Illness History of present illness: Mr. Rogers is a 67 year old male All Systems Review: The remainder of the systems were reviewed and are negative Physical Examination Vital Signs, Last 4 Hours Temp Pulse Resp BP Pulse Ox 10/25/18 15:23 97.7 F 61 14 105/55 96 Results 10/25/18 05:58 10/25/18 05:58 Lab Results 10/24/18 10/25/18 10/25/18 21:52 05:58 05:58 WBC 7.3 Hgb 12.9 Hct 37.5 Plt Count 293 INR 1.1 APTT 36.1 H Sodium Potassium Chloride Carbon Dioxide BUN Creatinine Glucose Calcium Magnesium Total Bilirubin AST ALT Alkaline Phosphatase Troponin I 0.36 H* 10/25/18 05:58 WBC Hgb Hct Plt Count INR APTT Sodium 130 L Potassium 4.2 Chloride 98 Carbon Dioxide 24 BUN 11 Creatinine 0.95 Glucose 107 H Calcium 9.2 Magnesium 1.6 Total Bilirubin 1.0 AST 12 L ALT 10 Alkaline Phosphatase 71 Troponin I
[2018-10-25] MEDS ORDERED: GI Cocktail 40 ML EACH PO ONE (14:11)
--- NOTE | 2018-10-25 18:04 | Electrocardiograph Report ---
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
--- NOTE | 2018-10-25 18:09 | Electrocardiograph Report ---
[address] [address] Test Date: 2018-10-24 Pat Name: Leo Rogers Department: 111 Room: 2NE16 Gender: M Pediatric Physician: Ashley : 1950 Requested By: Yumiko Lechuga Order Number: [id number] Reading MD: Hallie Valdez Measurements Intervals [place] Rate: 70 P: 49 MO: 210 QRS: -14 QRSD: 114 T: 130 QT: 394 QTc: 414 Interpretive Statements SINUS RHYTHM WITH FIRST DEGREE AV BLOCK INTRAVENTRICULAR CONDUCTION DELAY [110+ ms QRS DURATION] ST DEVIATION AND MODERATE T-WAVE ABNORMALITY, CONSIDER ANTERIOR ISCHEMIA [-0.1+ mV T WAVE IN V3/V4] Electronically Signed On 10-25-2018 18:07:32 EDT by Hallie Valdez
[2018-10-26 04:35] LABS: Hematocrit 37.5 % (37.5-50.1); Hemoglobin 12.8 g/dL (12.9-16.9); Mean Corpuscular HGB Conc 34.1 g/dL (31.6-35.5); Mean Corpuscular Hemoglobin 30.3 pg (28.0-33.3); Mean Corpuscular Volume 88.7 fL (83.0-100.0); Mean Platelet Volume 9.1 fL (9.4-12.4); Platelet Count 315 K/mcL (140-400); Red Blood Count 4.23 M/mcL (4.19-5.50); Red Cell Distribution Width 13.1 % (11.5-14.5); White Blood Count 8.1 K/mcL (4.3-11.1)
[2018-10-26 04:54] LABS: BUN/Creatinine Ratio 14 (6-26); Blood Urea Nitrogen 14 mg/dL (8-23); Calcium 9.2 mg/dL (8.6-10.3); Carbon Dioxide 26 mEq/L (23-29); Chloride 99 mEq/L (98-107); Glucose 108 mg/dL (70-105); Magnesium 1.8 mg/dL (1.6-2.6); Osmolality,Calculated 271 (280-300); Potassium 4.4 mEq/L (3.5-5.1); Sodium 130 mEq/L (136-145); eGFR For African Americans > 60 (> 60); eGFR For Non-African Americans > 60 (> 60)
[2018-10-26] MEDS ORDERED: *HR* Enoxaparin 40 MG/0.4 ML SYRINGE SQ SCH (06:00)
--- NOTE | 2018-10-26 07:31 | Discharge Summary ---
- NOTES TO OUTPATIENT PROVIDER Notes to Outpatient Provider: Refractory chest pain so increased Imdur to 120. Recently started PPI for gastric ulcer. Hyponatremia needs BMP rechecked in 1 week Date of Encounter: 10/26/18 Time of Encounter: 07:28 Hospital course: Dear Doctors, I recently had the opportunity to care for this patient during their recent hospital stay at [facility]. Leo Rogers is a 67 M w hx CAD s/p 2vCABG 08/2018, HTN, HLD, DM2, COPD, morbid obesity, smoker, who re-presents with chest pain a few days after inpatient workup revealed patent CABG and new gastric ulcer. Patient describes two different chest pain sensations: one is related to any physical pressure to the site and patient was encouraged to follow up with his cardiothoracic surgeon. The other is pressure-like and associated with SOB that occurs both during exertion and while lying flat. During this admission, his trops and ECG and CXR were unremarkable. Cardio consulted who offered GI cocktail with improvement in his symptoms as well as increasing Imdur from 90 to 120. Despite no recurrence of his chest pain overnight, patient today is quite frustrated that we have not fixed the chest pain that he is no longer having. Attempted to explain that pain is likely multifactorial, from microvascular cardiac disease to gastric ulcer to post-surgical MSK pain. Otherwise, Na 127 improved to 130 with NS 500cc bolus. Dx: Recurrent angina, hypovolemic hyponatremia Pertinent tests/consults: Cardio consultation Follow up: PCP 1 week for BMP, Cardio for ongoing chest pain Tests pending: none Med changes: increase Imdur from 90 to 120 Mental status: awake, fully oriented Code status: Full It has been my pleasure participating in this patient's care. Please contact me with any questions or concerns regarding their hospital stay. Sincerely, Eleazar Lr MD - Discharge Medications Prescriptions: Continued Tamsulosin [Flomax] 0.4 mg PO BID Metformin HCl 1,000 mg PO BID Lisinopril [Zestril] 20 mg PO DAILY glipiZIDE [Glipizide] 10 mg PO DAILY Diltiazem HCl [Diltiazem 24Hr Cd] 240 mg PO DAILY Nitroglycerin 0.4 mg SL Q5M PRN PRN Reason: Chest Pain Metoprolol [Lopressor] 50 mg PO BID #60 tablet Aspirin [Lo-Dose Aspirin EC] 81 mg PO DAILY Clopidogrel [Plavix] 75 mg PO HS #0 Atorvastatin Calcium [Lipitor] 80 mg PO HS #30 tab Pantoprazole Sodium [Protonix] 40 mg PO DAILY #30 tablet. Ranolazine [Ranexa] 1,000 mg PO BID #120 tab.er.12h Changed Isosorbide MONOnitrate (24 HR) [Imdur] 120 mg PO DAILY #120 tab.er.24h Home Medications: Diltiazem HCl [Diltiazem 24Hr Cd] 240 mg PO DAILY 08/04/18 [History] Lisinopril [Zestril] 20 mg PO DAILY 08/04/18 [History] Metformin HCl 1,000 mg PO BID 08/04/18 [History] Tamsulosin [Flomax] 0.4 mg PO BID 08/04/18 [History] glipiZIDE [Glipizide] 10 mg PO DAILY 08/04/18 [History] Nitroglycerin 0.4 mg SL Q5M PRN 08/18/18 [History] Metoprolol [Lopressor] 50 mg PO BID #60 tablet 08/27/18 [Rx] Aspirin [Lo-Dose Aspirin EC] 81 mg PO DAILY 10/19/18 [History] Atorvastatin Calcium [Lipitor] 80 mg PO HS #30 tab 10/21/18 [Rx] Clopidogrel [Plavix] 75 mg PO HS #0 10/21/18 [Rx] Pantoprazole Sodium [Protonix] 40 mg PO DAILY #30 tablet. 10/21/18 [Rx] Ranolazine [Ranexa] 1,000 mg PO BID #120 tab.er.12h 10/21/18 [Rx] Isosorbide MONOnitrate (24 HR) [Imdur] 120 mg PO DAILY #120 tab.er.24h 10/26/18 [Rx] Allergies/Adverse Reactions: Allergy/AdvReac Type Severity Reaction Status Date / Time No Known Allergies Allergy Verified 10/24/18 16:07 Date of admission: 10/24/18 06:47 Primary care physician: Kendall Garcia DO Consults: 10/24/18 09:35 Consult to Nutrition [CONS] Routine Comment: Consulting Provider: NUTRITION Reason for Dietary Consult: MST Score 10/25/18 11:56 Consult to Cardiology [CONS] Routine Comment: Consulting Provider: Cardiology Shereen Reason for Consult: chest pain in s/p CABG 08/27, recently seen by Cardio Call Completed: Yes - Constitutional Vitals: Temp Pulse Resp BP Pulse Ox 98 F 58 17 112/66 98 10/26/18 04:44 10/26/18 04:44 10/26/18 04:44 10/26/18 04:44 10/26/18 04:44 Exam: General: NAD, good eye contact, chronically ill appearing Thoracic: Normal breath sounds b/l, no wheezing or crackles Cardio: Normal S1 and S2, regular rate and rhythm Abdomen: Soft, nontender, obese Extremities: Warm, well perfused. DP pulses 2+ b/l. Skin: Intact. No rashes, bruises, or ulcers Neuro: Awake, fully oriented. Speech fluent. Gait normal. - Patient Status Disposition: Home, Self-Care Condition: Fair Functional capacity at discharge: independent ambulation Overall status at discharge: patient is back to baseline - Discharge Instructions Follow Up With: Kendall Garcia DO [Primary Care Provider] - - Diet and Activity Activity: resume usual activities as tolerated Diet: diabetic diet, low salt diet
[2018-10-26 07:43] VITALS: BP 122/62
[2018-10-26] MEDS ORDERED: Isosorbide MONOnitrate (24 HR) 60 MG TAB.ER.24H PO SCH (09:00)
[2018-10-26] MEDS: Ranolazine 500 MG TAB.ER.12H PO SCH (09:27)
[2018-10-26] MEDS: Aspirin Enteric Coated 81 MG Tablet PO SCH (09:27)
[2018-10-26] MEDS: Diltiazem CD (24hr) 240 MG CAPSULE PO SCH (09:27)
[2018-10-26] MEDS: Insulin LISPRO 300 UNITS/3 ML VIAL SQ SCH (09:27)
== END 2018-10-26 12:07 | disposition home or self-care (01) ==
LOC: EMEROOARM 03:34 → 2NENU 03:34 → SUATTDRO 06:47 → 2NENU 06:53
PROVIDERS: ADMIT Family Medicine; ATTEND Internal Medicine